=== PATIENT | female | born 1955 | race Caucasian/White ===

== ENCOUNTER 2019-08-20 14:04 | Outpatient (CLI) | payer MEDICARE, SELFPAY ==
--- NOTE | 2019-08-20 14:13 | XR_ITS ---
WS: [id number] SCREENING DEXA SCAN [place] CLINICAL INFORMATION: ENCOUNTER FOR SCREENING FOR OSTEOPOROSIS COMPARISON: 2017 FINDINGS: The L1-L4 bone mineral density measures 1.003 g/cm2. This corresponds to a T score score of -1.5 and Z score of 0.6. Left femoral neck bone mineral density measures 0.716 g/cm2. This corresponds to a T score of -2.3 an d Z score of -0.7. Right femoral neck bone mineral density measures 0.766 g/cm2. This corresponds to a T score -1.9of an d Z score of -0.3. Mean femoral neck bone mineral density measures 0.741 g/cm2. This corresponds to a T score of -2.1 an d Z score of -0.5. XR/XR DEXA axial skeleton* [id number] IMPRESSION: Osteopenia Patient's FRAX calculated 10 year probability for major osteoporotic fracture i s 17.2 % and osteoporotic hip fracture is 5.5%. Since 2017, bone mineral density in the lumbar spine has increased +4.5% and de creased -3.1% in the femoral necks.
== END 2019-08-20 14:05 | disposition home or self-care (01) ==
LOC: RADWPI 14:12
PROVIDERS: Family Provider Family Medicine; PCP Family Medicine; Visit Provider Family Medicine
DX: Z78.0 Asymptomatic menopausal state (principal); Z13.820 Encounter for screening for osteoporosis
CPT/HCPCS: 77080

== ENCOUNTER 2019-09-26 10:06 | Outpatient (RCR) | payer MEDICARE, SELFPAY ==
[2019-09-19 10:30] VITALS: BP 124/55; PULSE 67; RESP 20; TEMP 36; O2SAT 96; BMI 17.8
[2019-09-26 10:19] VITALS: BP 164/67; PULSE 73; RESP 18; TEMP 36.6; O2SAT 99
== END 2019-10-04 23:59 | disposition home or self-care (01) ==
LOC: GILAB 10:06
PROVIDERS: Family Provider Family Medicine; PCP Family Medicine; Visit Provider Nurse Practitioner Family
DX: D50.9 Iron deficiency anemia, unspecified (principal)
CPT/HCPCS: 96365; J1439

== ENCOUNTER 2019-12-17 09:04 | Outpatient (CLI) | payer MEDICARE, SELFPAY ==
--- NOTE | 2019-12-17 09:13 | CT_ITS ---
WS: [id number] CT CHEST TECHNIQUE: Noncontrast CT of the chest with coronal and sagittal reformatted images. CLINICAL INFORMATION: PULMONARY NODULE COMPARISON: CT chest 12/20/2018 and 07/20/2017, June 19, 2016, December 10, 2015 DLP: 509.[address] scans at [facility] use at least one of these dose optimization techniques: automat ed exposure control; mA and/or kV adjustment per patient size (includes targeted exams where dose is matched to clinical indication); or iterative reconstruction. FINDINGS: Advanced chronic emphysematous changes. No acute pulmonary infiltrates. Stable fibrosis in the left u pper lobe anteriorly. A few calcified granulomas. Stable noncalcified tiny nodules in the left lower lobe the largest subpleural measuring 3 mm. No other suspicious pulmonary parenchymal opacities. 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 No mediastinal or hilar lymphadenopathy. Aortic arch calcification. Coronary calcification. No axilla ry lymphadenopathy. Partially visualized adrenal glands are normal. Splenic artery calcification. Mil d spondylitic changes thoracic spine with mild kyphosis. CT/CT chest wo con [id number] IMPRESSION: 1. Stable tiny noncalcified nodules in the left lower lobe the largest measuri ng 3 mm. 2. Advanced chronic emphysematous changes. No acute pulmonary infiltrates. 3. No mediastinal or hilar lymphadenopathy. 4. Moderate aortic atheromatous disease. Coronary calcification.
== END 2019-12-17 09:05 | disposition home or self-care (01) ==
PROVIDERS: Family Provider Family Medicine; PCP Family Medicine; Visit Provider Family Medicine
DX: R91.1 Solitary pulmonary nodule (principal); I70.0 Atherosclerosis of aorta; I25.10 Atherosclerotic heart disease of native coronary artery without angina pectoris
CPT/HCPCS: 71250

== ENCOUNTER → 2020-01-26 15:29 | Outpatient (BNVA) | payer MEDICARE, SELFPAY | PROVIDERS: Family Provider Family Medicine; PCP Nurse Practitioner Family; Visit Provider Nurse Practitioner Family | DX: J44.1 Chronic obstructive pulmonary disease with (acute) exacerbation (principal) | CPT/HCPCS: 71046 ==

== ENCOUNTER → 2020-02-11 16:52 | Outpatient (BNVA) | payer MEDICARE, SELFPAY | PROVIDERS: Family Provider Family Medicine; PCP Nurse Practitioner Family; Visit Provider Nurse Practitioner Family | DX: J44.1 Chronic obstructive pulmonary disease with (acute) exacerbation (principal); R25.2 Cramp and spasm; J44.9 Chronic obstructive pulmonary disease, unspecified; D50.9 Iron deficiency anemia, unspecified; F17.200 Nicotine dependence, unspecified, uncomplicated; R91.8 Other nonspecific abnormal finding of lung field | CPT/HCPCS: 80053; 83540; 83735; 85025 ==

== ENCOUNTER → 2020-03-04 10:45 | Outpatient (BNVA) | payer MEDICARE, SELFPAY | PROVIDERS: Family Provider Family Medicine; PCP Nurse Practitioner Family; Visit Provider Family Medicine | DX: R25.2 Cramp and spasm (principal); M54.9 Dorsalgia, unspecified; G89.29 Other chronic pain; E78.5 Hyperlipidemia, unspecified; J44.1 Chronic obstructive pulmonary disease with (acute) exacerbation; M81.0 Age-related osteoporosis without current pathological fracture; K21.9 Gastro-esophageal reflux disease without esophagitis; F41.9 Anxiety disorder, unspecified; G47.00 Insomnia, unspecified; R52 Pain, unspecified | CPT/HCPCS: 80053; 80061; 85025 ==

== ENCOUNTER → 2020-04-02 08:38 | Outpatient (BNVA) | payer MEDICARE, SELFPAY | PROVIDERS: Family Provider Family Medicine; PCP Nurse Practitioner Family; Visit Provider Internal Medicine | DX: J44.1 Chronic obstructive pulmonary disease with (acute) exacerbation (principal) | CPT/HCPCS: 87635 ==

== ENCOUNTER → 2020-04-23 10:03 | Outpatient (BNVA) | payer MEDICARE, SELFPAY | PROVIDERS: Family Provider Family Medicine; PCP Nurse Practitioner Family; Visit Provider Internal Medicine | DX: Z20.828 Contact with and (suspected) exposure to other viral communicable diseases (principal) | CPT/HCPCS: 87635 ==

== ENCOUNTER 2020-04-28 11:14 | Outpatient (CLI) | payer MEDICARE, SELFPAY ==
[2020-04-28 12:44] VITALS: BP 149/53; BP 151/63
--- NOTE | 2020-04-28 12:48 | PFTS_ITS ---
Date of Study:04/28/20 Date of Dictation: MECHANICS: Forced vital capacity (FVC) is normal. Forced expiratory volume in one second (FEV1) is reduced. FEV1/FVC is reduced. FLOW VOLUME LOOP: Reduced flow at all lung volumes with significant scooping. LUNG VOLUMES: Total lung capacity (TLC) is increased. Residual volume (RV) is increased. DIFFUSING CAPACITY FOR CARBON MONOXIDE: Severely reduced. INTERPRETATION: The pulmonary function tests are consistent with moderate obstruction. There is no significant postbronchodilator response. Lung volumes are consistent with hyperinflation and air trapping. Gas exchange (DLCO) is severely reduced. This has not been corrected for hemoglobin. The reduction appears disproportionately low compared to the spirometry. MTDD
== END 2020-04-28 11:15 | disposition home or self-care (01) ==
LOC: RT 11:15
PROVIDERS: PCP Nurse Practitioner Family; Visit Provider Internal Medicine Pulmonary Disease
DX: J44.9 Chronic obstructive pulmonary disease, unspecified (principal)
CPT/HCPCS: 94060; 94618; 94726; 94729; J7611

== ENCOUNTER 2020-05-03 11:27 | Outpatient (CLI) | payer MEDICARE, SELFPAY ==
--- NOTE | 2020-05-03 11:37 | XR_ITS ---
WS: [id number] SHOULDER RIGHT TECHNIQUE: 3 views of the right shoulder CLINICAL INFORMATION: RIGHT ANTERIOR SHOULDER PAIN COMPARISON: None. FINDINGS: Normal acromioclavicular joint. Normal glenohumeral joint. Acromion is normal in appearance. Normal g lenoid. No evidence of acute fracture dislocation. XR/XR shoulder RT min 2V* [id number] IMPRESSION: Normal right shoulder.
== END 2020-05-03 11:28 | disposition home or self-care (01) ==
LOC: RADWPI 11:30
PROVIDERS: PCP Family Medicine; Visit Provider Nurse Practitioner Family
DX: M25.511 Pain in right shoulder (principal)
CPT/HCPCS: 73030

== ENCOUNTER 2020-08-31 09:51 | Outpatient (CLI) | payer MEDICARE, SELFPAY ==
--- NOTE | 2020-08-31 09:59 | MM_ITS ---
WS: [id number] BILATERAL SCREENING DIGITAL MAMMOGRAM WITH CAD HISTORY: SCREENING COMPARISON: 12/12/2016, 07/21/2014 and 09/16/2008 Bilateral CC and MLO views submitted. Computer aided detection analyzed. Breast composition: There are scattered areas of fibroglandular density. No suspicious masses, microc alcifications or architectural distortion. Calcifications are noted posterior to the LEFT nipple. The se calcifications have been present on multiple prior examinations. 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 Additional biopsy clip in the superior posterior LEFT breast. MM/[place] [id number] IMPRESSION: BI-RADS: 2-Benign FOLLOW UP: 1 Year Follow-up
== END 2020-08-31 09:52 | disposition home or self-care (01) ==
LOC: RADSHAW 09:54
PROVIDERS: PCP Family Medicine; Visit Provider Nurse Practitioner Family
DX: Z12.31 Encounter for screening mammogram for malignant neoplasm of breast (principal)
CPT/HCPCS: 77067

== ENCOUNTER 2020-09-29 11:07 | Outpatient (CLI) | payer MEDICARE, SELFPAY ==
--- NOTE | 2020-09-29 11:35 | CT_ITS ---
WS: [id number] CT HEAD WITH AND WITHOUT CONTRAST HISTORY: Intractable HEADACHES TECHNIQUE: Noncontrast 2.5 mm axial images obtained from the vertex to the skull base. Additional kellie ging performed at 2.5 mm axial images status post IV contrast. Bone and soft tissue windows are revie wed. All CT scans at [facility] use at least one of these dose optimization techniques: a utomated exposure control; mA and/or kV adjustment per patient size (includes targeted exams where do se is matched to clinical indication); or iterative reconstruction. CONTRAST: Omnipaque 300; 95 mL IV. DLP: 1618.32 mGy-cm. COMPARISON: 02/16/2015 No acute intracranial hemorrhage, edema or midline shift. There is extensive confluent chronic appear ing white matter disease, greatest on the LEFT. Progressed since 02/16/2015. More than expected for th e patient's age. No enhancing mass or vascular malformations identified. Dural venous sinuses are normally enhancing. Visualized [place] is unremarkable. There are a few scattered calcified plaques within the i ntracranial carotid arteries. No occlusion or aneurysm. Paranasal sinuses as visualized: Clear. Mastoid air cells: Clear. Calvarium and scalp: Intact. CT/CT head wo/w con [id number] IMPRESSION: 1. No acute intracranial hemorrhage. 2. No enhancing masses. 3. Mild progression of chronic microvascular ischemic change since 2014. More advanced changes and expected for the patient's age. Consider diabetes, hyperte nsion and collagen vascular disease is a possibility. Less likely demyelinating disease. 4. Mild atherosclerosis intracranial carotid arteries.
[2020-09-29 11:57] LABS: Blood Urea Nitrogen 10 mg/dL (8-23); Glomerular Filtration Rate 83.5 mL/min (90-130)
[2020-09-29] MEDS: iohexol 300 mg/mL 100 mL Btl IV (12:06)
== END 2020-09-29 11:08 | disposition home or self-care (01) ==
PROVIDERS: PCP Family Medicine; Visit Provider Family Medicine
DX: R51.9 Headache, unspecified (principal); I65.29 Occlusion and stenosis of unspecified carotid artery; I67.82 Cerebral ischemia
CPT/HCPCS: 70470; 82565; 84520; Q9967

== ENCOUNTER 2020-12-23 10:38 | Outpatient (CLI) | payer MEDICARE, SELFPAY ==
--- NOTE | 2020-12-23 | USCV_ITS ---
Mary Peterson Age: 65 Gender: F : 1955 Exam Date: 12/23/2020 11:11 Ordering Phys: Haile Agosto MD Technologist: Marilia Obregon [place] [facility] [place] Ind[place]: HISTORY: Varicose veins PROCEDURES: Comparison: none available. Right duplex Venous Insufficiency study of the Deep and Superficial systems was carried out according to normal protocol with the patient in supine positon for deep system and dependent position for the superficial system. Serial compression, augmentation maneuvers, and spectral Doppler flow evaluation were performed. An evaluation for venous insufficiency was also completed. FINDINGS: No evidence of DVT seen in any vessel visualized at this time. There is evidence of deep vein insufficiency in the right femoral and popliteal veins. There is evidence of superficial insufficiency in the right greater saphenous vein at the SFJ, distal thigh and below the knee. CONCLUSIONS 1. No evidence of DVT in the above-mentioned identifiable veins on the right side. 2. Significant venous reflux of greater than 1000 ms were noted in the right femoral and popliteal vein 3. Significant venous reflux of greater than 500 ms were noted at the right saphenofemoral junction, distal and below-knee greater saphenous vein segments. The distal and below-knee greater saphenous vein segments were measuring 0.32 and 0.26 cm in diameter . They were less than 1 cm deep from the surface-possibly not ideal for ablation Dr Felisha Foy MD [facility] (Electronically Signed) Final Date: 24 Dec 2020 16:06 S
--- NOTE | 2020-12-23 10:49 | CT_ITS ---
WS: [id number] CT LUMBAR SPINE TECHNIQUE: Noncontrast CT of the lumbar spine with coronal and sagittal reformatted images. CLINICAL INFORMATION: LUMBAR AND SACRAL SPONDYLARTHRITIS COMPARISON: CT 4 21,015 DLP: 890.[address] scans at [facility] use at least one of these dose optimization techniques: automat ed exposure control; mA and/or kV adjustment per patient size (includes targeted exams where dose is matched to clinical indication); or iterative reconstruction. FINDINGS: Mild lumbar curve convex left. Grade 1 anterolisthesis L5 on S1 with bilateral pars defects. Grade 1 anterolisthesis measures 3.2 mm. This is increased slightly since 2015. L1-L2: Mild annular bulging with slight effacement of ventral thecal sac. Small left foraminal protru linda with narrowing of the left subarticular recess. Mild left foraminal narrowing. Right foramen is patent. L2-L3: Mild annular bulging with mild central canal stenosis. Slight impingement traversing L3 nerve roots bilaterally. Small bilateral foraminal protrusions with mild foraminal narrowing. Mild facet ar thropathy. L3-L4: Mild annular bulging. Mild central canal stenosis. Slight impingement traversing L4 nerve root s bilaterally. Moderate facet arthropathy. Mild right greater than left foraminal narrowing with smal l foraminal protrusions. L4-L5: Mild annular bulging with slight effacement of the ventral thecal sac. Mild right greater than left foraminal narrowing. Moderate facet arthropathy. L5-S1: Grade 1 anterolisthesis L5 on S1 with bilateral pars defects. Annular bulging. Tiny central pr otrusion. Slight effacement of ventral thecal sac. Moderate right greater than left foraminal narrowi ng. Mild facet arthropathy. Visualized pelvic bony structures: Normal. Paravertebral soft tissues: Normal. CT/CT lumbar spine wo con* [id number] IMPRESSION: 1. Mild lumbar curve. No acute compression. No high-grade central canal stenos is. 2. Grade 1 anterolisthesis L5 on S1 measuring 3.2 mm slightly progressed since 2014. 3. Mild central canal stenosis L3-L4 and L4-L5. 4. Mild to moderate foraminal narrowing more prominent at left L1-2, right L3- L4, right L4-L5. 5. Moderate bilateral foraminal narrowing L5-S1 right greater than left.
== END 2020-12-23 10:39 | disposition home or self-care (01) ==
PROVIDERS: PCP Family Medicine; Visit Provider Family Medicine
DX: M47.817 Spondylosis without myelopathy or radiculopathy, lumbosacral region (principal); I73.9 Peripheral vascular disease, unspecified; I83.91 Asymptomatic varicose veins of right lower extremity; I87.2 Venous insufficiency (chronic) (peripheral)
CPT/HCPCS: 72131; 93971

== ENCOUNTER 2021-02-23 08:51 | Outpatient (CLI) | payer MEDICARE, SELFPAY ==
--- NOTE | 2021-02-23 09:01 | CT_ITS ---
WS: [id number] CT ABDOMEN WITH CONTRAST HISTORY: NAUSEA AND VOMITING Contiguous single phase 5 mm axial imaging performed to the abdomen. Oral contrast has been provided. Coronal and sagittal reformats are submitted. All CT scans at [facility] use at least on e of these dose optimization techniques: automated exposure control; mA and/or kV adjustment per yousif ent size (includes targeted exams where dose is matched to clinical indication); or iterative reconst ruction. CONTRAST: Omnipaque 300; 75 mL IV. DLP: 362.59 mGycm COMPARISON: 02/10/2019 Lower thorax: Severe hyperexpansion and emphysematous changes at the lung bases. No pulmonary mass or pneumonia. Heart size is normal. No hiatal hernia. Liver: Liver is mildly enlarged. No bile duct dilatation or mass. Vein is normally enhancing. Gallbladder: Prior cholecystectomy. Pancreas: Pancreas is atrophied and poorly visualized without fat surrounding the pancreas. Spleen: Normal size spleen with granulomata. Adrenals: Normal. Right kidney: Normal. Left kidney: Normal. Aorta: Heavily calcified aorta. Calcifications extend into the iliac vessels. No aneurysm. There is m arked calcification throughout the splenic artery. GI tract: There is marked fecal retention throughout the visualized colon. No obstruction evident. Adenopathy is difficult to evaluate for without mesenteric and retroperitoneal fat. Abdominal wall: No hernia. Visualized osseous structures: L5 anterolisthesis by 5 mm with bilateral pars defects. CT/CT abdomen w con* [id number] IMPRESSION: 1. Severe chronic emphysematous changes at the lung bases. 2. Moderate atherosclerosis aorta and splenic artery. 3. Prior cholecystectomy. 4. No abnormalities are identified but the lack of fat makes evaluation for haynes btle masses or lymph nodes very difficult. 5. Grade 1 anterolisthesis of L5 and bilateral spondylolysis.
[2021-02-23] MEDS: iohexol 300 mg/mL 50 mL Btl PO (09:26)
[2021-02-23 09:49] LABS: Blood Urea Nitrogen 8 mg/dL (8-23); Glomerular Filtration Rate 71.5 mL/min (90-130)
[2021-02-23] MEDS: iohexol 300 mg/mL 100 mL Btl IV (09:58)
== END 2021-02-23 08:52 | disposition home or self-care (01) ==
PROVIDERS: PCP Family Medicine; Visit Provider Family Medicine
DX: R11.2 Nausea with vomiting, unspecified (principal); I70.0 Atherosclerosis of aorta; Z90.49 Acquired absence of other specified parts of digestive tract
CPT/HCPCS: 74160; 82565; 84520; Q9967

== ENCOUNTER 2021-06-03 09:25 | Outpatient (CLI) | payer MEDICARE, SELFPAY ==
--- NOTE | 2021-06-03 09:38 | CT_ITS ---
WS: [id number] Exam: CT abdomen wo con [id number] Date/Time of Exam: 06/03/2021 9:39 AM Reason For Exam: RIGHT UPPER QUADRANT ABDOMINAL PAIN DLP: 313.[address] scans at [facility] use at least one of these dose optimization techniques: automated e xposure control; mA and/or kV adjustment per patient size (includes targeted exams where dose is matc hed to clinical indication); or iterative reconstruction. Comparison 02/23/2021. Emphysematous changes noted in the lower lung zones. The liver, spleen and pancreas appear normal. Se veral scattered calcified granulomas in the spleen. The abdominal aorta is normal in caliber. Kidneys and adrenal glands are unremarkable. The gallbladder is surgically absent. No free air. No lymphaden opathy. Atherosclerotic plaquing of the aorta and splenic artery. No free fluid. Small bowel loops ar e normal in caliber. Moderate amount retained stool in the colon. The appendix is not completely visu alized. No destructive bone lesions are seen. CT/CT abdomen con [id number] IMPRESSION: 1. Moderately advanced emphysematous changes in the lower lung zones. 2. No mass, lymphadenopathy or acute process in the abdomen or pelvis. 3. L5 spondylolysis. Minimal spondylolisthesis. 4. Constipation.
[2021-06-03] MEDS: iohexol 300 mg/mL 50 mL Btl PO (09:40)
== END 2021-06-03 09:26 | disposition home or self-care (01) ==
PROVIDERS: PCP Family Medicine; Visit Provider Family Medicine
DX: R10.11 Right upper quadrant pain (principal); K59.00 Constipation, unspecified; M47.816 Spondylosis without myelopathy or radiculopathy, lumbar region
CPT/HCPCS: 74150; Q9967

== ENCOUNTER 2021-06-14 08:44 | Outpatient (CLI) | payer MEDICARE, SELFPAY ==
--- NOTE | 2021-06-14 08:58 | USCV_ITS ---
KristenMisla Age: 65 Gender: F : 1955 Exam Date: 06/14/2021 08:45 Ordering Phys: Haile Agosto MD Technologist: Rosalio Nevarez Metalizing Supervisor [place] [facility] [place] PVD RIGHT LEFT Brachial 135.00 mmHg Brachial 141.00 mmHg Pressure (mmHg) Waveform Pressure (mmHg) Waveform 150.00 Above Knee 156.00 160.00 Below Knee 152.00 130.00 WEIGHER AND GRADER 156.00 140.00 DPA 140.00 0.99 Ankle/Brachial Index 1.11 60.00 Pre-Exercise Toe Pressure 64.00 0.43 Pre-Exercise Toe/Brachial Index 0.45 FINDINGS Normal resting ABIs bilaterally Diminished resting TBI of 0.43 on the right side and 0.45 on the left side Minimal blunting of the PVR waveforms bilaterally CONCLUSIONS Normal resting ABIs bilaterally. Diminished resting TBI, may suggest mild peripheral arterial disease, possibly involving the distal vessels Dr Felisha Foy MD [facility] (Electronically Signed) Final Date: 15 June 2021 11:39 S
== END 2021-06-14 08:45 | disposition home or self-care (01) ==
LOC: RAD 08:46
PROVIDERS: PCP Family Medicine; Visit Provider Family Medicine
DX: I73.9 Peripheral vascular disease, unspecified (principal)
CPT/HCPCS: 93923

== ENCOUNTER → 2021-08-23 19:53 | Outpatient (BNVA) | payer MEDICARE, SELFPAY | PROVIDERS: PCP Family Medicine; Visit Provider Nurse Practitioner Family | DX: Z20.822 Contact with and (suspected) exposure to COVID-19 (principal); J44.1 Chronic obstructive pulmonary disease with (acute) exacerbation | CPT/HCPCS: 87635 ==

== ENCOUNTER 2021-11-09 12:05 | Outpatient (CLI) | payer MEDICARE, SELFPAY ==
--- NOTE | 2021-11-09 12:13 | CT_ITS ---
WS: [id number] LDCT LUNG CANCER SCREENING HISTORY: HX OF TOBACCO USE TECHNIQUE: Axial imaging performed from the apices to 1 cm below the costophrenic angles. Coronal and sagittal reformats are submitted with axial MIP series. All CT scans at [facility] use at least one of these dose optimization techniques: automated exposure control; mA and/or kV adjustment per patient size (includes targeted exams where dose is matched to clinical indication); or iterativ e reconstruction. DLP: 60.13 mGy.cm DIvol: Mean CTDIvol: 1.58 (mGy) COMPARISON: 12/17/2019 Diagnostic quality: Satisfactory Lungs: Marked pleural thickening and fibrosis at the apices, LEFT greater than RIGHT. Benign granulom a at the LEFT apex. 5 mm irregular nodule in the LEFT lower lobe present since 2019. Additional pleur al-based nodule LEFT lower lobe is stable. Marked pulmonary hyperexpansion from emphysema. Heart: Normal size heart. Other findings: Moderate atherosclerotic plaque within the thoracic aorta. Pulmonary artery size is d ilated. No adenopathy is appreciated. Lymph nodes would be very difficult to visualize on this examin ation. Increase in thoracic kyphosis. CT/CT lung screening [id number] IMPRESSION: LUNG-RADS: 2-Benign Appearance or Behavior FOLLOW UP: 12 Month: Continue annual screening with LDCT OTHER FINDINGS (S MODIFIER): None.
== END 2021-11-09 12:06 | disposition home or self-care (01) ==
PROVIDERS: PCP Family Medicine; Visit Provider Family Medicine
DX: Z12.2 Encounter for screening for malignant neoplasm of respiratory organs (principal); F17.210 Nicotine dependence, cigarettes, uncomplicated
CPT/HCPCS: 71271

== ENCOUNTER 2021-12-19 09:41 | Outpatient (CLI) | payer MEDICARE, SELFPAY ==
--- NOTE | 2021-12-19 10:08 | USCV_ITS ---
Mary Peterson Age: 66 Gender: F : 1955 Exam Date: 12/19/2021 10:25 Ordering Phys: Haile Agosto MD Technologist: Rosalio Nevarez [place] [facility] [place]: chronic fatigue BP: 120 / 60 HR: 65 Rhythm: Sinus Technical Quality: Adequate MEASUREMENTS (Male / Female) Normal Values 2D ECHO LV Diastolic Diameter PLAX 3.2 cm 4.2 - 5.9 / 3.9 - 5.3 cm LV Systolic Diameter PLAX 2.0 cm IVS Diastolic Thickness 1.0 cm 0.6 - 1.0 / 0.6 - 0.9 cm IVS Systolic Thickness 1.1 cm LVPW Diastolic Thickness 1.6 cm 0.6 - 1.0 / 0.6 - 0.9 cm LVPW Systolic Thickness 1.8 cm LVOT Diameter 2.0 cm LV Ejection Fraction 2D Teich 68.7 % LV Ejection Fraction MOD 2C 69.7 % LV Ejection Fraction 2C AL 69.5 % LA Diameter 3.0 cm LA Width 2.6 cm LA Height 3.4 cm RA Width 2.8 cm RA Height 3.5 cm Aorta at Sinotubular Diameter 1.8 cm IVC Diameter 2.0 cm M-MODE Aortic Annulus Diameter 2.7 cm LA Ao Ratio MM 1.1 MV E Point Septal Separation 0.4 cm DOPPLER AV Peak Velocity 149.0 cm/s LVOT Peak Velocity 128.0 cm/s AV Area Cont Eq vti 2.6 cm squared AV Area Cont Eq pk 2.8 cm squared MV Peak Velocity 147.0 cm/s MV Area PHT 3.9 cm squared Mitral E to A Ratio 1.1 MV E' Velocity 54.0 cm/s Mitral E to MV E' Ratio 10.3 Mitral E to LV E' Lateral Ratio 10.5 Mitral E to LV E' Septal Ratio 10.2 TR Peak Velocity 317.9 cm/s TR Peak Gradient 40.4 mmHg TR Mean Velocity 238.6 cm/s TR Mean Gradient 25.4 mmHg TR Velocity Time Integral 101.4 cm Right Atrial Pressure 3.0 mmHg Pulmonary Artery Systolic Pressu 43.4 mmHg RV Acceleration Time 0.1 s RV Ejection Time 0.3 s RV AcT/ET 0.4 FINDINGS Left Ventricle Normal left ventricular size. LV systolic function is normal with EF of 55-60%. No regional wall motion abnormalities. Diastolic function is normal Right Ventricle The right ventricle is normal in size and function. Right Atrium The right atrium is normal in size. Left Atrium The left atrium is normal in size. Mitral Valve Mitral valve is thickened without significant stenosis or prolapse. There is mild mitral regurgitation. Aortic Valve Structurally normal aortic valve without significant sclerosis or stenosis. There is no aortic regurgitation. Tricuspid Valve Structurally normal tricuspid valve without significant stenosis. Mild tricuspid regurgitation. RVSP is 45-50mmHg. This is consistent with moderate pulmonary hypertension Pulmonic Valve Structurally normal pulmonic valve without significant stenosis. There is no pulmonic regurgitation. Pericardium Normal pericardium without effusion. Aorta Normal ascending aorta dimension. IVC The inferior vena cava is normal CONCLUSIONS LV systolic function is normal with EF EF of 55 to 60%. Diastolic function is normal. Mild mitral regurgitation. Mild tricuspid regurgitation. Moderate pulmonary hypertension seen. No comparison studies available Mikhail Miranda MD (Electronically Signed) Final Date: 24 Dec 2021 12:38 S
== END 2021-12-19 09:42 | disposition home or self-care (01) ==
PROVIDERS: PCP Family Medicine; Visit Provider Family Medicine
DX: R53.82 Chronic fatigue, unspecified (principal); I10 Essential (primary) hypertension
CPT/HCPCS: 93306

== ENCOUNTER → 2022-05-02 11:04 | Outpatient (BNVA) | payer MEDICARE, SELFPAY | PROVIDERS: PCP Family Medicine; Visit Provider Anesthesiology Pain Medicine | DX: M54.16 Radiculopathy, lumbar region (principal); M43.17 Spondylolisthesis, lumbosacral region; G89.29 Other chronic pain; M51.36 Other intervertebral disc degeneration, lumbar region; M47.816 Spondylosis without myelopathy or radiculopathy, lumbar region; M43.16 Spondylolisthesis, lumbar region; F17.210 Nicotine dependence, cigarettes, uncomplicated; M79.604 Pain in right leg; M79.605 Pain in left leg | CPT/HCPCS: 72120; 99205 ==

== ENCOUNTER → 2022-05-18 14:03 | Outpatient (BNVA) | payer MEDICARE, SELFPAY | PROVIDERS: PCP Family Medicine; Visit Provider Anesthesiology Pain Medicine | DX: G89.29 Other chronic pain (principal); M47.816 Spondylosis without myelopathy or radiculopathy, lumbar region; F17.210 Nicotine dependence, cigarettes, uncomplicated | CPT/HCPCS: 64493; 64494; 64495; J3490 ==

== ENCOUNTER → 2022-06-06 09:36 | Outpatient (BNVA) | payer MEDICARE, SELFPAY | PROVIDERS: PCP Family Medicine; Visit Provider Anesthesiology Pain Medicine | DX: G89.29 Other chronic pain (principal); M51.36 Other intervertebral disc degeneration, lumbar region; M54.16 Radiculopathy, lumbar region; M47.816 Spondylosis without myelopathy or radiculopathy, lumbar region; M43.16 Spondylolisthesis, lumbar region; M79.604 Pain in right leg; M79.605 Pain in left leg; F17.210 Nicotine dependence, cigarettes, uncomplicated | CPT/HCPCS: 99214 ==

== ENCOUNTER 2022-07-10 11:17 | Emergency (ER) | payer MEDICARE, SELFPAY ==
[2022-07-10 11:55] VITALS: BP 109/62; PULSE 86; RESP 18; TEMP 36.9; O2SAT 92
--- NOTE | 2022-07-10 12:03 | XR_ITS ---
WS: [id number] EXAMINATION: XR chest 1V portable [id number] REASON FOR EXAM: cough and fever COMPARISON: 01/26/2020 ORDER DATE: 07/10/2022 12:28 PM FINDINGS: There are scattered perihilar granulomatous calcifications. There are chronically increased perihilar /basilar bronchovascular and interstitial thickening with hyperinflation. The cardiac and mediastin al outlines are unremarkable. There are no pleural effusions. There is a very appearing possible nodu le in the central left lung base estimated at 8 to 10 mm in size which was not apparent on the prior chest radiograph. Old granuloma in the left upper lobe again noted. Chronic degenerative spine change s are present. XR/XR chest 1V portable [id number] IMPRESSION: DIFFUSE PULMONARY CHANGES OF COPD. SUSPICIOUS POSSIBLE PULMONARY NODULE IN THE CENTRAL LEFT LUNG BASE. RECOMMEND S CREENING CT STUDY OF THE CHEST FOR FURTHER ASSESSMENT.
--- NOTE | 2022-07-10 12:20 | ED_ITS ---
HPI - URI/Sore Throat General: Chief Complaint: Fever Stated Complaint: fever, cough, dizzy Time Seen by Provider: 07/10/22 12:03 History of Present Illness: Patient is a 67-year-old female comes to the ED with upper respiratory symptoms. Has a history of COPD and is not on any oxygen at home. For the past week patient has had a cough that is productive with thick green sputum, fever, nausea and diarrhea. Denies any chest pain. Associated symptoms: Reports diarrhea, fever(s) and nausea; Deny abdominal pain, chills, chest pain, headache(s), nasal congestion or vomiting Review of Systems Const: Reports: fever(s); Denies: chills or fatigue Eyes: Denies: change in vision or eye discomfort ENMT: Denies: throat pain, odynophagia, nasal discharge or nasal congestion Card: Denies: chest pain, palpitations, edema, swelling of feet/ankles, dyspnea on exertion or orthopnea Resp: Reports: productive cough; Denies: dyspnea or non-productive cough GI: Reports: nausea and diarrhea; Denies: abdominal pain, vomiting, constipation or hematochezia : Denies: flank pain, dysuria or hematuria Musc: Denies: neck pain, back pain or extremity swelling Skin/Breast: Denies: rash or new lesions Neuro: Denies: headache(s), numbness in extremities or weakness in extremities PFSH ED PFSH: Medical History COPD (chronic obstructive pulmonary disease) HTN (hypertension) Hyperlipidemia Surgical History History of surgery on left wrist History of vocal cord polypectomy Hx of cholecystectomy Social History Smoking and tobacco status: current every day smoker cigarettes Packs smoked per day: 1 Years cigarettes smoked: 46 Alcohol intake: never Lives independently: Yes Household members: significant other Marital status: / Current occupational status: retired History of recent travel: No Current gender identity: Female Physical Exam Const: COMMON NORMALS: no acute distress, patient oriented x3 and alert GENERAL APPEARANCE: cooperative and comfortable HENMT: COMMON NORMALS: normocephalic HEAD & SCALP: normocephalic MOUTH: Normal oral and palatal mucosa present THROAT: posterior oropharynx normal and uvula midline Neck/C-Spine: COMMON NORMALS: supple GENERAL: Yes normal visual inspection Resp: COMMON NORMALS: normal respiratory effort, No retractions, No use of accessory muscles and clear to auscultation bilaterally AUSCULTATION: clear to auscultation bilaterally Cardio: COMMON NORMALS: regular rate, regular rhythm, S1 normal heart sound present, S2 normal heart sound present, No gallops present (Cardio), No clicks present (Cardio), No murmurs present (Cardio) and Peripheral pulses 2+ throughout RATE: regular rate RHYTHM: regular rhythm HEART SOUNDS: S1 normal heart sound present and S2 normal heart sound present PERIPHERAL PULSES: Peripheral pulses 2+ throughout GI: COMMON NORMALS: Normal to inspection, nondistended, normoactive bowel sounds present, Soft to palpation, non-tender and no masses PALPATION: Yes Soft to palpation : COMMON NORMALS: Yes no CVA tenderness BLADDER/KIDNEY EXAM: Yes no CVA tenderness Back/Pelvis: COMMON NORMALS: no CVA tenderness Extremity: COMMON NORMALS: normal to inspection Neuro: COMMON NORMALS: patient oriented x3 SENSORIUM/ORIENTATION: Yes alert GAIT: Yes Normal gait present Skin: GENERAL SKIN EXAM: dry skin Course Vital Signs: Vital signs: Vital Signs Temperature 98.5 F 07/10/22 11:55 Pulse Rate 86 07/10/22 11:55 Respiratory Rate 18 07/10/22 11:55 Blood Pressure 109/62 07/10/22 11:55 Pulse Oximetry 92 07/10/22 11:55 Oxygen Delivery Me thod 07/10/22 11:55 MDM - URI/Sore Throat Medical Decision Making Patient is a 67-year-old female comes to the ED with upper respiratory symptoms. Has a history of COPD and is not on any oxygen at home. For the past week patient has had a cough that is productive with thick green sputum, fever, nausea and diarrhea. Denies any chest pain. Vitals are stable. Exam is benign. COVID is negative and influenza negative. Chest x-ray shows COPD and a pulmonary nodule in the left lung base. The recommended outpatient CT follow- up. Patient was diagnosed with acute bronchitis with COPD and an incidental lung nodule and discharged home with a prescription for steroid and antibiotic. Patient was told to follow-up with PCP about lung nodule and have PCP set up an outpatient CT of chest for further evaluation of it. Patient has done agree with plan. Lab Data I reviewed the patient's lab results. Radiology Impressions Chest X-Ray 07/10/22 12:03 IMPRESSION: DIFFUSE PULMONARY CHANGES OF COPD. SUSPICIOUS POSSIBLE PULMONARY NODULE IN THE CENTRAL LEFT LUNG BASE. RECOMMEND SCREENING CT STUDY OF THE CHEST FOR FURTHER ASSESSMENT. Laboratory Results Influenza Type A Ag negative (Negative) 07/10/22 12:18 Influenza Type B Ag negative (Negative) 07/10/22 12:18 SARS-CoV-2 Ag (Rapid) negative (Negative) 07/10/22 12:18 Discharge Plan Discharge Patient Disposition: Home Clinical Impression: Acute bronchitis with COPD, Incidental lung nodule, greater than or equal to 8mm Condition: Stable Prescriptions: New methylprednisolone 4 mg tablets,dose pack See Rx Instructions .ROUTE .COMPLEX Qty: 21 0RF Rx Instructions: orally per package directions doxycycline hyclate 100 mg capsule 100 mg PO BID 10 Days Qty: 20 0RF No Action Trelegy Ellipta 100-62.5-25 mcg blister with device 1 inh INHALATION DAILY Qty: 28 3RF nicotine (polacrilex) 2 mg gum 2 mg BUCCAL Q2H Qty: 20 3RF cyclobenzaprine 10 mg tablet 10 mg PO TID PRN (Reason: muscle spasm) Qty: 30 3RF gabapentin [Neurontin] 300 mg capsule 300 mg PO TID Qty: 90 3RF trazodone 50 mg tablet 50 mg PO DAILY Qty: 30 4RF venlafaxine [Effexor XR] 150 mg capsule,extended release 24hr 150 mg PO QPM Qty: 30 4RF cetirizine [Zyrtec] 10 mg tablet 10 mg PO DAILY PRN (Reason: allergy symptoms) Qty: 30 0RF albuterol sulfate [ProAir HFA] 90 mcg/actuation HFA aerosol inhaler 1 inh inhalation QID metoprolol tartrate 25 mg tablet 12.5 mg PO BID fluticasone propionate 50 mcg/actuation spray,suspension 2 spray intranasal DAILY Rx Instructions: administer into each nostril ferrous gluconate 240 mg (27 mg iron) tablet 240 mg PO DAILY albuterol sulfate 2.5 mg /3 mL (0.083 %) solution for nebulization 2.5 mg inhalation Q6H doxycycline hyclate 100 mg tablet 100 mg PO BID 7 Days Qty: 14 0RF bupivacaine (PF) 0.25 % (2.5 mg/mL) solution 1 ml intra-articular ONCE Qty: 1 0RF pravastatin 80 mg tablet 80 mg PO DAILY Qty: 90 0RF dexlansoprazole [Dexilant] 60 mg capsule,biphase delayed releas See Rx Instructions .ROUTE .COMPLEX Qty: 30 3RF Dose Instruction: TAKE ONE CAPSULE BY MOUTH DAILY Rx Instructions: TAKE ONE CAPSULE BY MOUTH DAILY alendronate 70 mg tablet See Rx Instructions .ROUTE .COMPLEX Qty: 4 4RF Dose Instruction: TAKE ONE TABLET BY MOUTH ONCE WEEKLY Rx Instructions: TAKE ONE TABLET BY MOUTH ONCE WEEKLY hydrocodone-acetaminophen 10-325 mg Tablet 1 tab PO Q8H PRN (Reason: Pain) Discharge Orders: Discharge ED (Routine); Ordered 07/10/22 Ordered By: Son Schafer Referrals: Gerard Iqbal MD [Primary Care Provider] - Discharge Diet: Regular Discharge Activity: Increase activity as tolerated Activity Restrictions/Additional Instructions: Follow-up with medical provider as directed in the next 3-5 days for reevaluation. Let your PCP know about the ED lung nodule findings on chest x- ray and they can set up an outpatient CT of chest done to better evaluate lung nodule. Take medications as prescribed. Return to the ER or your medical provider if condition worsens. Please read and understand discharge instructions. Thank you for choosing [facility] for your healthcare needs today. Please realize this is an emergency room and that we are providing you with a medical screening exam and this may not be complete and all inclusive of all the testing and or work up that you may need to determine your ailment or severity of your illness. It is very important that you follow up as instructed or that you return to the Emergency Department should you have concerns or if your condition changes or worsens in any way. Coding Level of Care Code ED Senior [employer] for [employer] Exam Comprehensive
[2022-07-10 12:55] LABS: Influenza A by IFA negative (Negative); Influenza B by IFA negative (Negative); SARS Covid-2 Antigen negative (Negative)
== END 2022-07-10 14:22 | disposition home or self-care (01) ==
PROVIDERS: Emergency Provider Physician Assistant; PCP Pediatrics
DX: J44.0 Chronic obstructive pulmonary disease with (acute) lower respiratory infection (principal); J20.9 Acute bronchitis, unspecified; R91.1 Solitary pulmonary nodule; Z20.822 Contact with and (suspected) exposure to COVID-19; I10 Essential (primary) hypertension; E78.5 Hyperlipidemia, unspecified; F17.210 Nicotine dependence, cigarettes, uncomplicated
CPT/HCPCS: 71045; 87426; 87804; 99283

== ENCOUNTER → 2022-08-28 17:48 | Outpatient (BNVA) | payer MEDICARE, SELFPAY | PROVIDERS: PCP Family Medicine; Visit Provider Family Medicine | DX: E78.5 Hyperlipidemia, unspecified (principal); G89.29 Other chronic pain; J43.2 Centrilobular emphysema; R49.0 Dysphonia; M54.16 Radiculopathy, lumbar region | CPT/HCPCS: 80053; 80061; 84443; 85025 ==

== ENCOUNTER → 2022-10-19 16:47 | Outpatient (BNVA) | payer MEDICARE, SELFPAY | PROVIDERS: PCP Family Medicine; Visit Provider Family Medicine | DX: R05.9 Cough, unspecified (principal) | CPT/HCPCS: 87400 ==

== ENCOUNTER 2022-10-20 14:27 | Outpatient (CLI) | payer MEDICARE, SELFPAY ==
[2022-10-20] MEDS: iohexol 350 mg/mL 500 mL Btl (per mL) IV (14:32)
--- NOTE | 2022-10-20 15:00 | CT_ITS ---
WS: [id number] CT CHEST TECHNIQUE: Noncontrast and Contrast enhanced CT of the chest with coronal and sagittal reformatted im ages. CLINICAL INFORMATION: R91.1 - Solitary pulmonary nodule COMPARISON: CT lung screening for 11/25 and December 17, 2019 DLP: 314.[address] scans at [facility] use at least one of these dose optimization techniques: automated e xposure control; mA and/or kV adjustment per patient size (includes targeted exams where dose is matc hed to clinical indication); or iterative reconstruction. FINDINGS: Moderate to advanced chronic emphysematous changes. Fibrosis in the lung apices. A few calc ified granulomas. A few stable LEFT lower lobe nodules. Patchy interstitial infiltrates in the LEFT l ower lobe along the fissure with small area of focal consolidation extending to the LEFT hilum measur ing 3.0 x 1.3 cm. This is new compared to previous. Bronchiectasis with subsegmental atelectasis in the LEFT upper lobe anteriorly is unchanged. Stable b iapical fibrosis. Chronic fibrosis with pleural thickening in the RIGHT middle lobe unchanged. Fibros is in the RIGHT lower lobe medially along the mediastinum unchanged. Ectatic ascending thoracic aorta measuring 3.1 cm unchanged. Proximal main pulmonary arteries are nor mal. Normal thyroid gland. No mediastinal or hilar lymphadenopathy. Normal caliber descending thoraci c aorta. Hepatomegaly. Prior cholecystectomy. Fluid distended stomach. Small esophageal hiatal hernia. Mild th oracic kyphosis. CT/CT chest wo/w con [id number] IMPRESSION: 1. Advanced chronic emphysematous changes. 2. New patchy interstitial and airspace infiltrates in the super segment LEFT lower lobe along the fissure and lingula. Recommend correlation for pneumonitis . 3. Area of associated subtotal consolidation along the LEFT hilum measuring 1. 3 x 2.9 CM. Recommend [address] follow-up to ensure resolution. 4. A few subcentimeter pulmonary nodules described above. Recommend 12 month f ollow-up. 5. No mediastinal or hilar lymphadenopathy. 6. Slightly ectatic 3.0 cm ascending thoracic aorta is unchanged. 7. Prior cholecystectomy. 8. Small esophageal hiatal hernia.
== END 2022-10-20 14:28 | disposition home or self-care (01) ==
LOC: RAD 14:30
PROVIDERS: PCP Family Medicine; Visit Provider Family Medicine
DX: R91.1 Solitary pulmonary nodule (principal); J43.9 Emphysema, unspecified; I77.810 Thoracic aortic ectasia; Z90.49 Acquired absence of other specified parts of digestive tract; K44.9 Diaphragmatic hernia without obstruction or gangrene
CPT/HCPCS: 71270; Q9967

== ENCOUNTER 2023-01-19 08:45 | Outpatient (CLI) | payer MEDICARE, SELFPAY ==
--- NOTE | 2023-01-19 09:00 | CT_ITS ---
WS: [id number] CT chest w con* [id number] HISTORY: R91.8 - Other nonspecific abnormal finding of lung field TECHNIQUE: Axial imaging performed through the thorax. Coronal and sagittal reformats are submitted. All CT scans at [facility] use at least one of these dose optimization techniques: automated exposure control; mA and/or kV adjustment per patient size (includes targeted exams where dose is mat ched to clinical indication); or iterative reconstruction. CONTRAST: Omnipaque 350; 100 mL IV. DLP: 175.34 mGy.cm COMPARISON: 10/20/2022 and 11/09/2021 Lungs and central airway: Marked pulmonary hyperinflation. Severe centrilobular emphysema. Progressio n of opacifications in the anterior lungs. Subsolid consolidations the LEFT hilum has progressed. The re are new irregular opacifications involving the small portion of the anterior upper lobes and lower lung bonilla. Smaller opacifications anteriorly in the RIGHT middle lobe. Benign granuloma LEFT upper lobe. Scattered areas of mucous bronchi particularly within the lower lung bonilla. Pleura: Normal. No pleural effusion. Heart and pericardium: Normal size heart with no pericardial effusion. Mediastinum and yaneth: No mediastinum or hilar adenopathy. Vessels: Mild atherosclerosis aorta. Pulmonary artery is slightly enlarged. Chest wall and lower neck: No soft tissue masses. Upper abdomen: Prior cholecystectomy. Suprarenal atherosclerotic disease. Splenic granulomata. Osseous structures: Mild increase in thoracic kyphosis with curvature and scoliosis. CT/CT chest w con* [id number] IMPRESSION: 1. Progression of irregular opacifications in the anterior lungs since 10/21/19 23. Involvement now with multi lobar. No improvement in the lingular subtotal c onsolidation. Due to the rapid onset favor inflammatory in etiology. 2. Scattered mucus retention in the bronchi, greatest lower lung bonilla. 3. Severe chronic emphysema. 4. No adenopathy.
[2023-01-19 09:21] LABS: Blood Urea Nitrogen 7 mg/dL (8-23); Glomerular Filtration Rate 99.1 mL/min (90-130)
[2023-01-19] MEDS: iohexol 350 mg/mL 500 mL Btl (per mL) IV (09:22)
== END 2023-01-19 08:46 | disposition home or self-care (01) ==
PROVIDERS: PCP Family Medicine; Visit Provider Nurse Practitioner Family
DX: J43.9 Emphysema, unspecified (principal); R91.8 Other nonspecific abnormal finding of lung field
CPT/HCPCS: 71260; 82565; 84520; Q9967

== ENCOUNTER 2023-02-26 15:28 | Outpatient (CLI) | payer MEDICARE, SELFPAY ==
--- NOTE | 2023-02-26 16:30 | CT_ITS ---
WS: [id number] CT ABDOMEN AND PELVIS WITH CONTRAST HISTORY: R63.4 - Abnormal weight loss TECHNIQUE: Imaging performed of the abdomen and pelvis with IV contrast. Single phase imaging of the abdomen. Coronal and sagittal reformats are submitted. All CT scans at [facility] use at [address] one of these dose optimization techniques: automated exposure control; mA and/or kV adjustment per patient size (includes targeted exams where dose is matched to clinical indication); or iterative re construction. IV CONTRAST: Omnipaque 350; 100 mL IV. Oral contrast: Yes. DLP: 247.93 mGy.cm COMPARISON: 06/03/2021 and 01/19/2023 Lower thorax: Patchy areas of consolidation in the anterior lower lung bonilla persists. There has bee n a moderate improvement in some of the patchy irregular shaped opacifications in the posterior lung bonilla. Heart is normal size. No hiatal hernia. Liver/biliary system: Normal size with no intrahepatic dilatation. Gallbladder: Status post cholecystectomy. Pancreas: Normal size pancreas and pancreatic duct. No adjacent inflammation. Spleen: Normal size spleen with several granulomata. Adrenal glands: Normal. Right kidney: Normal size kidney. Subcentimeter low-attenuation nodule in the cortex is too small to characterize. Left kidney: Normal. Aorta: Moderate atherosclerosis with no aneurysm. Extensive calcification involving the proximal mese nteric arteries. No occlusions. Lymphadenopathy: None. Free fluid: None. GI tract: Nondistended stomach. No small bowel obstruction. No wall thickening. Diffuse tortuosity of the colon with constipation. No diverticular disease. Abdominal wall: Unremarkable abdominal wall. No hernia. Pelvis: No free fluid or adenopathy within the pelvis. Moderate vascular calcifications. Bones: Mild spondylosis L5. Bilateral pars defects. CT/CT abdomen pelvis w con* [id number] IMPRESSION: 1. No acute abdominal or pelvic abnormalities are identified. 2. Moderate improvement in the opacifications noted at the lung bases as descr ibed on 01/19/2023. Persistent airspace disease may be postinflammatory. 3. Prior cholecystectomy. 4. Moderate constipation. No obstruction.
[2023-02-26] MEDS: iohexol 350 mg/mL 500 mL Btl (per mL) PO (16:42)
[2023-02-26] MEDS: iohexol 350 mg/mL 500 mL Btl (per mL) IV (16:42)
== END 2023-02-26 15:29 | disposition home or self-care (01) ==
PROVIDERS: PCP Family Medicine; Visit Provider Nurse Practitioner Family
DX: R63.4 Abnormal weight loss (principal); R91.8 Other nonspecific abnormal finding of lung field; Z90.49 Acquired absence of other specified parts of digestive tract; K59.00 Constipation, unspecified
CPT/HCPCS: 74177; Q9967

== ENCOUNTER → 2023-05-28 17:36 | Outpatient (BNVA) | payer MEDICARE, SELFPAY | PROVIDERS: PCP Family Medicine; Visit Provider Nurse Practitioner Family | DX: J32.9 Chronic sinusitis, unspecified (principal); E78.5 Hyperlipidemia, unspecified; E55.9 Vitamin D deficiency, unspecified; M51.36 Other intervertebral disc degeneration, lumbar region; Z78.0 Asymptomatic menopausal state; Z79.899 Other long term (current) drug therapy | CPT/HCPCS: 80053; 80061; 82306; 82607; 84443; 85025; 87400; 87426 ==

== ENCOUNTER 2023-06-14 13:35 | Outpatient (CLI) | payer MEDICARE, SELFPAY ==
--- NOTE | 2023-06-14 13:44 | MM_ITS ---
WS: [email or web address] BILATERAL SCREENING DIGITAL TOMOSYNTHESIS MAMMOGRAM WITH CAD HISTORY: Screening mammogram. COMPARISON: 08/31/2020, 12/12/2016, 07/21/2014 Bilateral CC and MLO views with tomosynthesis and synthetic mammography submitted. Computer aided det ection analyzed. Breast composition: There are scattered areas of fibroglandular density. No suspicious masses, microc alcifications or architectural distortion. Reidentified are calcifications within each breast which h ave been present on several prior examinations. No progression or soft tissue mass associated with th ina calcifications. IMPRESSION: MM/[place] [id number] BI-RADS: 2-Benign FOLLOW UP: 1 Year Follow-up
--- NOTE | 2023-06-14 14:00 | XR_ITS ---
WS: [email or web address] DEXA (DUAL ENERGY X-RAY ABSORPTIOMETRY) Bone mineral density was performed using a [employer] machine. HISTORY: Z78.0 - Asymptomatic menopausal state COMPARISON: 08/20/2019 Lumbar spine BMD (L1-L4): 1.021 g/cm2 T score: -1.3 Z score: 1.0 Total hip BMD: Left: 0.693 g/cm2. T score: -2.5 Z score: -0.6 Right: 0.716 g/cm2. T score: -2.3 Z score: -0.4 10 year probability of a major osteoporotic fracture is 18.7%. Compared to the prior study from 08/20/2019. Lumbar spine bone mineral density has increased by 1.8%. Bilateral hips bone mineral density has decreased by 4.9%. IMPRESSION: OSTEOPOROSIS based upon the WHO classification for females. Significant decrease in bone mineral density within the hips since the prior study. No significant ch osmany within the lumbar spine.
== END 2023-06-14 13:36 | disposition home or self-care (01) ==
PROVIDERS: PCP Family Medicine; Visit Provider Nurse Practitioner Family
DX: Z12.31 Encounter for screening mammogram for malignant neoplasm of breast (principal); Z13.820 Encounter for screening for osteoporosis; M81.0 Age-related osteoporosis without current pathological fracture; Z78.0 Asymptomatic menopausal state; M51.36 Other intervertebral disc degeneration, lumbar region
CPT/HCPCS: 77063; 77067; 77080

== ENCOUNTER → 2023-07-05 12:46 | Outpatient (BNVA) | payer MEDICARE, SELFPAY | PROVIDERS: PCP Family Medicine; Visit Provider Nurse Practitioner Family | DX: M81.0 Age-related osteoporosis without current pathological fracture (principal) | CPT/HCPCS: 80048 ==

== ENCOUNTER → 2023-07-26 08:54 | Outpatient (BNVA) | payer MEDICARE, SELFPAY | PROVIDERS: PCP Family Medicine; Visit Provider Internal Medicine Pulmonary Disease | DX: R91.8 Other nonspecific abnormal finding of lung field (principal); J43.2 Centrilobular emphysema; F17.210 Nicotine dependence, cigarettes, uncomplicated | CPT/HCPCS: 99204 ==

== ENCOUNTER 2023-08-09 16:38 | Outpatient (CLI) | payer MEDICARE, SELFPAY ==
--- NOTE | 2023-08-09 17:00 | CT_ITS ---
WS: [email or web address] CT chest wo con [id number] HISTORY: follow up pulmonary opacities TECHNIQUE: Axial imaging performed through the thorax. Coronal and sagittal reformats are submitted. All CT scans at [facility] use at least one of these dose optimization techniques: automated exposure control; mA and/or kV adjustment per patient size (includes targeted exams where dose is mat ched to clinical indication); or iterative reconstruction. CONTRAST: None DLP: 256.54 mGy.cm COMPARISON: 01/19/2023, 10/20/2022 Lungs and central airway: Marked hypoinflation with centrilobular emphysema. Biapical pulmonary fibro sis and scarring is unchanged. Benign granuloma LEFT upper lobe. Subpleural 8 mm nodule in the superi or segment LEFT lower lobe has slightly increased in size over the last several examinations. The ant erior pulmonary opacifications described on the most recent examination have significantly improved. Pleura: Normal. No pleural effusion. Heart and pericardium: Normal size heart with no pericardial effusion. Mediastinum and yaneth: No adenopathy identified on this unenhanced exam. Vessels: Advanced atherosclerosis aorta with ectasia. Pulmonary artery is also dilated. Extensive cor onary artery calcifications. Chest wall and lower neck: No soft tissue masses. Upper abdomen: Heavily calcified splenic artery. Splenic granulomata. Prior cholecystectomy. Osseous structures: Increase in thoracic kyphosis. IMPRESSION: 1. Moderate improvement in the anterior pulmonary opacifications that were described on 01/19/2023 wit h near complete resolution. Also improvement in the opacifications at the lung bases. 2. Interval increase in size superior segment LEFT lower lobe 8 mm pulmonary nodule. Indeterminate solid pulmonary nodule measuring 8 mm. In a high-risk patient with a solid nodule of 6- 8 mm, recommend CT at 6-12 months. If stable, then CT at 18-24 months. 3. Advanced emphysema. 4. Pulmonary hypertension and marked atherosclerosis aorta, coronary arteries and splenic artery.
== END 2023-08-09 16:39 | disposition home or self-care (01) ==
PROVIDERS: PCP Family Medicine; Visit Provider Internal Medicine Pulmonary Disease
DX: R91.8 Other nonspecific abnormal finding of lung field (principal); J43.9 Emphysema, unspecified; I27.20 Pulmonary hypertension, unspecified; I70.0 Atherosclerosis of aorta; I25.10 Atherosclerotic heart disease of native coronary artery without angina pectoris; I70.8 Atherosclerosis of other arteries
CPT/HCPCS: 71250

== ENCOUNTER 2023-11-20 09:36 | Outpatient (CLI) | payer MEDICARE, SELFPAY ==
--- NOTE | 2023-11-20 09:30 | CT_ITS ---
WS: [email or web address] CT chest wo con [id number] HISTORY: R91.8 - Other nonspecific abnormal finding of lung field TECHNIQUE: Axial imaging performed through the thorax. Coronal and sagittal reformats are submitted. All CT scans at [facility] use at least one of these dose optimization techniques: automated exposure control; mA and/or kV adjustment per patient size (includes targeted exams where dose is mat ched to clinical indication); or iterative reconstruction. CONTRAST: None DLP: 199.75 mGy.cm COMPARISON: 01/19/2023, 08/09/2023 Lungs and central airway: Severe chronic hyperinflation. Biapical pleural thickening and scarring. Se airam centrilobular emphysema. Subsolid nodule in the LEFT lower lobe continues to slowly increase in size now measuring 9 mm in diameter. Increasing reticular nodular infiltrate in the lingula and LEFT lower lobe since 08/09/2023. Mild bronchiectasis RIGHT middle lobe. Pleura: Normal. No pleural effusion. Heart and pericardium: Normal size heart with no pericardial effusion. Mediastinum and yaneth: There is new soft tissue fullness at the LEFT hilum encasing the LEFT lower lob e bronchovascular structures. No adenopathy identified. Vessels: Moderate atherosclerosis aorta. Dilated pulmonary artery. Chest wall and lower neck: No soft tissue masses. Upper abdomen: Splenic artery calcification. Prior cholecystectomy. Osseous structures: Marked increase in thoracic kyphosis. IMPRESSION: 1. Continued mild progression in size of the subsolid nodule LEFT lower lobe now measuring 9 mm. Low -grade neoplasm is not excluded. Recommend continued imaging follow-up. 2. New reticular nodular opacifications in the lingula and LEFT lower lobe consistent with pneumonia . 3. New bronchovascular thickening LEFT lower lobe beginning at the hilum. This is probably related t o the acute pneumonia now present in the LEFT lower lobe. Cannot evaluate further without IV contrast . Adenopathy would be difficult to exclude without IV contrast. 4. Severe centrilobular emphysema.
== END 2023-11-20 09:37 | disposition home or self-care (01) ==
LOC: RAD 09:38
PROVIDERS: PCP Family Medicine; Visit Provider Internal Medicine Pulmonary Disease
DX: R91.8 Other nonspecific abnormal finding of lung field (principal); J43.2 Centrilobular emphysema
CPT/HCPCS: 71250

== ENCOUNTER 2023-12-15 22:34 | Emergency (ER) | payer MEDICARE, SELFPAY ==
[2023-12-15 22:35] VITALS: BP 133/61; PULSE 69; RESP 16; TEMP 36.7; O2SAT 95; BMI 17.2
--- NOTE | 2023-12-15 23:04 | CTR_ITS ---
PROCEDURE INFORMATION: Exam: CT Abdomen And Pelvis With Contrast Exam date and time: 12/15/2023 11:22 PM Age: 68 years old Clinical indication: Nausea and vomiting; Abdominal pain; Generalized; Prior surgery; Surgery date: 6+ months; Surgery type: Gb; Patient HX: Diffuse abd pain with n/v; Additional info: Abd pain, vomiting TECHNIQUE: Imaging protocol: Computed tomography of the abdomen and pelvis with contrast. Radiation optimization: All CT scans at this facility use at least one of these dose optimization techniques: automated exposure control; mA and/or kV adjustment per patient size (includes targeted exams where dose is matched to clinical indication); or iterative reconstruction. Contrast material: OMNI 350; Contrast volume: 80 ml; Contrast route: INTRAVENOUS (IV); COMPARISON: CT abdomen pelvis w con* [id number] 02/26/2023 4:36 PM RADIATION DOSE METRICS: Total DLP (mGy-cm): 576.49 FINDINGS: Lungs: Severe basilar pulmonary emphysema. Heart: Heart size is within normal limits. There is no pericardial effusion or pericardial thickening. Liver: The liver is normal. No hepatic masses are identified. Gallbladder and bile ducts: The gallbladder is surgically absent. There is no ductal dilatation. Pancreas: The pancreas is atrophic without obvious abnormality. Spleen: Calcified splenic granulomata are noted. The spleen is otherwise normal. Adrenal glands: Suboptimally visualized adrenal glands appear normal. Kidneys and ureters: There is normal enhancement of the kidneys. No renal calcifications are identified. There is no hydronephrosis. Stomach and bowel: Diffuse fluid-filled small bowel with diffuse mural hyperemia and areas of bowel wall thickening. No significant distension. Appendix: A normal appendix is not identified. There is no secondary evidence of acute appendicitis. Intraperitoneal space: No inflammatory changes are identified. There is no free fluid or fluid collection seen. There is no pneumoperitoneum. Vasculature: Atherosclerotic calcifications of the aorta are present. No aneurysm is identified. Lymph nodes: There are no enlarged retroperitoneal or mesenteric lymph nodes. Urinary bladder: The bladder is unremarkable. Reproductive: The uterus is present. Bones/joints: No acute osseous abnormalities are seen. Bilateral L5 spondylolysis with grade 1 anterolisthesis of L5 on S1. Soft tissues: The soft tissues are within normal limits. CT/CT abdomen pelvis w con* [id number] IMPRESSION: Diffuse fluid-filled small bowel with mural hyperemia and areas of mural thickening. No significant dilatation. Findings likely represent a diffuse enteritis.
--- NOTE | 2023-12-15 23:11 | ED_ITS ---
HPI - Nausea/Vomiting/Diarrhea 2 General: Chief complaint: Nausea/Vomiting/Diarrhea Stated complaint: N/V/WEAKNESS Time Seen by Provider: 12/15/23 22:45 History of Present Illness: 68 year old female the history of emphys lizeth. She presents with several episodes of vomiting today. She has generalized abdominal pain. No diarrhea. No fever. No sick contacts. She has not had these symptoms before. No blood in the vomitus. Associated nausea: Yes Associated symtoms: Reports nausea; Denies chest pain Review of Systems 2 Card: Denies: chest pain Resp: Reports: dyspnea and non-productive cough GI: Reports: abdominal pain, nausea and vomiting; Denies: hematochezia PFSH ED 2 PFSH: Medical History HTN (hypertension) Hyperlipidemia COPD (chronic obstructive pulmonary disease) Surgical History Hx of cholecystectomy History of surgery on left wrist History of vocal cord polypectomy Social History Smoking and tobacco/nicotine status: current every day tobacco/nicotine user (1 ppd) cigarettes Packs smoked per day: 1 Years cigarettes smoked: 45 [ Other cigarette details: Started at age 23] Alcohol intake: never Substance/Drug Use: never Lives independently: Yes Household members: significant other Marital status: / Current occupational status: retired Do you think of yourself as: Straight/Heterosexual Current gender identity: Female Physical Exam 2 Const: GENERAL APPEARANCE: cooperative, ill appearing (mildly) and frail appearing NUTRITIONAL APPEARANCE: thin HENMT: COMMON NORMALS: normocephalic, atraumatic and Normal external nose present HEAD & SCALP: normocephalic and atraumatic FACE & SINUS: normal facial exam and face symmetric NOSE: Normal external nose present Eye: COMMON NORMALS: Equal, round and reactive pupils present and EOMs intact bilaterally PUPIL: Yes Equal, round and reactive pupils present Neck/C-Spine: GENERAL: Yes trachea midline Chest: CHEST: Yes Symmetrical chest wall rise Resp: COMMON NORMALS: normal respiratory effort, No retractions, No use of accessory muscles and clear to auscultation bilaterally AUSCULTATION: clear to auscultation bilaterally Cardio: COMMON NORMALS: regular rate and regular rhythm RATE: regular rate RHYTHM: regular rhythm GI: INSPECTION: Yes abdominal distension (mild) PALPATION: Yes Tenderness to palpation present (GI) (diffuse) Extremity: COMMON NORMALS: no pedal edema Neuro: ARLENE COMA SCALE: document GCS findings Arlene coma scale eye opening: Spontaneous [place] coma scale verbal response: Orientated Arlene coma scale motor response: Obey commands [place] coma scale total score: 15 S ENSORY EXAM: Yes extremities (intact) Psych: COMMON NORMALS: speech normal SPEECH: Yes normal speech Skin: COMMON NORMALS: no rashes or lesions noted GENERAL SKIN EXAM: no rashes or lesions noted Course 2 Vital Signs: Vital signs: Vital Signs Temperature 98.1 F 12/15/23 22:35 Pulse Rate 89 12/16/23 02:56 Respiratory Rate 17 12/16/23 02:56 Blood Pressure 121/59 12/16/23 02:56 Pulse Oximetry 100 12/16/23 02:56 Oxygen Delivery Me thod Room Air 12/15/23 22:35 Oxygen Flow Rate 3 12/16/23 01:00 MDM - Nausea/Vomiting/Diarrhea Medical Decision Making Vitals are stable period she received a fluid bolus, anti medics. No more vomiting here. She has passed an oral liquid challenge. White blood cell count 14. Her CRP is only three . other laboratory not remarkable. She has enteritis on CT scan. Symptomatic treatment. Return for worsening symptoms despite treatment. Lab Data 12/15/23 22:49 12/15/23 22:49 Radiology Impressions Abdomen/Pelvis CT 12/15/23 23:04 IMPRESSION: Diffuse fluid-filled small bowel with mural hyperemia and areas of mural thickening. No significant dilatation. Findings likely represent a diffuse enteritis. Laboratory Results WBC 14.70 10^3/uL (3.29-11.43) H 12/15/23 22:49 RBC 4.63 10^6/uL (3.85-5.65) 12/15/23 22:49 Hgb 15.00 g/dL (11.27-16.99) 12/15/23 22:49 Hct 45.8 % (36-47) 12/15/23 22:49 MCV 98.9 fl (85-98) H 12/15/23 22:49 MCH 32.4 pg (27-33) 12/15/23 22:49 MCHC 32.8 g/dL (30-55) 12/15/23 22:49 RDW 12.7 % (12.1-15.1) 12/15/23 22:49 Plt Count 211 10^3/cmm (157-399) 12/15/23 22:49 MPV 9.6 fL (7.4-10.4) 12/15/23 22:49 Neut % (Auto) 92.3 % 12/15/23 22:49 Lymph % (Auto) 3.3 % 12/15/23 22:49 Isabela % (Auto) 2.7 % 12/15/23 22:49 Eos % (Auto) 1.1 % 12/15/23 22:49 Baso % (Auto) 0.3 % 12/15/23 22:49 Neut # (Auto) 13.58 10^3/uL (1.8-7.7) H 12/15/23 22:49 Lymph # (Auto) 0.5 10^3/uL (0.8-4.8) L 12/15/23 22:49 Isabela # (Auto) 0.4 10^3/uL (0.2-0.9) 12/15/23 22:49 Eos # (Auto) 0.2 10^3/uL (0.0-0.8) 12/15/23 22:49 Baso # (Auto) 0.0 10^3/uL (0.0-0.1) 12/15/23 22:49 Nucleated RBC % (auto) 0 % 12/15/23 22:49 Nucleated RBCs # 0.0 /100WBC 12/15/23 22:49 Sodium 137 mmol/L (136-145) 12/15/23 22:49 Potassium 4.0 mmol/L (3.5-5.1) 12/15/23 22:49 Chloride 102 mmol/L (98-107) 12/15/23 22:49 Carbon Dioxide 26 mmol/L (22-29) 12/15/23 22:49 Anion Gap 13.0 (5-19) 12/15/23 22:49 BUN 13 mg/dL (8-23) 12/15/23 22:49 Creatinine 0.7 mg/dL (0.5-0.9) 12/15/23 22:49 GFR Calculation 82.7 mL/min (90-130) L 12/15/23 22:49 Glucose 140 mg/dL (65-115) H 12/15/23 22:49 Calculated Osmolality 286 mOsm/kg (285-295) 12/15/23 22:49 Lactic Acid 1.1 mmol/L (0.5-2.2) 12/15/23 22:49 Calcium 8.6 mg/dL (8.5-10.5) 12/15/23 22:49 Total Bilirubin 0.2 mg/dL (0.15-1.2) 12/15/23 22:49 AST 23 U/L (0-32) 12/15/23 22:49 ALT 13 U/L (0-33) 12/15/23 22:49 Alkaline Phosphatase 36 U/L (35-105) 12/15/23 22:49 C-Reactive Protein 3.0 mg/L (0.0-4.9) 12/15/23 22:49 Total Protein 7.2 g/dL (6.6-8.7) 12/15/23 22:49 Albumin 4.5 g/dL (3.5-5.2) 12/15/23 22:49 Globulin 2.7 g/dL (1.3-4.6) 12/15/23 22:49 Urine Color Yellow (Yellow) 12/16/23 00:55 Urine Appearance Clear (CLEAR) 12/16/23 00:55 Urine pH 5 (5-7) 12/16/23 00:55 Ur Specific [place] 1.010 (1.005-1.030) 12/16/23 00:55 Urine Protein Neg (Negative) 12/16/23 00:55 Urine Glucose (UA) Norm (Normal) 12/16/23 00:55 Urine Ketones 1+ (Negative) H 12/16/23 00:55 Urine Blood 2+ (Negative) H 12/16/23 00:55 Urine Nitrate Negative (Negative) 12/16/23 00:55 Urine Bilirubin Neg (Negative) 12/16/23 00:55 Urine Urobilinogen Neg mg/dL (Negative) 12/16/23 00:55 Ur Leukocyte Esterase Trace (Negative) H 12/16/23 00:55 Urine RBC 0-4 /hpf (0-2) H 12/16/23 00:55 Urine WBC 5-10 /hpf (0-5) H 12/16/23 00:55 Ur Squamous Epith Cells 0-4 /hpf (0-5) H 12/16/23 00:55 Amorphous Sediment Not Reportable 12/16/23 00:55 Urine Bacteria Trace /hpf (NONE) 12/16/23 00:55 All radiology interpretation(s) finalized by discharge Discharge Plan Discharge Patient Disposition: Home Clinical Impression: Dehydration, Enteritis Condition: Stable Prescriptions: New ondansetron 4 mg tablet,disintegrating 4 mg PO Q6H PRN (Reason: nausea and vomiting) Qty: 14 0RF No Action venlafaxine [Effexor XR] 150 mg capsule,extended release 24hr 150 mg PO QPM Qty: 30 4RF promethazine-DM 6.25-15 mg/5 mL syrup 5 ml PO Q6H PRN (Reason: cough) Qty: 160 0RF (DME) oxygen 2L via NC See Rx Instructions .Route .MEDSUPPLY Qty: 1 0RF Rx Instructions: As directed fluticasone furoate-vilanterol [Breo Ellipta] 100-25 mcg/dose blister with device 1 inh inhalation DAILY Qty: 60 6RF tiotropium bromide [Spiriva with HandiHaler] 18 mcg capsule, w/inhalation device 1 cap inhalation DAILY Qty: 60 6RF Rx Instructions: puncture 1 cap using device; one dose = 2 inhalations Prolia 60 mg/mL syringe 60 mg SUBCUT .q 6mo Qty: 1 0RF venlafaxine 75 mg capsule,extended release 24hr See Rx Instructions .ROUTE .COMPLEX Qty: 90 0RF Dose Instruction: TAKE TWO CAPSULES BY MOUTH AT NIGHT AND TAKE ONE CAPSULE DURING THE DAY Rx Instructions: TAKE TWO CAPSULES BY MOUTH AT NIGHT AND TAKE ONE CAPSULE DURING THE DAY ropinirole 0.5 mg tablet 0.5 mg PO .hs Qty: 30 0RF pravastatin 80 mg tablet See Rx Instructions .ROUTE .COMPLEX Qty: 30 0RF Dose Instruction: TAKE ONE TABLET BY MOUTH DAILY WITH SUPPER - NEEDS APPOINTMENT FOR FURTHER REFILLS Rx Instructions: TAKE ONE TABLET BY MOUTH DAILY WITH SUPPER - dexlansoprazole [Dexilant] 60 mg capsule,biphase delayed releas 60 mg PO DAILY Qty: 30 0RF pregabalin [Lyrica] 75 mg capsule 75 mg PO BID Qty: 60 0RF trazodone 50 mg tablet See Rx Instructions .ROUTE .COMPLEX Qty: 30 0RF Dose Instruction: TAKE ONE TABLET BY MOUTH DAILY AT BEDTIME Rx Instructions: TAKE ONE TABLET BY MOUTH DAILY AT BEDTIME Discharge Orders: Discharge ED (Routine); Ordered 12/16/23 Ordered By: Jorden Reynoso Referrals: Gina Altamirano MD [Primary Care Provider] - 1-3 days Patient Instructions: Enteritis (ED), Opioid Safety, Pain Management Activity Restrictions/Additional Instructions: Follow a liquid diet for the next 36 hours. You may begin to add solid food back and at that point if no vomiting. Take nausea medication that you were prescribed every 4 hours while awake for the first 24 hours whether you feel nauseated or not. You may take as needed following. Return for worsening weakness or vomiting despite the above. Return for fever, mental status changes, any other concerning symptoms. See your doctor next week. Coding Level of Care Code ED Glass [employer] for [facility]
[2023-12-15 23:15] LABS: Basophils % 0.3 %; Eosinophils # 0.2 10^3/uL (0.0-0.8); Eosinophils % 1.1 %; Hematocrit 45.8 % (36-47); Lymphocytes # 0.5 10^3/uL (0.8-4.8); Lymphocytes % 3.3 %; Mean Corpuscular HGB Conc 32.8 g/dL (30-55); Mean Corpuscular Hemoglobin 32.4 pg (27-33); Mean Corpuscular Volume 98.9 fl (85-98); Mean Platelet Volume 9.6 fL (7.4-10.4); Monocytes # 0.4 10^3/uL (0.2-0.9); Monocytes % 2.7 %; Neutrophils # 13.58 10^3/uL (1.8-7.7); Neutrophils % 92.3 %; Nucleated Red Blood Cells % 0 %; Platelet Count 211 10^3/cmm (157-399); Red Blood Count 4.63 10^6/uL (3.85-5.65); Red Cell Distribution Width 12.7 % (12.1-15.1)
[2023-12-15] MEDS: iohexol 350 mg/mL 500 mL Btl (per mL) IV (23:25)
[2023-12-15 23:29] LABS: Alanine Aminotransferase 13 U/L (0-33); Albumin Level 4.5 g/dL (3.5-5.2); Alkaline Phosphatase 36 U/L (35-105); Aspartate Amino Transferase 23 U/L (0-32); Blood Urea Nitrogen 13 mg/dL (8-23); Calcium 8.6 mg/dL (8.5-10.5); Carbon Dioxide 26 mmol/L (22-29); Chloride 102 mmol/L (98-107); Creatinine Clr Calc Pharmacy 46.8552; Globulin 2.7 g/dL (1.3-4.6); Glomerular Filtration Rate 82.7 mL/min (90-130); Glucose 140 mg/dL (65-115); Osmolality Calculated 286 mOsm/kg (285-295); Sodium 137 mmol/L (136-145); Total Bilirubin 0.2 mg/dL (0.15-1.2); Total Protein 7.2 g/dL (6.6-8.7)
[2023-12-15 23:30] LABS: Lactic Sepsis W/Reflex 1.1 mmol/L (0.5-2.2)
[2023-12-15] MEDS: ondansetron 2 mg/ML SDV 2 mL 4 MG IVP (23:32)
[2023-12-15] MEDS: sodium chloride 0.9% 1,000 ML 999 ML IV (23:33)
[2023-12-16 00:16] VITALS: BP 138/71; PULSE 73; RESP 21; O2SAT 93
[2023-12-16 00:47] VITALS: RESP 18
[2023-12-16] MEDS: ondansetron 2 mg/ML SDV 2 mL 4 MG IVP (00:47)
[2023-12-16] MEDS: morphine 4 mg/mL SDV 1 mL 2 MG IVP (00:47)
[2023-12-16 01:00] VITALS: BP 136/84; PULSE 93; RESP 18; O2SAT 92
[2023-12-16 01:13] LABS: Add Urine Microscopic? YES; Bilirubin Urine Neg (Negative); Blood Urine 2+ (Negative); Glucose Urine UA Norm (Normal); Ketones Urine 1+ (Negative); Leukocyte Esterase Urine Trace (Negative); Nitrate Urine Negative (Negative); Protein Urine Neg (Negative); Urine Appearance Clear (CLEAR); Urine Color Yellow (Yellow); Urobilinogen Urine Neg (Negative); pH Urine 5 (5-7)
[2023-12-16 01:14] LABS: Bacteria Urine TRACE /hpf; RBC Urine 0-4 /hpf (0-2); Squamous Epithelial Cell Urine 0-4 /hpf (0-5)
[2023-12-16 02:56] VITALS: BP 121/59; PULSE 89; RESP 17; O2SAT 100
== END 2023-12-16 03:00 | disposition home or self-care (01) ==
PROVIDERS: Emergency Provider Emergency Medicine; PCP Family Medicine
DX: K52.9 Noninfective gastroenteritis and colitis, unspecified (principal); E86.0 Dehydration; I10 Essential (primary) hypertension; E78.5 Hyperlipidemia, unspecified; J44.9 Chronic obstructive pulmonary disease, unspecified; F17.210 Nicotine dependence, cigarettes, uncomplicated
CPT/HCPCS: 74177; 80053; 81001; 83605; 85025; 86140; 96361; 96374; 96375; 96376; 99285; J2270; J2405; J7030; Q9967

== ENCOUNTER → 2023-12-19 16:00 | Outpatient (BNVA) | payer MEDICARE, SELFPAY | PROVIDERS: PCP Family Medicine; Visit Provider Family Medicine | DX: E78.5 Hyperlipidemia, unspecified (principal); M81.0 Age-related osteoporosis without current pathological fracture; R49.0 Dysphonia | CPT/HCPCS: 80053; 80061; 84443; 85025 ==

== ENCOUNTER 2024-01-08 11:09 | Outpatient (CLI) | payer MEDICARE, SELFPAY ==
--- NOTE | 2024-01-08 11:30 | PETR_ITS ---
PROCEDURE INFORMATION: Exam: PET/CT Skull Base to Mid-thigh Exam date and time: 01/08/2024 11:47 AM Age: 68 years old Clinical indication: Abnormal findings; 1. Continued mild progression in size of the subsolid nodule left lower lobe now measuring 9 mm. Low-grade neoplasm is not excluded. Recommend continued imaging follow-up. 2. New reticular nodular opacifications in the lingula and left lower lobe consistent with. Pneumonia. 3. New bronchovascular thickening left lower lobe beginning at the hilum. This is probably related. To the acute pneumonia now present in the left lower lobe. Cannot evaluate further without iv. Contrast. Adenopathy would be difficult to exclude without iv contrast. 4. Severe centrilobular emphysema. ; Additional info: R91.8 - other nonspecific abnormal finding of lung field LABS AND CLINICAL REPORTS: Glucose: 97 mg/dl Treatment strategy for malignancy (PET staging): Initial Staging (PI) TECHNIQUE: Imaging protocol: Following at least four-hour fasting and following the injection of radiopharmaceutical, low dose CT images were obtained. Then, PET images were obtained. Attenuation corrected images were constructed using the CT scan. Fused images of PET and CT were reviewed. The standardized uptake values (SUV) reported below are maximum values within a region of interest, expressed in gm/ml. Exam includes orbital meatal line to mid-thigh. Radiopharmaceutical: 11.7 mCi F-18 FDG (Fluorodeoxyglucose), IV. Time of imaging post radiopharmaceutical administration: 1 hour Injection site: Right antecubital COMPARISON: CT chest 11/20/2023, CT chest 08/09/2023, CT abdomen pelvis w con* [id number] 12/15/2023 11:22 PM FINDINGS: Brain: Visualized brain has normal physiologic uptake. Pharynx: No abnormal uptake. Larynx: No abnormal uptake. Lungs, pleura and trachea: A predominantly solid radiotracer avid pleural based nodular density in the posterior left lower lobe measuring approximately 9 mm on series 3, image 72 is noted, SUV max 3.4. This is similar in size and morphology compared with 11/20/2023. Left upper lobe calcified granulomas are present. There is moderate non radiotracer avid biapical pleural scarring. Similar diffuse centrilobular emphysematous changes are present. Non radiotracer avid streaky density in the lingula is compatible with scarring. Small similar, 2-3 mm foci of solid nodularity in the region of the major fissure anteriorly on the right on series 3, image 109 and posteriorly on series 3, image 79 as well as in the lateral left lower lobe on the same image are noted without elevated uptake. Previously noted regions of patchy consolidation in the anterior left lower lobe have nearly completely resolved and are not radiotracer avid. Heart: Normal physiologic uptake. Mediastinal space: No abnormal uptake. Liver: No abnormal uptake. Gallbladder and bile ducts: No abnormal uptake. Cholecystectomy clips are present. Pancreas: No abnormal uptake. Spleen: No abnormal uptake. Calcified granulomas in the spleen are present. Adrenal glands: No abnormal uptake. Kidneys and ureters: Normal physiologic uptake. Stomach and bowel: No abnormal uptake. There is physiologic appearing uptake in the stomach and bowel. Vasculature: No abnormal uptake. Diffuse atherosclerotic calcifications are present. Lymph nodes: No abnormal uptake. No lymphadenopathy in the head, neck, chest, abdomen, pelvis, and extremities. Small benign-appearing non radiotracer avid left hilar lymph nodes are present. Skeleton: No abnormal uptake in the visualized axial and appendicular skeleton. The bones appear demineralized. Degenerative changes of the spine are present. There are bilateral L5 pars defects. Soft tissues: No abnormal uptake in the visualized head, neck, chest, abdomen, pelvis, and extremities. METRICS: Mediastinal blood pool: SUV max 1.7 PET/PET [facility] INITIAL [id number] IMPRESSION: 1. A sub solid nodule in the posterior left lower lobe demonstrates mildly elevated uptake (SUV max 3.4). While malignancy cannot be excluded, atypical infectious involvement is an additional consideration. 2. Small similar bilateral pleural based pulmonary nodules are noted without elevated uptake. 3. Centrilobular emphysematous changes. 4. Old granulomatous changes. 5. Additional nonurgent findings as detailed above.
== END 2024-01-08 11:10 | disposition home or self-care (01) ==
LOC: RAD 11:10
PROVIDERS: PCP Family Medicine; Visit Provider Internal Medicine Pulmonary Disease
DX: R91.8 Other nonspecific abnormal finding of lung field (principal); J43.2 Centrilobular emphysema
CPT/HCPCS: 78815; A9552

== ENCOUNTER 2024-01-17 10:23 | Oncology outpatient (recurring) (ONCR) | payer MEDICARE, SELFPAY ==
--- NOTE | 2024-01-17 11:28 | N.ONRAD NP_ITS ---
Radiation Oncology New Patient Visit Patient: Mary Peterson MR#: [id number] : 1955 Age: 68 Sex: Female Dictated by: Dr. Alesha Nails Date of Service: 01/17/2024 Referring Physician(s) : Dr. Connors Diagnosis: Presumed lung cancer with a positive PET scan and a solitary pulmonary nodule Radiotherapy to date: Summary > No prior radiation therapy. Chief Complaint / History of Present Illness: Patient has had CT scans and most recent PET scan which showed avid uptake in a mass in the left lower lung. Secondary to her severe COPD she is not a candidate for any type of biopsy. She is here today to discuss the possibility of treatment to this area and the rationale for not having a biopsy. Current Medications: denosumab (Prolia) 60 mg SUBCUT .q 6mo dexlansoprazole (Dexilant) 60 mg PO DAILY fluticasone furoate-vilanterol 100-25 mcg/dose (Breo Ellipta) 1 inh inhalation DAILY [oxygen 2L via NC As directed] pravastatin TAKE ONE TABLET BY MOUTH DAILY WITH SUPPER - NEEDS APPOINTMENT FOR FURTHER REFILLS pregabalin (Lyrica) 75 mg PO BID promethazine-DM 6.25-15 mg/5 mL 5 mL PO Q6H PRN ropinirole 0.5 mg PO .hs tiotropium bromide (Spiriva with HandiHaler) 1 cap inhalation DAILY trazodone TAKE ONE TABLET BY MOUTH DAILY AT BEDTIME venlafaxine ER (Effexor XR) 150 mg PO QPM venlafaxine ER TAKE TWO CAPSULES BY MOUTH AT NIGHT AND TAKE ONE CAPSULE DURING THE DAY Allergies: No Known Allergies Medical History: No history of collagen vascular disease. No previous radiation therapy. HTN (hypertension) Hyperlipidemia COPD (chronic obstructive pulmonary disease) Surgical History: Hx of cholecystectomy History of surgery on left wrist History of vocal cord polypectomy Family History: Her father of lung cancer, she had 2 husbands , she is also had 2 brothers with cancer. Social History: Smoking and tobacco/nicotine status: current every day tobacco/nicotine user (1 ppd) cigarettes Packs smoked per day: 1 Years cigarettes smoked: 45 [ Other cigarette details: Started at age 23] Alcohol intake: never Substance/Drug Use: never Lives independently: Yes Household members: significant other Marital status: / Current occupational status: retired Do you think of yourself as: Straight/Heterosexual Current gender identity: Female Current Complaints / Review of Systems: . Vital Signs: Performed on 01/17/2024 10:32 AM BMI - 17.577 kg/m2 (low), Height - 64 in, Weight - 102.4 lbs, Temperature - 97.2 f, Pulse - 69 /min, Respiration - 17 /min, O2 Sat - 94 % (low), Pain - 8, Fatigue - 4 and BP - 125/ 84 mm(hg). Physical Exam: General patient is in no apparent distress she is alone today HEENT: Normocephalic atraumatic. Pupils are equal, sclera clear, extraocular muscles intact Pulmonary: Respiratory rate is regular and nonlabored. Pulse ox was only 95% on room air Cardiovascular: Regular rate and rhythm Abdomen: Patient is quite cachectic with minimal adipose tissue Extremities: No significant edema or lymphedema was noted Neurological: Alert and orient x 3. Gait and speech within normal limits Psych: Affect appropriate for current situation Performance Status: 68 Pathology: Lab: Imaging: See HPI Impression: Presumed lung cancer with a solitary pulmonary nodule and avid uptake on PET Plan: I reviewed with the patient her CT and PET findings. We talked about how the increased uptake is consistent with increased activity and growth. We reviewed her pulmonary status and how the rn surgery icu was not comfortable doing a biopsy secondary to the risk of pneumothorax. She verbalized understanding of all the above. We talked about how we could do the radiation treatments which would take about a week to get all of the planning and the treatment actually done. We talked about the risks and side effects of the treatment both acute and long-term. At this point she said she like to wait for 1 more CAT scan before going through any treatment. Will go ahead and get her set up for a CT scan in April which will be 3 months from her PET scan. She will then return for results and will continue discussion at that point. Signed by: 01/17/2024 11:26:46 AM <<Signature on File>> Time spent with patient:35 CPT Code: CPT Code:
== END 2024-02-03 23:59 | disposition home or self-care (01) ==
PROVIDERS: PCP Family Medicine; Visit Provider Radiology Radiation Oncology
DX: R91.1 Solitary pulmonary nodule (principal); J44.9 Chronic obstructive pulmonary disease, unspecified
CPT/HCPCS: 99205

== ENCOUNTER → 2024-02-12 12:16 | Outpatient (BNVA) | payer MEDICARE, SELFPAY | PROVIDERS: PCP Family Medicine; Visit Provider Nurse Practitioner Family | DX: M81.0 Age-related osteoporosis without current pathological fracture (principal) | CPT/HCPCS: 80048 ==

== ENCOUNTER 2024-04-23 13:47 | Oncology outpatient (recurring) (ONCR) | payer MEDICARE, SELFPAY ==
--- NOTE | 2024-04-17 12:00 | CT_ITS ---
WS: [id number] CT chest wo con [id number] HISTORY: R91.8 - Other nonspecific abnormal finding of lung field TECHNIQUE: Axial imaging performed through the thorax. Coronal and sagittal reformats are submitted. All CT scans at [facility] use at least one of these dose optimization techniques: automated exposure control; mA and/or kV adjustment per patient size (includes targeted exams where dose is mat ched to clinical indication); or iterative reconstruction. CONTRAST: Omnipaque 350; 100 mL IV. DLP: 262.14 mGy.cm COMPARISON: 11/20/2023, 08/09/2023, PET/CT 01/08/2024 Lungs and central airway: Severe chronic hyperinflation. Previously described subsolid nodule that wa s positive by PET/CT is reidentified and increased slightly in size now measuring 10 x 10 mm. Prior m easurement at this location was 8 x 10 mm. Visually the nodule appears larger also. Biapical pleural thickening. Granuloma LEFT upper lobe. Mild bilateral interstitial thickening in the anterior lungs. There are a few scattered nodules which are very small and stable. No additional mass or increasing n odule. The tree-in-bud airspace disease and consolidation previously described in the LEFT lower lobe has significantly improved. Minimal reticular nodulation identified remaining. LEFT lower lobe nodul e measuring 4 mm at the site of the prior opacification was present on prior imaging studies. Pleura: Normal. No pleural effusion. Heart and pericardium: Normal size heart with no pericardial effusion. Mediastinum and yaneth: Hilar regions are very difficult to evaluate for lymphadenopathy without IV con trast. Vessels: Moderate atherosclerosis aorta. Dilated pulmonary artery. Chest wall and lower neck: No soft tissue masses. Upper abdomen: Suprarenal aortic calcifications. Splenic artery calcifications. Osseous structures: Increase in thoracic kyphosis. CT/CT chest wo con [id number] IMPRESSION: 1. Severe emphysema. 2. Subsolid nodule is reidentified posterior LEFT lower lobe. Subsolid nodule demonstrating mild increased uptake on the recent PET/CT from 01/08/2024. Nodule appears to have increased very slightly in size. Nodule measures 10 x 10 mm. Vi sually the the nodule appears larger also. This remains suspicious for neoplasm . 3. Improved aeration in the LEFT lower lobe. 4. There are additional scattered pulmonary nodules which are not increasing i n size. 5. Lymphadenopathy would be difficult to exclude without IV contrast. 6. Pulmonary hypertension.
== END 2024-05-05 23:59 | disposition home or self-care (01) ==
PROVIDERS: PCP Family Medicine; Visit Provider Radiology Radiation Oncology
DX: Z53.9 Procedure and treatment not carried out, unspecified reason
CPT/HCPCS: 71250; 99205

== ENCOUNTER → 2024-05-05 14:29 | Outpatient (BNVA) | payer MEDICARE, SELFPAY | PROVIDERS: PCP Family Medicine; Visit Provider Nurse Practitioner Family | DX: R30.0 Dysuria (principal); E78.5 Hyperlipidemia, unspecified; R53.83 Other fatigue; E55.9 Vitamin D deficiency, unspecified | CPT/HCPCS: 80053; 80061; 81003; 82306; 82607; 83735; 84443; 85025 ==

== ENCOUNTER 2024-06-03 13:57 | Oncology outpatient (recurring) (ONCR) | payer MEDICARE, SELFPAY | END 2024-06-03 23:59 | disposition home or self-care (01) | PROVIDERS: PCP Family Medicine; Visit Provider Radiology Radiation Oncology | DX: Z51.0 Encounter for antineoplastic radiation therapy (principal); R91.8 Other nonspecific abnormal finding of lung field; J44.9 Chronic obstructive pulmonary disease, unspecified; F17.210 Nicotine dependence, cigarettes, uncomplicated | CPT/HCPCS: 77263; 77300; 77301; 77334; 77338; 77373; 77470 ==

== ENCOUNTER 2024-06-05 13:53 | Oncology outpatient (recurring) (ONCR) | payer MEDICARE, SELFPAY | END 2024-06-05 23:59 | disposition home or self-care (01) | LOC: ONCMED 13:54 | PROVIDERS: PCP Family Medicine; Visit Provider Radiology Radiation Oncology | DX: Z53.9 Procedure and treatment not carried out, unspecified reason (principal); R91.8 Other nonspecific abnormal finding of lung field; J43.8 Other emphysema; I27.20 Pulmonary hypertension, unspecified; R91.1 Solitary pulmonary nodule; J44.9 Chronic obstructive pulmonary disease, unspecified | CPT/HCPCS: 77373 ==

== ENCOUNTER 2024-06-12 13:47 | Oncology outpatient (recurring) (ONCR) | payer MEDICARE, SELFPAY ==
--- NOTE | 2024-06-12 15:34 | N.ONRD TS_ITS ---
Radiation Oncology Treatment Summary/ OTV Patient: Mary Peterson MR#: [id number] : 1955 Age: 68 Sex: Female Dictated by: Dr. Guillermo Carroll Date of Service: 06/12/2024 Referring Physician(s) : Diagnosis: C34.32 - Malignant neoplasm of lower lobe, left bronchus or lung, Diagnosed 04/24/2024 (Active) Radiotherapy to Date: Course: L lung, Treatment Site: Lt Lung SBRT, Ref. ID: [id number], Energy: 6X, Dose/Fx (cGy): 1,200, #Fx: 4 / 4, Dose Correction (cGy): 0, Total Dose Delivered (cGy): 4,800, Start Date: 06/03/2024, End Date: 06/12/2024, Elapsed Days: 9 Vital Signs: Performed on 06/12/2024 2:35 PM BMI - 16.684 kg/m2 (low), Height - 64 in, Weight - 97.2 lbs, Temperature - 97.5 f, Pulse - 66 /min, Respiration - 18 /min, O2 Sat - 94 % (low), Pain - 10, Fatigue - 0 and BP - 138/ 58 mm(hg)(/low). Clinical Summary: The patient tolerated RT well. She notes chronic back and leg pain. Two week history of recent Has treated with Tylenol. She attributes this to sinusitis and allergies. Breathing is better and she is using less O2 supplement. She lives with boyfriend. She continues to smoke a cka day. She is busy and cares for her 95 year old aunt. Plan: End of treatment today. Follow up in one month. Discussed critical need to stop smoking. Signed by: Dr. Guillermo Carroll>06/12/2024 3:32:34 PM <<Signature on File>>
== END 2024-07-05 23:59 | disposition home or self-care (01) ==
PROVIDERS: PCP Family Medicine; Visit Provider Radiology Radiation Oncology
DX: Z51.0 Encounter for antineoplastic radiation therapy (principal); C34.32 Malignant neoplasm of lower lobe, left bronchus or lung; M54.9 Dorsalgia, unspecified; G89.29 Other chronic pain; F17.210 Nicotine dependence, cigarettes, uncomplicated
CPT/HCPCS: 77336; 77373; 99024

== ENCOUNTER 2024-07-17 10:00 | Oncology outpatient (recurring) (ONCR) | payer MEDICARE, SELFPAY ==
--- NOTE | 2024-07-17 15:22 | ONCRAD EPV_ITS ---
Radiation Oncology Established Patient Visit Patient: Mary Peterson [id number] : 1955 Age: 69 Sex: Female Dictated by: Dr. Alesha Nails Date of Service: 07/17/2024 Referring Physician(s) : Diagnosis: C34.32 - Malignant neoplasm of lower lobe, left bronchus or lung, Diagnosed 04/24/2024 (Active) Radiotherapy to Date: Course: L lung, Treatment Site: Lt Lung SBRT, Ref. ID: [id number], Energy: 6X, Dose/Fx (cGy): 1,200, #Fx: 4 / 4, Dose Correction (cGy): 0, Total Dose Delivered (cGy): 4,800, Start Date: 06/03/2024, End Date: 06/12/2024, Elapsed Days: 9 Current History: Patient returns today for her first month check after undergoing SBRT for a lung cancer in the left lower lobe. Subjectively she continues to have most of her normal symptoms which she is has a productive cough usually in the morning. She has had aches and pains that are migratory. She does see pain management for most of her aches and pains. Respiratory status has remained stable. Current Medications: Allergies: Current Complaints / Review of Systems: . Vital Signs: BMI - 16.719 kg/m2 (low), Height - 64 in, Weight - 97.4 lbs, Temperature - 97.3 f, Pulse - 66 /min, Respiration - 18 /min, O2 Sat - 99 %, Pain - 7, Fatigue - 0 and BP - 124/ 66 mm(hg). Physical Exam: General: Alert and oriented x 3. No acute distress. HEENT: Normocephalic atraumatic. Pupils are equal, sclera clear, extraocular muscles intact. LUNGS: Respiratory rate is regular nonlabored. HEART: Regular rate and rhythm Extremity no edema or lymphedema is noted in the upper or lower extremities. NEUROLOGIC alert and orient x 3. Gait and speech are intact psych: Affect appropriate for current situation. Performance Status: 80 Lab: None pending. Pathology: Primary, c34.32 - malignant neoplasm of lower lobe, left bronchus or lung, Diagnosed 04/24/2024 (active) . Imaging: See HPI Impression: lung cancer status post SBRT Plan: We talked about the previous imaging she has had. At this point we will get a PET scan in another 8 weeks. After that we can proceed with CT scans every 3 to 6 months. She verbalized understanding. Will go ahead and put the order through. She will call if any problems should arise in the interim. Signed by: 07/17/2024 3:23:20 PM 20 <<Signature on File>> Time spent with [id number]: CPT Code: CPT Code:
== END 2024-08-05 23:59 | disposition home or self-care (01) ==
LOC: ONCMED 10:01
PROVIDERS: PCP Family Medicine; Visit Provider Radiology Radiation Oncology
DX: C34.32 Malignant neoplasm of lower lobe, left bronchus or lung (principal); Z92.3 Personal history of irradiation
CPT/HCPCS: 99024

== ENCOUNTER 2024-08-22 15:26 | Oncology outpatient (recurring) (ONCR) | payer MEDICARE, SELFPAY ==
--- NOTE | 2024-08-22 15:28 | PETR_ITS ---
PROCEDURE INFORMATION: Exam: PET/CT Skull Base to Mid-thigh Exam date and time: 08/22/2024 4:32 PM Age: 69 years old Clinical indication: Condition or disease; Primary cancer: Lung cancer; Additional info: Lung CA sp sbrt LABS AND CLINICAL REPORTS: Glucose: 123 mg/dl Treatment strategy for malignancy (PET staging): Restaging (PS) TECHNIQUE: Imaging protocol: Following at least four-hour fasting and following the injection of radiopharmaceutical, low dose CT images were obtained. Then, PET images were obtained. Attenuation corrected images were constructed using the CT scan. Fused images of PET and CT were reviewed. The standardized uptake values (SUV) reported below are maximum values within a region of interest, expressed in gm/ml. Exam includes orbital meatal line to mid-thigh. SUV normalization method: BodyWeight Radiopharmaceutical: 12.43 mCi F-18 FDG (Fluorodeoxyglucose), IV. Time of imaging post radiopharmaceutical administration: 47 minutes Injection site: RIGHT AC COMPARISON: 1. PT PET skull to thigh INIT [id number] 01/08/2024 11:[address] chest wo con [id number] 04/17/2024 12:12 PM FINDINGS: Brain: Visualized brain has normal physiologic uptake. Pharynx: No abnormal uptake. Larynx: No abnormal uptake. Lungs, pleura and trachea: Advanced emphysematous change and biapical pleural-parenchymal scarring with additional areas of scarring at the right middle lobe and lingula. Decreased size and FDG uptake of subpleural posterior left lower lobe superior segment nodule now with cavitary appearance measuring 10 x 7 mm on axial image 241 with SUV max 1.3, previously 11 x 10 mm with SUV max 3.4. Left upper lobe calcified granuloma. Heart: Normal physiologic uptake. Coronary arteries: Heavy coronary artery calcification. Mediastinal space: No abnormal uptake. Liver: No abnormal uptake. Gallbladder and biliary ducts: No abnormal uptake. Prior cholecystectomy. Pancreas: No abnormal uptake. Spleen: No abnormal uptake. Calcified granulomata. Adrenal glands: No abnormal uptake. Kidneys and ureters: Normal physiologic uptake. Stomach and bowel: No abnormal uptake. Vasculature: No abnormal uptake. Heavy systemic atherosclerotic calcification without aortic aneurysm. Stable mild pulmonary arterial dilatation. Lymph nodes: No abnormal uptake. No lymphadenopathy in the head, neck, chest, abdomen, pelvis, and extremities. Skeleton: Moderate degenerative change at L5-S1 with grade 1 anterolisthesis in the setting of bilateral L5 pars interarticularis defects. Otherwise mild degenerative change along the axial skeletal system. Soft tissues: Linear FDG uptake along [id number]-[id number]-right neck and intercostal musculature as well as xonr-[id number]-lgha-right back muscles, bilateral forearm and hand musculature without underlying CT abnormality in keeping with physiologic activation and/or strain. METRICS: Mediastinal blood pool: SUV mean 1.4 Liver uptake: SUV mean 1.6 PET/PET skull to thigh SUBS [id number] IMPRESSION: 1. Complete metabolic response of mildly decreased size left lower lobe nodule now with cavitary appearance. 2. Additional chronic and incidental findings as above.
== END 2024-09-05 23:59 | disposition home or self-care (01) ==
PROVIDERS: PCP Family Medicine; Visit Provider Radiology Radiation Oncology
DX: C34.32 Malignant neoplasm of lower lobe, left bronchus or lung (principal); R91.8 Other nonspecific abnormal finding of lung field
CPT/HCPCS: 78815; A9552

== ENCOUNTER → 2024-09-08 14:02 | Outpatient (BNVA) | payer MEDICARE, SELFPAY | PROVIDERS: PCP Family Medicine; Visit Provider Nurse Practitioner Family | DX: J98.8 Other specified respiratory disorders (principal); R11.0 Nausea | CPT/HCPCS: 87400 ==

== ENCOUNTER → 2024-10-22 14:13 | Outpatient (BNVA) | payer MEDICARE, SELFPAY | PROVIDERS: PCP Nurse Practitioner Family; Visit Provider Nurse Practitioner Family | DX: J43.2 Centrilobular emphysema (principal); E78.5 Hyperlipidemia, unspecified; R73.9 Hyperglycemia, unspecified; R09.89 Other specified symptoms and signs involving the circulatory and respiratory systems; M81.0 Age-related osteoporosis without current pathological fracture; Z79.899 Other long term (current) drug therapy | CPT/HCPCS: 80053; 80061; 82306; 82607; 83036; 84443; 85025 ==

== ENCOUNTER → 2025-02-20 12:47 | Outpatient (BNVA) | payer MEDICARE, SELFPAY | PROVIDERS: PCP Nurse Practitioner Family; Visit Provider Nurse Practitioner Family | DX: J43.2 Centrilobular emphysema (principal); J94.8 Other specified pleural conditions; I31.8 Other specified diseases of pericardium; M47.814 Spondylosis without myelopathy or radiculopathy, thoracic region | CPT/HCPCS: 71046 ==

== ENCOUNTER → 2025-03-13 11:07 | Outpatient (BNVA) | payer MEDICARE, SELFPAY | PROVIDERS: PCP Nurse Practitioner Family; Visit Provider Nurse Practitioner Family | DX: M81.0 Age-related osteoporosis without current pathological fracture (principal); E78.5 Hyperlipidemia, unspecified; R73.9 Hyperglycemia, unspecified; J43.2 Centrilobular emphysema; J98.4 Other disorders of lung; J84.170 Interstitial lung disease with progressive fibrotic phenotype in diseases classified elsewhere; R91.8 Other nonspecific abnormal finding of lung field; M47.814 Spondylosis without myelopathy or radiculopathy, thoracic region | CPT/HCPCS: 71046; 80053; 80061; 82306; 82607; 83036; 83735; 85025 ==

== ENCOUNTER 2025-04-15 08:17 | Outpatient (CLI) | payer MEDICARE, SELFPAY ==
--- NOTE | 2025-04-15 08:22 | FL_ITS ---
WS: [id number] Barium swallow and esophagram, 04/15/2025 Clinical Data: DYSPHAGIA Comparison: Upper GI series, 12/20/2018 Fluoroscopy time: 1min [id number] # of spot films: 44 Findings: The patient swallowed the thick and thin barium, and it flowed through the hypopharynx without hesitation. No stricture, mass, polyp or erosion was seen. No aspiration or penetration occurred. The barium entered the esophagus and there was normal motility throughout. No hiatal hernia, reflux, stricture, polyp, mass, erosion or ulcer was noted. The barium passed normally into the stomach. FL/FL barium swallow [id number] Impression: Normal esophagram.
== END 2025-04-15 08:18 | disposition home or self-care (01) ==
LOC: RAD 08:17
PROVIDERS: PCP Nurse Practitioner Family; Visit Provider Nurse Practitioner Family
DX: R13.10 Dysphagia, unspecified (principal)
CPT/HCPCS: 74220

== ENCOUNTER 2025-04-22 08:51 | Outpatient (CLI) | payer MEDICARE, SELFPAY ==
--- NOTE | 2025-04-22 16:09 | FL_ITS ---
FL barium swallow modifd [id number] REASON FOR EXAM: Other dysphagia FLUOROSCOPY TIME: 3min [id number] # OF SPOT FILMS: None TECHNIQUE: Examination was supervised by the speech therapy department. Patient was examined in the sitting upright lateral projection. The swallowing of barium of varying consistencies was monitored fluoroscopically and video recorded. FINDINGS: There was mild penetration of liquids into the laryngeal vestibule without aspiration. The remainder of the cervical esophagus was unremarkable. There is no impedance to the transition of the barium tablet through the esophagus and into the stomach. IMPRESSION: Detailed report of the swallowing will be rendered by the speech therapy department. Laryngeal vestibule penetration. No esophageal obstruction. MTDD
== END 2025-04-22 08:52 | disposition home or self-care (01) ==
LOC: RAD 08:55
PROVIDERS: PCP Nurse Practitioner Family; Visit Provider Nurse Practitioner Family
DX: R13.10 Dysphagia, unspecified (principal)
CPT/HCPCS: 74230; 92611

== ENCOUNTER 2025-05-04 09:34 | Inpatient (IN) | payer MEDICARE, SELFPAY ==
[2025-05-04] VITALS (22 sets, daily range): BP systolic 93–127; BP diastolic 42–66; PULSE 64–77; RESP 14–26; TEMP 36.8; O2SAT 5–99; BMI 16.6; BMI 15.0
--- OUTSIDE RECORDS SUMMARY | 2025-05-04 09:41 | XMS_ITS | Patient Health Record ---
Author Organization [facility] Address [address] [place] [address] Care Team Providers Care Supervisor [employer] Name Role Phone Gina Altamirano Primary Care Provider UnavailMagda Nuno Unavailable [phone] Migration, Provider Unavailable Unavailable Luis Enrique Mcrae Unavailable [phone] Allergies Allergen (clinical drug ingredient) Drug/Non Drug Allergy documented on EMR Reaction Allergy Type Onset Date Status No Known Drug Allergy Unknown Drug Allergy Active Results Component Value Reference Range Flag Notes Urine Drug Screen (cup read) - 54522 Reviewed date:02/12/2025 11:18:24 AM Interpretation: Performing Lab: Notes/Report: BZO + OPI + OXY + Urine Confirmation Panel (in strument) - [id number] Reviewed date:02/18/2025 03:07:44 PM Interpretation: Performing Lab: Notes/Report: 6-Acetylmorphine 0 <6 ng/mL N This elizabeth t was developed and its performance characteristics determined by [facility]. It has not been cleared or approved by the U.S. Food and Drug Administration. 7-Aminoclonazepam 0 <60 ng/mL N This te st was developed and its performance characteristics determined by [facility]. It has not been cleared or approved by the U.S. Food and Drug Administration. Alprazolam 0 <60 ng/mL N This test was developed and its performance characteristics determined by [facility]. It has not been cleared or approved by the U.S. Food and Drug Administration. Amphetamine 0 <75 ng/mL N This test was developed and its performance characteristics determined by [facility]. It has not been cleared or approved by the U.S. Food and Drug Administration. aOH-Alprazolam 0 <60 ng/mL N This test was developed and its performance characteristics determined by [facility]. It has not been cleared or approved by the U.S. Food and Drug Administration. Buprenorphine 0.0 <7.5 ng/mL N This test w as developed and its performance characteristics determined by [facility]. It has not been cleared or approved by the U.S. Food and Drug Administration. Norbuprenorphine 0.0 <37.5 ng/mL N This te st was developed and its performance characteristics determined by [facility]. It has not been cleared or approved by the U.S. Food and Drug Administration. Carisoprodol 0 <75 ng/mL N This test wa s developed and its performance characteristics determined by [facility]. It has not been cleared or approved by the U.S. Food and Drug Administration. Codeine 0 <75 ng/mL N This test was developed and its performance characteristics determined by [facility]. It has not been cleared or approved by the U.S. Food and Drug Administration. EDDP 0 <75 ng/mL N This test was developed and its performance characteristics determined by [facility]. It has not been cleared or approved by the U.S. Food and Drug Administration. Fentanyl 0 <6 ng/mL N This test was developed and its performance characteristics determined by [facility]. It has not been cleared or approved by the U.S. Food and Drug Administration. Hydrocodone >5000 <75 ng/mL > This test was developed and its performance characteristics determined by [facility]. It has not been cleared or approved by the U.S. Food and Drug Administration. Hydromorphone 183 <75 ng/mL H This test w as developed and its performance characteristics determined by [facility]. It has not been cleared or approved by the U.S. Food and Drug Administration. Lorazepam 0 <60 ng/mL N This test was developed and its performance characteristics determined by [facility]. It has not been cleared or approved by the U.S. Food and Drug Administration. MDMA 0 <75 ng/mL N This test was developed and its performance characteristics determined by [facility]. It has not been cleared or approved by the U.S. Food and Drug Administration. Meperidine 0.0 <37.5 ng/mL N This test was developed and its performance characteristics determined by [facility]. It has not been cleared or approved by the U.S. Food and Drug Administration. Meprobamate 0 <75 ng/mL N This test was developed and its performance characteristics determined by [facility]. It has not been cleared or approved by the U.S. Food and Drug Administration. Methamphetamine 0 <75 ng/mL N This test was developed and its performance characteristics determined by [facility]. It has not been cleared or approved by the U.S. Food and Drug Administration. Methadone 0 <75 ng/mL N This test was developed and its performance characteristics determined by [facility]. It has not been cleared or approved by the U.S. Food and Drug Administration. Morphine 0 <75 ng/mL N This test was developed and its performance characteristics determined by [facility]. It has not been cleared or approved by the U.S. Food and Drug Administration. Nordiazepam 0 <60 ng/mL N This test was developed and its performance characteristics determined by [facility]. It has not been cleared or approved by the U.S. Food and Drug Administration. Norfentanyl 0 <6 ng/mL N This test was developed and its performance characteristics determined by [facility]. It has not been cleared or approved by the U.S. Food and Drug Administration. Normeperidine 0.0 <37.5 ng/mL N This test was developed and its performance characteristics determined by [facility]. It has not been cleared or approved by the U.S. Food and Drug Administration. O-desmethyltramadol 0 <75 ng/mL N This test was developed and its performance characteristics determined by [facility]. It has not been cleared or approved by the U.S. Food and Drug Administration. Oxazepam 0 <60 ng/mL N This test was developed and its performance characteristics determined by [facility]. It has not been cleared or approved by the U.S. Food and Drug Administration. Oxycodone 0.0 <37.5 ng/mL N This test was developed and its performance characteristics determined by [facility]. It has not been cleared or approved by the U.S. Food and Drug Administration. Oxymorphone 0 <75 ng/mL N This test was developed and its performance characteristics determined by [facility]. It has not been cleared or approved by the U.S. Food and Drug Administration. Phencyclidine 0.0 <7.5 ng/mL N This test w as developed and its performance characteristics determined by [facility]. It has not been cleared or approved by the U.S. Food and Drug Administration. Tapentadol 0.0 <37.5 ng/mL N This test was developed and its performance characteristics determined by [facility]. It has not been cleared or approved by the U.S. Food and Drug Administration. Temazepam 0 <60 ng/mL N This test was developed and its performance characteristics determined by [facility]. It has not been cleared or approved by the U.S. Food and Drug Administration. Tramadol 0 <75 ng/mL N This test was developed and its performance characteristics determined by [facility]. It has not been cleared or approved by the U.S. Food and Drug Administration. Norhydrocodone >5000 <75 ng/mL > This test was developed and its performance characteristics determined by [facility]. It has not been cleared or approved by the U.S. Food and Drug Administration. Noroxycodone 0 <38 ng/mL N This test wa s developed and its performance characteristics determined by [facility]. It has not been cleared or approved by the U.S. Food and Drug Administration. Pregabalin 7336 <225 ng/mL H This test was developed and its performance characteristics determined by [facility]. It has not been cleared or approved by the U.S. Food and Drug Administration. Gabapentin 0 <225 ng/mL N This test was developed and its performance characteristics determined by [facility]. It has not been cleared or approved by the U.S. Food and Drug Administration. Benzoylecgonine 0.0 <37.5 ng/mL N This elizabeth t was developed and its performance characteristics determined by [facility]. It has not been cleared or approved by the U.S. Food and Drug Administration. 4-Hydroxy Xylazine 0 <25 ng/mL N This t est was developed and its performance characteristics determined by [facility]. It has not been cleared or approved by the U.S. Food and Drug Administration. Urine Drug Screen (cup read) - [id number] Reviewed date:04/16/2025 10:57:15 AM Interpretation: Performing Lab: Notes/Report: OPI + OXY + zzzUrine Drug Screen (confir mation by instrument) - [id number] Reviewed date:07/08/2024 03:27:46 PM Interpretation: Performing Lab: Notes/Report: Urine Drug Screen (cup read) - [id number] Reviewed date:08/21/2024 12:12:18 PM Interpretation: Performing Lab: Notes/Report: OXY + Tox Results Reviewed date:10/14/2024 02:22:05 PM Interpretation: Performing Lab: Notes/Report: Tox Results Reviewed date:02/18/2025 03:25:10 PM Interpretation: Performing Lab: Notes/Report: Urine Confirmation Panel (in strument) - [id number] Reviewed date:10/14/2024 01:51:34 PM Interpretation: Performing Lab: Notes/Report: 6-Acetylmorphine 0 <6 ng/mL N This elizabeth t was developed and its performance characteristics determined by [facility]. It has not been cleared or approved by the U.S. Food and Drug Administration. 7-Aminoclonazepam 0 <60 ng/mL N This te st was developed and its performance characteristics determined by [facility]. It has not been cleared or approved by the U.S. Food and Drug Administration. Alprazolam 0 <60 ng/mL N This test was developed and its performance characteristics determined by [facility]. It has not been cleared or approved by the U.S. Food and Drug Administration. Amphetamine 0 <75 ng/mL N This test was developed and its performance characteristics determined by [facility]. It has not been cleared or approved by the U.S. Food and Drug Administration. aOH-Alprazolam 0 <60 ng/mL N This test was developed and its performance characteristics determined by [facility]. It has not been cleared or approved by the U.S. Food and Drug Administration. Buprenorphine 0.0 <7.5 ng/mL N This test w as developed and its performance characteristics determined by [facility]. It has not been cleared or approved by the U.S. Food and Drug Administration. Norbuprenorphine 0.0 <37.5 ng/mL N This te st was developed and its performance characteristics determined by [facility]. It has not been cleared or approved by the U.S. Food and Drug Administration. Carisoprodol 0 <75 ng/mL N This test wa s developed and its performance characteristics determined by [facility]. It has not been cleared or approved by the U.S. Food and Drug Administration. Codeine 0 <75 ng/mL N This test was developed and its performance characteristics determined by [facility]. It has not been cleared or approved by the U.S. Food and Drug Administration. EDDP 0 <75 ng/mL N This test was developed and its performance characteristics determined by [facility]. It has not been cleared or approved by the U.S. Food and Drug Administration. Fentanyl 0 <6 ng/mL N This test was developed and its performance characteristics determined by [facility]. It has not been cleared or approved by the U.S. Food and Drug Administration. Hydrocodone 2885 <75 ng/mL H This test was developed and its performance characteristics determined by [facility]. It has not been cleared or approved by the U.S. Food and Drug Administration. Hydromorphone 295 <75 ng/mL H This test w as developed and its performance characteristics determined by [facility]. It has not been cleared or approved by the U.S. Food and Drug Administration. Lorazepam 0 <60 ng/mL N This test was developed and its performance characteristics determined by [facility]. It has not been cleared or approved by the U.S. Food and Drug Administration. MDMA 0 <75 ng/mL N This test was developed and its performance characteristics determined by [facility]. It has not been cleared or approved by the U.S. Food and Drug Administration. Meperidine 0.0 <37.5 ng/mL N This test was developed and its performance characteristics determined by [facility]. It has not been cleared or approved by the U.S. Food and Drug Administration. Meprobamate 0 <75 ng/mL N This test was developed and its performance characteristics determined by [facility]. It has not been cleared or approved by the U.S. Food and Drug Administration. Methamphetamine 0 <75 ng/mL N This test was developed and its performance characteristics determined by [facility]. It has not been cleared or approved by the U.S. Food and Drug Administration. Methadone 0 <75 ng/mL N This test was developed and its performance characteristics determined by [facility]. It has not been cleared or approved by the U.S. Food and Drug Administration. Morphine 0 <75 ng/mL N This test was developed and its performance characteristics determined by [facility]. It has not been cleared or approved by the U.S. Food and Drug Administration. Nordiazepam 11 <60 ng/mL N This test was developed and its performance characteristics determined by [facility]. It has not been cleared or approved by the U.S. Food and Drug Administration. Norfentanyl 0 <6 ng/mL N This test was developed and its performance characteristics determined by [facility]. It has not been cleared or approved by the U.S. Food and Drug Administration. Normeperidine 0.0 <37.5 ng/mL N This test was developed and its performance characteristics determined by [facility]. It has not been cleared or approved by the U.S. Food and Drug Administration. O-desmethyltramadol 0 <75 ng/mL N This test was developed and its performance characteristics determined by [facility]. It has not been cleared or approved by the U.S. Food and Drug Administration. Oxazepam 0 <60 ng/mL N This test was developed and its performance characteristics determined by [facility]. It has not been cleared or approved by the U.S. Food and Drug Administration. Oxycodone 0.0 <37.5 ng/mL N This test was developed and its performance characteristics determined by [facility]. It has not been cleared or approved by the U.S. Food and Drug Administration. Oxymorphone 0 <75 ng/mL N This test was developed and its performance characteristics determined by [facility]. It has not been cleared or approved by the U.S. Food and Drug Administration. Phencyclidine 0.0 <7.5 ng/mL N This test w as developed and its performance characteristics determined by [facility]. It has not been cleared or approved by the U.S. Food and Drug Administration. Tapentadol 0.0 <37.5 ng/mL N This test was developed and its performance characteristics determined by [facility]. It has not been cleared or approved by the U.S. Food and Drug Administration. Temazepam 0 <60 ng/mL N This test was developed and its performance characteristics determined by [facility]. It has not been cleared or approved by the U.S. Food and Drug Administration. Tramadol 0 <75 ng/mL N This test was developed and its performance characteristics determined by [facility]. It has not been cleared or approved by the U.S. Food and Drug Administration. Norhydrocodone 2965 <75 ng/mL H This test was developed and its performance characteristics determined by [facility]. It has not been cleared or approved by the U.S. Food and Drug Administration. Noroxycodone 0 <38 ng/mL N This test wa s developed and its performance characteristics determined by [facility]. It has not been cleared or approved by the U.S. Food and Drug Administration. Pregabalin 0 <225 ng/mL N This test was developed and its performance characteristics determined by [facility]. It has not been cleared or approved by the U.S. Food and Drug Administration. Gabapentin 0 <225 ng/mL N This test was developed and its performance characteristics determined by [facility]. It has not been cleared or approved by the U.S. Food and Drug Administration. Benzoylecgonine 0.0 <37.5 ng/mL N This elizabeth t was developed and its performance characteristics determined by [facility]. It has not been cleared or approved by the U.S. Food and Drug Administration. 4-Hydroxy Xylazine 0 <25 ng/mL N This t est was developed and its performance characteristics determined by [facility]. It has not been cleared or approved by the U.S. Food and Drug Administration. Urine Drug Screen (cup read) - [id number] Reviewed date:10/09/2024 03:55:43 PM Interpretation: Performing Lab: Notes/Report: OPI + Reason For Referral No Information Medications Medication SIG (Take, Route, Frequency, Duration) Notes Start Date End Date Status Cyclobenzaprine HCl 10 mg Tablet TAKE ONE TABLET BY MOUTH THREE TIMES DAILY NEEDED FOR MUSCLE SPASMS; Duration: 10 Active Cetirizine HCl 10 mg Tablet TAKE TWO TABLETS BY MOUTH ONCE DAILY; Duration: 30 Active Cefuroxime Axetil 500 mg Tablet TAKE ONE TABLET BY MOUTH EVERY TWELVE HOURS FOR 5 DAYS; Duration: 5 Active OneTouch Ultra - Strip USE TO TEST ONCE DAILY; Duration: 90 Not-Taking Amrix *Pick strength-form from [employer] for eRX* Active Ferrous Gluconate 240 (27 Fe) MG Tablet TAKE ONE TABLET BY MOUTH EVERY OTHER DAY BETWEEN MEALS WITH WATER OR JUICE; Duration: 30 Not-Taking Dexilant 60 mg Capsule Delayed Release TAKE ONE CAPSULE BY MOUTH DAILY; Duration: 30 Not-Taking ZyrTEC *Pick strength-form from [employer] for eRX* Active HYDROcodone-Acetaminop hen 10-325 MG Tablet 1 tablet Orally every 6 hrs; Duration: 30 days As needed Not to exceed 4 per day Fill on 05/16/2025 04/16/2025 5 Active Lidocaine 5 % Ointment 1 application as needed Externally Three times a day; Duration: 30 days Active Hydrocodone Bitartrate *Pick strength-form from [employer] for eRX* Active Gabapentin *Pick strength-form from [employer] for eRX* Active Gabapentin 600 mg Tablet TAKE ONE TABLET BY MOUTH THREE TIMES DAILY - 30 DAYS; Duration: 30 Active Fluticasone Propionate 50 MCG/ACT Suspension USE 2 SPRAYS IN EACH NOSTRIL ONCE DAILY; Duration: 30 Active Effexor XR *Pick strength-form from [employer] for eRX* Active rOPINIRole HCl 0.25 mg Tablet TAKE ONE TABLET BY MOUTH DAILY; Duration: 30 Active Requip XL *Reorder from [employer] for eRx and Interaction Alerts* Active HYDROcodone-Acetaminop hen 10-325 MG Tablet 1 tablet Orally every 6 hrs; Duration: 30 days As needed Not to exceed 4 per day Fill on 04/16/2025 04/16/2025 5 Active Prochlorperazine Maleate 5 mg Tablet TAKE ONE TABLET BY MOUTH THREE TIMES DAILY; Duration: 30 Active Pravastatin Sodium 80 mg Tablet TAKE ONE TABLET BY MOUTH DAILY; Duration: 30 Active Pravastatin *Reorder from [employer] for eRx and Interaction Alerts* Active Alendronate Sodium 70 mg Tablet TAKE ONE TABLET BY MOUTH ONCE WEEKLY 30 MINUTES BEFORE THE FIRST FOOD, BEVERAGE, OR MEDICATION OF THE DAY WITH PLAIN WATER; Duration: 30 Active Alendronate *Reorder from [employer] for eRx and Interaction Alerts* Active Albuterol Sulfate HFA 108 (90 Base) MCG/ACT Aerosol Solution INHALE 2 PUFFS BY MOUTH EVERY 4 TO 6 HOURS; Duration: 30 Active Venlafaxine HCl 75 mg Tablet TAKE ONE TABLET BY MOUTH ONCE DAILY WITH FOOD IN THE MORNING; Duration: 30 Active Albuterol Sulfate (2.5 MG/3ML) 0.083% Nebulization Solution 3 ml as needed Inhalation every 4 hrs; Duration: 30 day(s) 10/27/2019 Active traZODone HCl 50 mg Tablet TAKE ONE TABLET BY MOUTH DAILY; Duration: 30 Active trazodone *Reorder from [employer] for eRx and Interaction Alerts* Active Topamax 100 MG Tablet 1 tablet Orally Once a day; Duration: 30 day(s) 07/04/2021 Active Spiriva HandiHaler 18 mcg Capsule INHALE CONTENTS OF 1 CAPSULE INTO LUNGS USING HANDIHALER ONCE DAILY; Duration: 30 Active Immunizations Vaccine Route Administration Date Status Comme nts Flu vaccine no Preserv 3 and > IM Intramuscular 05/06/2010 Administered Flu vaccine no Preserv 3 and > IM Intramuscular 05/18/2011 Administered Flu vaccine no Preserv 3 and > IM Intramuscular 07/10/2012 Administered Pneumococcal conjugate PCV 13 IM Intramuscular 07/10/2012 Administered Tdap IM Intramuscular 07/10/2012 Administered Social History Tobacco Use: Social History Observation Description Date Details (start date - stop date) Current Smoker NA - NA Social History Depression Screening Social Info Question Answer Notes PHQ-9 Little interest or pleasure in doing thin gs Not at all Feeling down, depressed, or hopeless Several day s Trouble falling or staying asleep, or sleeping t oo much Several days Feeling tired or having little energy Nearly jodee ry day Poor appetite or overeating Several days Feeling bad about yourself, or that you are a failure, or have let yourself or your family down Not at all Trouble concentrating on thi ngs, such as reading the newspaper or watching television Several days Moving or speaking so slowly that other people could have noticed. Or the opposite ? being so fidgety or restless that you have been moving around a lot more than usual Not at all Thoughts that you would be b kayla off , or of hurting yourself in some way Not at all Total Score 7 Interpretation Mild Depression Drugs/Alcohol: Social Info Question Answer Notes Alcohol Screen (Audit-C) Did you have a drink containing alcohol in the past year? No Points 0 Interpretation Negative Drugs Have you used drugs other than those for medical reasons in the past 12 months? No Caffeine Intake: 3-4 cups per day Household: Social Info Question Answer Notes Household Marital status: Marital status: Marital status: Marital status: Level of education: not finished high school Level of education: not finished high school Level of education: not finished high school Level of education: not finished high school Tobacco Use: Social Info Question Answer Notes xTobacco Use/Smoking Are you a current smoker How often do you smoke cigarettes? every day How many cigarettes a day do you smoke? 11-20 How soon after you wake up do you smoke your first cigarette? 6-30 minutes Are you interested in quitting? Not ready to quit Additional Details Category Social Info Options Details Drugs/Alcohol: Do you smoke marijuana? De nies Migrated Social History Migrated Social History Smoking - 1 PPD, Smoking status (MU) - Current every day smoker zzMigrated Social History Migrated Social History Occupation: Unemployed. Education - Grade 10; Marital Status: Single Children: 3 children Section Notes: 10/20/20 Tobacco 10/20/20 Depr ession 10/20/20 Tobacco 10/20/20 Depr ession 10/20/20 Tobacco 10/20/20 Depr ession 10/20/20 Tobacco 10/20/20 Depr ession 10/20/20 Tobacco 10/20/20 Depr ession 10/20/20 Tobacco 10/20/20 Depr ession 10/20/20 Tobacco 10/20/20 Depr ession 10/20/20 Tobacco 10/20/20 Depr ession 10/20/20 Tobacco 10/20/20 Depr ession 10/20/20 Tobacco 10/20/20 Depr ession 10/20/20 Tobacco 10/20/20 Depr ession 10/20/20 Tobacco 10/20/20 Depr ession 10/20/20 Tobacco 10/20/20 Depr ession 10/20/20 Tobacco 10/20/20 Depr ession 10/20/20 Tobacco 10/20/20 Depr ession 10/20/20 Tobacco 10/20/20 Depr ession 10/20/20 Tobacco 10/20/20 Depr ession 10/20/20 Tobacco 10/20/20 Depr ession 10/20/20 Tobacco 10/20/20 Depr ession 10/20/20 Tobacco 10/20/20 Depr ession 10/20/20 Tobacco 10/20/20 Depr ession 10/20/20 Tobacco 10/20/20 Depr ession 10/20/20 Tobacco 10/20/20 Depr ession 10/20/20 Tobacco 10/20/20 Depr ession 10/20/20 Tobacco 10/20/20 Depr ession 10/20/20 Tobacco 10/20/20 Depr ession Problems Problem Type SNOMED Code ICD Code Onset Dates Problem Status W/U Status Risk Notes Problem Major depression, single episode (28937005) Major depressive disorder, single episode, unspecified (F32.9) Active confirmed Problem Chronic tension-type headache (129118861) Chronic tension-type headache, intractable (G44.221) Active confirmed Problem Peripheral vascular disease (480689527) Peripheral vascular disease, unspecified (I73.9) 2023 Active confirmed Problem Allergic rhinitis caused by pollen (disorder) (87102923) Allergic rhinitis due to pollen (J30.1) Active confirmed Problem Gastro-esophageal reflux disease with esophagitis (101061144) Gastro-esophageal reflux disease with esophagitis (K21.0) Active confirmed Problem Acquired spondylolisthesis (813346367) Spondylolisthesis, lumbar region (M43.16) 2023 Active confirmed Problem Degeneration of lumbar intervertebral disc (11389925) Other intervertebral disc degeneration, lumbar region (M51.36) 2023 Active confirmed Problem Panniculitis affecting back (72973707) Panniculitis affecting regions of neck and back, thoracolumbar region (M54.05) Active confirmed Problem Age-related osteoporosis (965315901) Age-related osteoporosis without current pathological fracture (M81.0) Active confirmed Problem Abnormal gait (94215692) Unspecified abnormalities of gait and mobility (R26.9) 2023 Active confirmed Problem High risk drug monitoring status (322959407) terminal makeup operator (current) use of opiate analgesic (Z79.891) Active confirmed Problem Pure hypercholesterolemia (469882231) Pure hypercholesterolemia , unspecified (E78.00) Active confirmed Problem Spinal stenosis of lumbar region (85621451) Spinal stenosis, lumbar region without neurogenic claudication (M48.061) 2023 Active confirmed Problem Essential hypertension (44975183) Essential hypertension (I10) Active confirmed Problem Chronic fatigue syndrome (83752520) Chronic fatigue (R53.82) Active confirmed Problem COPD - Chronic obstructive pulmonary disease (08016247) Chronic obstructive pulmonary disease, unspecified COPD type (J44.9) Active confirmed Problem Moderate recurrent major depression (20741799) Moderate episode of recurrent major depressive disorder (F33.1) Active confirmed Problem Restless legs syndrome (93068162) Restless leg syndrome (G25.81) Active confirmed Problem Mild recurrent major depression (86903435) Mild episode of recurrent major depressive disorder (F33.0) Active confirmed Problem Peripheral vascular disease (961645683) Peripheral vascular disease (I73.9) Active confirmed Problem Sciatica (02623197) Right sciati c nerve pain (M54.31) Active confirmed Problem Lumbar spondylosis with myelopathy (disorder) (82385242) Lumbar and sacral spondylarthritis (M47.817) Active confirmed Problem Abnormal gait (06050484) Abnormality of gait and mobility (R26.9) Active confirmed Problem Peripheral vascular disease (284067699) Peripheral vascular disease of lower extremity (I73.9) Active confirmed Problem Loss of taste (33769788) Loss of taste (R43.2) Active confirmed Problem Primary hypertension (29641982) Primary hypertension (I10) Active confirmed Problem Acquired spondylolisthesis (070641232) Anterolisthesis of lumbar spine (M43.16) Active confirmed Problem Lumbosacral spondylosis without myelopathy (71022924) Lumbar spondylarthritis (721.3) 2009 Active confirmed [facility]11- Problem Diabetes mellitus type 2 (disorder) (57360165) Type 2 diabetes (250.00) 2016 Active confirmed [facility]- Problem Allergic rhinitis caused by pollen (disorder) (93541791) Allergic rhinitis due to pollen (477.0) 2009 Problem resolved confirmed [facility]- Problem Acute frontal sinusitis (87349472) Acute frontal sinusitis (461.1) 2010 Problem resolved confirmed [facility]- Problem Carious exposure of pulp (635539036) Dental caries extending into pulp (521.03) 2010 Problem resolved confirmed [facility]- Problem Slow transit constipation (51599084) Slow transit constipation (564.01) 2013 Problem resolved confirmed [facility]- Problem Edema (508998746) Edema (782.3) 2010 Problem resolved confirmed [facility]- Problem Shortness of breath (284333592) Shortness of breath (786.05) 2009 Problem resolved confirmed [facility]- Problem Low back pain (021729800) Low back pain (724.2) 2008 Problem resolved confirmed [facility]- Problem Fatigue (13990369) Fatigue (780.79) 10/04 Problem resolved confirmed [facility]- Problem Lesion of ulnar nerv e (820565495) Ulnar 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.2) 2014 Problem resolved confirmed [facility]- Problem Screening for breast cancer (502631089) Screening for breast cancer (V76.10) 2011 Problem resolved confirmed [facility]- Problem Screening for colon cancer (648644932) Screening for colon cancer (V76.49) 2018 Problem resolved confirmed [facility]- Problem Thrombophlebitis of superficial veins of lower extremity (56910263) Superficial leg vein thrombophlebitis (451.0) 2011 Problem resolved confirmed [facility]- Problem Acute sinusitis (35300162) Acute sinusitis (461.9) 2013 Problem resolved confirmed [facility]- Problem Allergic rhinitis du e to allergen (00881009) Allergic rhinitis, other allergen-induced, NEC (477.8) 2014 Problem resolved confirmed [facility]- Problem Allergic rhinitis caused by pollen (66479844) Allergies (477.0) 2008 Problem resolved confirmed [facility]- Problem Breast mass (46512128) Breast mass (611.72) 2008 Problem resolved confirmed [facility]- Problem Cellulitis and abscess of lower leg (276299266) Cellulitis of lower extremity (682.6) 2017 Problem resolved confirmed [facility]- Problem Acute exacerbation o f chronic obstructive airways disease (066162049) Chronic bronchitis, obstructive, with (acute) exacerbation (491.21) 2013 Problem resolved confirmed [facility]- Problem Chronic vascular insufficiency of intestine (758421983) Chronic ischemic bowel syndrome (557.1) 2018 Problem resolved confirmed [facility]- Problem Sore throat (586824393) Sore Throat (462) 2009 Problem resolved confirmed [facility]- Problem Tobacco dependence (45511156) Tobacco dependence (305.1) 2018 Problem resolved confirmed [facility]- Problem Acute exacerbation o f chronic obstructive airways disease (166968326) Acute exacerbation of chronic obstructive pulmonary disease (COPD) (491.21) 2016 Problem resolved confirmed [facility]- Problem Tobacco user (040478216) Cigarette smoking (305.1) 2009 Problem resolved confirmed [facility]- Problem Dental abscess (604789018) Dental abscess (522.5) 2015 Problem resolved confirmed [facility]- Problem Influenza with non-respiratory manifestation (63730559) Flu like symptoms (487.8) 2014 Problem resolved confirmed [facility]- Problem Generalized abdomina l pain (363097676) Generalized abdominal pain (789.07) 2014 Problem resolved confirmed [facility]- Problem Intermittent claudication (27889903) Intermittent claudication (443.9) 2014 Problem resolved confirmed [facility]- Problem Lab: Used to mat ch unlinked laboratory orders (V92) 2013 Problem resolved confirmed [facility]- Problem Flank pain (978166832) Flank pain (724.8) 2016 Problem resolved confirmed [facility]- Problem Elevated levels of transaminase & lactic acid dehydrogenase (637014724) Elevated SGOT (AST) (790.4) 2010 Problem resolved confirmed [facility]- Problem Gastroesophageal reflux disease with esophagitis (751748780) Esophagitis due to GERD (530.11) 2008 Problem resolved confirmed [facility]- Problem Herpes simplex without complication (887107523) Herpes simplex, without complication (054.9) 2017 Problem resolved confirmed [facility]- Problem Influenza (7153775) Influenza (487.8) 2008 Problem resolved confirmed [facility]- Problem Pain in limb (82828908) Leg pain (729.5) 2008 Problem resolved confirmed [facility]- Problem Peripheral neuropath y (319079520) Peripheral neuropathy (356.9) 2013 Problem resolved confirmed [facility]- Problem Polyp of vocal cord (0394395) Polyp of vocal cord (478.4) 2018 Problem resolved confirmed [facility]- Problem Adhesive capsulitis of shoulder (470090936) Shoulder tendinitis (726.0) 2008 Problem resolved confirmed [facility]- Problem General examination of patient (875819007) Annual exam (V70.0) 2007 Problem resolved confirmed [facility]- Problem Continuous opioid dependence (536241155) Opioid dependence, continuous (304.01) 2018 Problem resolved confirmed [facility]- Problem Sunburn (407713359) Sunburn (692.71) 2017 Problem resolved confirmed [facility]- Problem Tobacco user (645022118) Tobacco abuse affecting health (305.1) 2013 Problem resolved confirmed [facility]- Problem Electrocardiogram abnormal (890695688) Abnormal EKG (794.31) 2014 Problem resolved confirmed [facility]- Problem Acute upper respiratory infection (45504713) Acute upper respiratory infection (465.8) 2008 Problem resolved confirmed [facility]- Problem Chest pain (05572808) Chest pain , other type (786.59) 2018 Problem resolved confirmed [facility]- Problem Localized, primary osteoarthritis of the shoulder region (451031088) OA of shoulder (715.11) 2013 Problem resolved confirmed [facility]- Problem Screening for osteoporosis (214053129) Screening for osteoporosis (V82.81) 2018 Problem resolved confirmed [facility]- Problem Neoplasm of uncertai n behavior of skin (59580817) Atypical skin lesion (238.2) 2015 Problem resolved confirmed [facility]- Problem Thyroid function tests abnormal (635718220) Abnormal thyroid findings (794.5) 2018 Problem resolved confirmed [facility]- Problem 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) 2012 Problem resolved confirmed [facility]- Problem Constipation (92825316) Constipation (564.01) 2008 Problem resolved confirmed [facility]- Problem Depression (577402497) Depression (296.20) 2014 Problem resolved confirmed [facility]- Problem Chronic diastolic heart failure (030993270) Diastolic heart failure, chronic (428.32) 2015 Problem resolved confirmed [facility]- Problem Emphysematous bleb o f lung (60116456) Emphysematous lung (492.0) 2018 Problem resolved confirmed [facility]- Problem Acute sinusitis (01442830) Acute sinusitis (461.8) 2008 Problem resolved confirmed [facility]- Problem Adjustment disorder with depressed mood (28002455) Bereavement adjustment reaction (309.0) 2014 Problem resolved confirmed [facility]- Problem Elbow pain (25247630) Elbow pain (719.42) 2014 Problem resolved confirmed [facility]- Problem Acute gastritis (89635788) Gastritis, acute (535.00) 2016 Problem resolved confirmed [facility]- Problem 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) Varicose leg veins (454.9) 2013 Problem resolved confirmed [facility]- Problem Intermittent claudication (35882076) Claudication due to peripheral vascular disease (440.21) 2018 Problem resolved confirmed [facility]- Problem COPD - Chronic obstructive pulmonary disease (40821672) COPD (496) 2012 Problem resolved confirmed [facility]- Problem Unexplained weight loss (534835067) Unexplained weight loss (783.21) 2015 Problem resolved confirmed [facility]- Problem Easy bruising (451801500) Easy bruising (782.7) 2013 Problem resolved confirmed [facility]- Problem Gastroesophageal reflux disease with esophagitis (127238375) GE reflux esophagitis (530.11) 2008 Problem resolved confirmed [facility]- Problem Hoarseness (02458105) Hoarseness (784.49) 2007 Problem resolved confirmed [facility]- Problem Cramp in lower limb (061383120) Leg cramps (729.82) 2016 Problem resolved confirmed [facility]- Problem Nausea and vomiting (35216209) Nausea and vomiting (787.01) 2016 Problem resolved confirmed [facility]- Problem Osteoporosis (02416048) Osteoporosis (733.09) 2008 Problem resolved confirmed [facility]- Problem Gastroesophageal reflux disease (484214663) GERD (530.81) 2015 Problem resolved confirmed [facility]- Problem Influenza vaccinatio n (44455315) Influenza vaccination (V04.81) 2013 Problem resolved confirmed [facility]- Problem Periumbilical pain (278676766) Mid-abdominal pain (789.05) 2012 Problem resolved confirmed [facility]- Problem Nausea (534763616) Nausea (787.02) 2014 Problem resolved confirmed [facility]- Problem Closed fracture of foot (735725301) Foot fracture (825.20) 2016 Problem resolved confirmed [facility]- Problem Lumbar spondylosis with myelopathy (70504989) Lumbar spondylosis with myelopathy (721.42) 2018 Problem resolved confirmed [facility]- Problem Screening for malignant neoplasm of breast (222053634) Screening for breast cancer, unspecified (V76.10) 2018 Problem resolved confirmed [facility]- Problem Screening mammograph y (50687013) Screening mammogram - other (V76.12) 2018 Problem resolved confirmed [facility]- Problem Carotid artery occlusion without infarction (784139039371569) Carotid artery stenosis, without cerebral infarction (433.10) 2009 Problem resolved confirmed [facility]- Problem Vitamin D deficiency (89272041) Vitamin D deficiency (268.9) 2013 Problem resolved confirmed [facility]- Problem Neck pain (89721416) Neck pain (723.1) 2014 Problem resolved confirmed [facility]- Problem Hypokalemia (75633600) Hypokalemia (276.8) 2013 Problem resolved confirmed [facility]- Problem Gynecological examination normal (249212455633365) Routine gynecological examination (V72.31) 2018 Problem resolved confirmed [facility]- Problem Cough (99350384) Cough (786.2) 2016 Problem resolved confirmed [facility]- Problem Wheezing (29514525) Wheezing (786.07) 2009 Problem resolved confirmed [facility]- Problem Headache (28406005) Headache (784.0) 01/06 Problem resolved confirmed [facility]- Problem Dyspareunia (12093909) Dyspareunia (625.0) 2015 Problem resolved confirmed [facility]- Problem Gross hematuria (182529622) Gross hematuria (599.71) 2016 Problem resolved confirmed [facility]- Problem Acute sinusitis (95931053) Acute sinusitis, unspecified (461.9) 2008 Problem resolved confirmed [facility]- Problem Emphysema (77732483) Emphysema, other (492.8) 2013 Active confirmed [facility]- Problem Change in voice (607493180) Change in voice (784.49) 2013 Active confirmed [facility]- Problem Essential tremor (761095742) Benign essential tremor (333.1) 2017 Active confirmed [facility]- Problem Sinus bradycardia (90806988) Sinus bradycardia (427.89) 2015 Active confirmed [facility]- Problem Alopecia areata (18751523) Alopecia areata (704.01) 2018 Active confirmed [facility]- Problem Generalized anxiety disorder (71247784) Generalized anxiety disorder (300.02) 2018 Active confirmed [facility]- Problem Spinal stenosis of lumbar region (96851567) Foraminal stenosis of lumbar region (M48.061) Active confirmed Problem Iron deficiency anemia (08521095) Iron deficiency anemia (D50.9) Active confirmed Problem Tobacco user (475472176) Chewing tobacco nicotine dependence without complication (F17.220) Active confirmed Problem Allergic rhinitis caused by pollen (14637105) Seasonal allergic rhinitis due to pollen (J30.1) Active confirmed Problem Spinal stenosis of lumbar region (14100921) Spinal stenosis of lumbar region without neurogenic claudication (M48.061) Active confirmed Problem Chronic maxillary sinusitis (33901085) Chronic maxillary sinusitis (J32.0) Active confirmed Problem Chronic pain syndrom e (733857488) Chronic pain syndrome (G89.4) 2023 Active confirmed Problem Tobacco user (646982394) Nicotine dependence, unspecified, uncomplicated (F17.200) Active confirmed Problem Neoplasm of uncertai n behavior of connective and other soft tissues (46494624) Unspecified skin lesion (239.2) 2010 Problem resolved confirmed [facility]11- Problem Other abnormal findings on radiological exam of breast (793.89) 2007 Problem resolved confirmed [facility]- Problem PVD with claudication (440.21) 2012 Problem resolved confirmed [facility]- Problem Needs influenza immunization (145784756) Vaccination against other viral diseases, Influenza (V04.81) 2010 Problem resolved confirmed [facility]- Problem Insomnia (084244720) Insomnia (307.41) 2008 Problem resolved confirmed [facility]- Problem Insect bites - nonvenomous (547585180) Insect bites (919.5) 2011 Problem resolved confirmed [facility]- Problem Impaired fasting glycaemia (579136694) Elevated fasting glucose (790.21) 2009 Problem resolved confirmed [facility]- Problem Depressive disorder (58600419) Depressive disorder not elsewhere classified (311) 2011 Problem resolved confirmed [facility]- Problem Chest pain (88491146) Chest pain (786.51) 2007 Problem resolved confirmed [facility]- Problem Tobacco abuse (3050768984) Tobacco abuse (305.1) 2012 Problem resolved confirmed [facility]- Problem Shoulder pain (21491410) Shoulder pain (719.41) 2013 Problem resolved confirmed [facility]- Problem Hypercholesterolemia (67783835) Hypercholesterolemia (272.0) 2009 Problem resolved confirmed [facility]- Problem Headache (80381174) Headache (307.81) 2010 Problem resolved confirmed [facility]11- Vital Signs Height-cm 162.56 cm 04/16/2025 Weight-kg 43.09 kg 04/16/2025 Height 64.00 in 04/16/2025 Weight 95 lbs 04/16/2025 BMI 16.3 kg/m2 04/16/2025 Encounters Encounter Location Date Provider Diagnosis [facility] [address] [address] 07/02/2024 Luis Enrique Mcrae Chronic pain syndrom e G89.4 ; Degeneration of intervertebral disc of lumbar region with discogenic back pain M51.360 ; Spinal stenosis of lumbar region without neurogenic claudication M48.061 ; Anterolisthesis of lumbar spine M43.16 ; Peripheral vascular disease of lower extremity I73.9 ; Abnormality of gait and mobility R26.9 and skilled nursing (current) use of opiate analgesic Z79.891 [facility] [address] [address] 08/14/2024 Magda Pool Chronic pain syndrom e G89.4 ; Degeneration of intervertebral disc of lumbar region with discogenic back pain M51.360 ; Spinal stenosis, lumbar region without neurogenic claudication M48.061 ; Spondylolisthesis, lumbar region M43.16 and terminal makeup operator (current) use of opiate analgesic Z79.891 [facility] [address] [address] 10/09/2024 Magda Pool Chronic pain syndrom e G89.4 ; Degeneration of intervertebral disc of lumbar region with discogenic back pain M51.360 ; Spinal stenosis, lumbar region without neurogenic claudication M48.061 ; Spondylolisthesis, lumbar region M43.16 and skilled nursing (current) use of opiate analgesic Z79.891 [facility] [address] [address] 12/10/2024 Luis Enrique Mcrae Chronic pain syndrom e G89.4 ; Degeneration of intervertebral disc of lumbar region with discogenic back pain M51.360 ; Spinal stenosis, lumbar region without neurogenic claudication M48.061 ; Neck pain M54.2 ; Spondylolisthesis, lumbar region M43.16 and terminal makeup operator (current) use of opiate analgesic Z79.891 [facility] [address] [place] [address] 02/12/2025 Magda Pool Chronic pain syndrom e G89.4 ; Degeneration of intervertebral disc of lumbar region with discogenic back pain M51.360 ; Spinal stenosis, lumbar region without neurogenic claudication M48.061 ; Spondylolisthesis, lumbar region M43.16 and skilled nursing (current) use of opiate analgesic Z79.891 [facility] [address] [place] [address] 04/16/2025 Magda Pool Chronic pain syndrom e G89.4 ; Degeneration of intervertebral disc of lumbar region with discogenic back pain M51.360 ; Spinal stenosis, lumbar region without neurogenic claudication M48.061 ; Spondylolisthesis, lumbar region M43.16 ; terminal makeup operator (current) use of opiate analgesic Z79.891 and Depression screen Z13.31 Migrated_Facility 0 0 05/31/2024 Provider Migration Migrated_Facility 0 0 06/01/2024 Provider Migration [facility] [address] [address] [facility]/14[facility]20[facility] [address] [place] [address] 10/09[facility] [address] [place] [address] 02/12/2025 Luis Enrique Thor Spinal stenosis, lumbar region without neurogenic claudication M48.061 [facility] [address] [address] 04/16/2025 Luis Enrique Mcrae Spinal stenosis, lumbar region without neurogenic claudication M48.061 Assessments Encounter Date Diagnosis (ICD Code) Assessment Notes Treatment Notes Treatment Clinical Notes Section Notes 07/02/2024 Chronic pain syndrome (ICD-10 - G89.4) I had a nice visit with the patient today regarding her chronic pain issues. She has completed her radiation for the lung cancer and has her follow up scan next week. She does continue to smoke. Unfortunately, the medications don't seem to provide a great deal of benefit for her at this point so we will try switching her over to Percocet instead and see how she does. We will see her back in 1 month. 07/02/2024 Degeneration of intervertebral disc of lumbar region with discogenic back pain (ICD-10 - M51.360) 08/14/2024 Chronic pain syndrome (ICD-10 - G89.4) I had a nice discussion with the patient today regarding her chronic pain complaints. She was trialed on oxycodone at her last visit but feels she was doing better on the hydrocodone. After discussion, she would like to transition back to the hydrocodone 10/325 4/day which we will do for her. She reports she has a PET scan coming up and will keep us updated on this. She denies any other changes since we last seen her any untoward side effects of the medication. She will return to clinic in 2 months to monitor for treatment effectiveness and compliance. 08/14/2024 Degeneration of intervertebral disc of lumbar region with discogenic back pain (ICD-10 - M51.360) 10/09/2024 Chronic pain syndrome (ICD-10 - G89.4) I had a nice discussion with the patient today regarding her chronic pain complaints. She continues with lower back pain as well as radicular symptoms but defers any sort of interventional procedures stating that they just do not help. She reports her hydrocodone is partially effective. She feels it does help better than the oxycodone did. She is inquiring about medical marijuana and states she is going to think about giving this a try. She will let us know what she decides. She did have her PET scan and states the cancer is gone in her lungs so she is very excited about that. She denies any other changes since we last seen her any untoward side effects of the medication. She will continue her medication at present level and return to clinic in 2 months to monitor for treatment effectiveness and compliance as well as for biannual appointment with Dr. Mcrae The patient continues with chronic pain requiring treatment to help restore function and improve quality of life. Risks of opioid therapy as well as interaction of opioids with alcohol, illicit drugs, muscle relaxers, and other sedative medications are reviewed briefly with patient again today. The patient has trialed all other reasonable treatment options and uses the medication to alleviate pain in order to remain active and rest with less pain. No clinically relevant medication side effects are noted. Last UDS and AR DISPLAY FABRICATOR reviewed today. Patient is advised that best long-term goals include increased activity, core strengthening, proper weight management, coping strategies, avoidance of painful triggers, and targeted interventional therapy. We will see the patient for routine follow up in accordance with all clinic policies. We did remind patient today of current guidelines to decrease opioid when possible. We will continue to stress nonopioid treatment. 02/12/2025 Spinal stenosis, lumbar region without neurogenic claudication (ICD-10 - M48.061) 04/16/2025 Chronic pain syndrome (ICD-10 - G89.4) I had a nice discussion with the patient today regarding her chronic pain complaints. She continues with lower back pain as well as radicular symptoms. She continues to defer any interventional procedures stating they have not helped her in the past. I did review her most recent imaging with her again today. She defers any physical therapy or updated imaging. She continues to follow with pulmonology and states they are doing multiple testing on her. She states they are doing a test on her voicebox. She states she will also be having a CT scan soon to make sure her cancer has not returned. She denies any other changes since we last seen her any untoward side effects of medication. I did discuss lifestyle modifications as well as a bowel regimen. She will continue her medication at present level and return to clinic in 2 months to monitor for treatment effectiveness and compliance as well as for biannual appointment with Dr. Mcrae. The patient continues with chronic pain requiring treatment to help restore function and improve quality of life. Risks of opioid therapy as well as interaction of opioids with alcohol, illicit drugs, muscle relaxers, and other sedative medications are reviewed briefly with patient again today. The patient has trialed all other reasonable treatment options and uses the medication to alleviate pain in order to remain active and rest with less pain. No clinically relevant medication side effects are noted. Last UDS and AR DISPLAY FABRICATOR reviewed today. Patient is advised that best long-term goals include increased activity, core strengthening, proper weight management, coping strategies, avoidance of painful triggers, and targeted interventional therapy. We will see the patient for routine follow up in accordance with all clinic policies. We did remind patient today of current guidelines to decrease opioid when possible. We will continue to stress nonopioid treatment. URINE TESTING TODAY; POINT OF SERVICE Urine drug screening will be performed today to monitor compliance with opioid therapy or to serve as a baseline screen for a patient who may be a candidate for opioid therapy in the future, pending UDS results. We will monitor with in-office testing (rapid testing) today and review the results prior to dispensing prescription, as well. Patient has been made aware of this policy. 04/16/2025 Spinal stenosis, lumbar region without neurogenic claudication (ICD-10 - M48.061) 02/12/2025 Chronic pain syndrome (ICD-10 - G89.4) I had a nice discussion with the patient today regarding her chronic pain complaints. She states she is doing reasonably well on her current medication regimen. She continues with lower back pain as well as radicular symptoms. She defers any interventional procedures stating they do not really help her. She is not feeling well today and states that she has an appointment with her PCP this afternoon for upper respiratory symptoms. I did discuss lifestyle modifications as well as a bowel regimen. She denies any other changes in her health since we last seen her any untoward side effects of the medication. She will continue her medication at present level and return to clinic in 2 months to monitor for treatment effectiveness and compliance. The patient continues with chronic pain requiring treatment to help restore function and improve quality of life. Risks of opioid therapy as well as interaction of opioids with alcohol, illicit drugs, muscle relaxers, and other sedative medications are reviewed briefly with patient again today. The patient has trialed all other reasonable treatment options and uses the medication to alleviate pain in order to remain active and rest with less pain. No clinically relevant medication side effects are noted. Last UDS and AR DISPLAY FABRICATOR reviewed today. Patient is advised that best long-term goals include increased activity, core strengthening, proper weight management, coping strategies, avoidance of painful triggers, and targeted interventional therapy. We will see the patient for routine follow up in accordance with all clinic policies. We did remind patient today of current guidelines to decrease opioid when possible. We will continue to stress nonopioid treatment. RECOMMEND URINE TESTING TODAY Urine drug screening will be performed today to monitor compliance with opioid therapy or to serve as a baseline screen for a patient who may be a candidate for opioid therapy in the future, pending UDS results. We will monitor with in-office testing (rapid testing) today and review the results prior to dispensing prescription. All positive results will be sent for quantitative analysis to ensure accuracy and quantify amounts. Any expected positive results that return negative will also be sent for quantitative analysis. Any questionable read or any medication we cannot test for in the office confidently will be sent for quantitative analysis, as well. Patient has been made aware of this policy and agrees to abide by our urine testing policy. 12/10/2024 Chronic pain syndrome (ICD-10 - G89.4) I had a nice visit with the patient today regarding her chronic pain issues. Overall, she seems to be doing about the same. She spends a lot of time in bed according to her, due to her back issues. She reports that any activity worsening her symptoms, and she has not had any relief with interventions, including the one lumbar epidural we did and then others she had elsewhere. We discussed transitioning to a different medication, and she says she would prefer to stay with this. She tried a marijuana gummy and said that she started hallucinating, but we discussed other preparations that she could maybe use lower doses, as she had some success with this in the past. We will continue her medication unchanged for a couple of months and then follow up with her thereafter. 12/10/2024 Degeneration of intervertebral disc of lumbar region with discogenic back pain (ICD-10 - M51.360) 12/10/2024 Spinal stenosis, lumbar region without neurogenic claudication (ICD-10 - M48.061) 02/12/2025 Degeneration of intervertebral disc of lumbar region with discogenic back pain (ICD-10 - M51.360) 10/09/2024 Degeneration of intervertebral disc of lumbar region with discogenic back pain (ICD-10 - M51.360) 04/16/2025 Degeneration of intervertebral disc of lumbar region with discogenic back pain (ICD-10 - M51.360) 08/14/2024 Spinal stenosis, lumbar region without neurogenic claudication (ICD-10 - M48.061) 07/02/2024 Spinal stenosis of lumbar region without neurogenic claudication (ICD-10 - M48.061) 08/14/2024 Spondylolisthesis, lumbar region (ICD-10 - M43.16) 10/09/2024 Spinal stenosis, lumbar region without neurogenic claudication (ICD-10 - M48.061) 07/02/2024 Anterolisthesis of lumbar spine (ICD-10 - M43.16) 04/16/2025 Spinal stenosis, lumbar region without neurogenic claudication (ICD-10 - M48.061) 12/10/2024 Neck pain (ICD-10 - M54.2) 02/12/2025 Spinal stenosis, lumbar region without neurogenic claudication (ICD-10 - M48.061) 02/12/2025 Spondylolisthesis, lumbar region (ICD-10 - M43.16) 12/10/2024 Spondylolisthesis, lumbar region (ICD-10 - M43.16) 07/02/2024 Peripheral vascular disease of lower extremity (ICD-10 - I73.9) 04/16/2025 Spondylolisthesis, lumbar region (ICD-10 - M43.16) 08/14/2024 terminal makeup operator (current) use of opiate analgesic (ICD-10 - Z79.891) 10/09/2024 Spondylolisthesis, lumbar region (ICD-10 - M43.16) 10/09/2024 skilled nursing (current) use of opiate analgesic (ICD-10 - Z79.891) RECOMMEND URINE TESTING TODAY Urine drug screening will be performed today to monitor compliance with opioid therapy or to serve as a baseline screen for a patient who may be a candidate for opioid therapy in the future, pending UDS results. We will monitor with in-office testing (rapid testing) today and review the results prior to dispensing prescription. All positive results will be sent for quantitative analysis to ensure accuracy and quantify amounts. Any expected positive results that return negative will also be sent for quantitative analysis. Any questionable read or any medication we cannot test for in the office confidently will be sent for quantitative analysis, as well. Patient has been made aware of this policy and agrees to abide by our urine testing policy. 07/02/2024 Abnormality of gait and mobility (ICD-10 - R26.9) 04/16/2025 terminal makeup operator (current) use of opiate analgesic (ICD-10 - Z79.891) 12/10/2024 terminal makeup operator (current) use of opiate analgesic (ICD-10 - Z79.891) 02/12/2025 skilled nursing (current) use of opiate analgesic (ICD-10 - Z79.891) 04/16/2025 Depression screen (ICD-10 - Z13.31) 07/02/2024 terminal makeup operator (current) use of opiate analgesic (ICD-10 - Z79.891) 07/02/2024 Other Nima, Haile Dempsey, am scribing for Luis Enrique Mcrae. I, Luis Enrique Mcrae, personally performed the services described in this documentation , as scribed by Haile Dempsey, and it is both accurate and complete. 12/10/2024 Other Nima, NOAH Vergara, am scribing for Dr. Luis Enrique Mcrae. I, Dr. Luis Enrique Mcrae, personally performed the services described in this documentation, as scribed by NOAH Vergara , and it is both accurate and complete. Plan Of Treatment Next Appt Details Provider Name:Magda Tati acuna, 06/11/2025 10:40:00 AM, [address] [place], [address], Insurance Providers Payer Name Payer Address Payer Phone Subscriber Number Group Number Insured Name Patient Relationship to Insured Coverage Start Date Coverage End Date [employer] PPO [address] [address] [place] [address] [id number] Mary Peterson Self - patient is the insured Medications Administered Medication Instructions Date of Administration Dosage Notes Albuterol/ipratropium 2.5/0.5 09/11/2019 Depo-Medrol/Methylprednisolo ne per 40mg 07/28/2020 given in neck DEPO-Medrol 10/20/2021 80 mg dexAMETHasone 02/10/2021 2 mg Medical (General) History Medical History History ICD Code Congestive heart failure Hypertension Bradycardia Hypercholesterolemia Osteopenia Type 2 diabetes Polyp of vocal cord Lumbar spondylarthritis GERD Chronic ischemic bowel syndrome Generalized anxiety disorder Depression Benign essential tremor COPD Emphysema Alopecia areata Abnormal thyroid findings Allergies Hx of rheumatic fever as a child Surgical History Surgery Date(Month/Year) Wrist surgery Varicose vein surgery Knee Surgery Nerve repair; left elbow 05/2015 Nerve repair; right elbow 02/2015 Fracture of wrist 2007 Cholecystectomy 05/2019 nerve repair in both arms Gallbladder surgery Hospitalization History Reason Date(Month/Year)
--- OUTSIDE RECORDS SUMMARY | 2025-05-04 09:41 | XMS_ITS | Clinical Summary ---
Author Organization [facility] [address] [address] Address [address] [place] [address] Care Team Providers Care Ironer Or Presser Name Role Phone Unavailable Primary Care Provider Unavailabl e Allergies No known active allergies Medications blood sugar diagnostic (Exuru!TOUCH ULTRA BLUE TEST STRIP) Strip Check your blood sugar 3 times a day. 100 Each 5 05/24/20 18 Active albuterol HFA 90 mcg inhaler Take 2 Puffs by inhalation every 6 hours as needed for Shortness of Breath. 8.5 Gram 2 07/23/20 18 Active albuterol (PROVENTIL,VENTOLI N) 0.63 mg/3 mL Solution for Nebulization Take 0.63 mg by inhalation one time only. Active SUMAtriptan (Imitrex) 50 mg tabletIndications: Migraine without aura and without status migrainosus, not intractable Take 1 Tablet (50 mg) by mouth every 2 hours as needed for Headaches. may repeat in 2 hours; max dose 200mg in 24 hours 30 Tablet 1 04/05/20 Active cefUROXime axetil (CEFTIN) 500 mg tablet TAKE ONE TABLET BY MOUTH EVERY TWELVE HOURS FOR 5 DAYS Active fluticasone propionate (FLONASE) 50 mcg/spray [place], Suspension nasal inhaler USE 2 SPRAYS IN EACH NOSTRIL ONCE DAILY Active prochlorperazine maleate (COMPAZINE) 5 mg tablet TAKE ONE TABLET BY MOUTH THREE TIMES DAILY 05/23/20 22 Active Spiriva with HandiHaler 18 mcg capsule 05/23/20 22 Active topiramate (TOPAMAX) 100 mg tablet 1 Tablet. 07/04/20 21 Active dicyclomine (BENTYL) 20 mg tabletIndications: Irritable bowel syndrome with diarrhea Take 1 Tablet (20 mg) by mouth 4 times daily before meals and at bedtime. 120 Tablet 3 06/01/20 22 Active gabapentin (NEURONTIN) 300 mg capsuleIndications :Chronic bilateral low back pain without sciatica,RLS (restless legs syndrome) TAKE TWO CAPSULES BY MOUTH DAILY AT BEDTIME 90 Capsule 1 06/20/20 22 Active cetirizine (ZyrTEC) 10 mg tabletIndications: Seasonal allergic rhinitis due to other allergic trigger Take 1 Tablet (10 mg) by mouth daily. Needs appointment for further refills 60 Tablet 03/22/20 23 Active rOPINIRole (REQUIP) 0.5 mg tabletIndications: RLS (restless legs syndrome) TAKE ONE TABLET BY MOUTH DAILY AT BEDTIME 90 Tablet 3 03/22/20 23 Active pravastatin (PRAVACHOL) 80 mg tabletIndications: Mixed hyperlipidemia TAKE ONE TABLET BY MOUTH DAILY WITH SUPPER - NEEDS APPOINTMENT FOR FURTHER REFILLS 30 Tablet 05/21/20 23 Active fluticasone-umecli dinium-vilanterol (Trelegy Ellipta) 100-62.5-25 mcg Disk with DeviceIndications: Mixed simple and mucopurulent chronic bronchitis (CMS/HCC) USE 1 INHALATION INTO LUNGS DAILY - NEEDS APPOINTMENT FOR FURTHER REFILLS 1 Each 05/21/20 23 Active traZODone (DESYREL) 50 mg tabletIndications: Primary insomnia TAKE ONE TABLET BY MOUTH DAILY AT BEDTIME 30 Tablet 05/21/20 23 Active alendronate (FOSAMAX) 70 mg tabletIndications: Age-related osteoporosis without current pathological fracture TAKE ONE TABLET BY MOUTH EVERY 7 DAYS - NEEDS APPOINTMENT FOR FURTHER REFILLS 4 Tablet 05/21/20 23 Active cyclobenzaprine (FLEXERIL) 10 mg tabletIndications: Chronic bilateral low back pain without sciatica TAKE ONE TABLET BY MOUTH THREE TIMES DAILY NEEDED FOR SPASM - NEEDS APPOINTMENT FOR FURTHER REFILLS 30 Tablet 05/21/20 23 Active venlafaxine (EFFEXOR XR) 75 mg Extended Release 24 hour capsuleIndications :Moderate episode of recurrent major depressive disorder (CMS/HCC) TAKE TWO CAPSULES BY MOUTH AT NIGHT AND TAKE ONE TABLET DURING THE DAY 90 Capsule 05/21/20 23 Active Active Problems Problem Noted Date Diagnosed Date Irritable bowel syndrome with diarrhea 2 Primary insomnia 04/05/2022 Allergic rhinitis due to allergen 04/05/2022 Osteoporosis without current pathological fractu re 03/20/2018 Overview (04/24/2018): 04/24/18 Stopped her Fosamax. Will need a drug holiday and repeat DEXA in 1 year Type 2 diabetes mellitus wit hout complication, without long-term current use of insulin 03/20/2018 Overview (04/24/2018): 04/24/18 stopped her metformin Assessment & Plan (08/26/2018 1:03 PM RN SOCIAL WORK): Diabetes: Well controlled. Continue current plan of care. Medications reviewed and refilled/adjusted as indicated. See medication orders. Labs ordered/reviewed. Reminded to get yearly retinal exam. Addressed ADA/low CHO diet. Assessment & Plan (07/23/2018 5:22 PM RN SOCIAL WORK): Diabetes: Stable. Continue current plan of care. Addressed ADA/low CHO diet. Pt to monitor blood sugars closely while sick. Chronic obstructive pulmonary disease 03/20/2018 Assessment & Plan (08/26/2018 1:02 PM RN SOCIAL WORK): Uncontrolled. Will treat current exacerbation with levaquin as she did not improve with zpak or augmentin. Encouraged to use mucines daily as well. Will try switching spiriva to incruse to get a better overall control of breathing symptoms. Moderate episode of recurrent major depressive d isorder 03/20/2018 Overview (08/26/2018): 04/24/18 decreased Effexor from 150 mg a day to 75 mg a day 08/26/18 increased effexor back to 150 mg daily Assessment & Plan (08/26/2018 1:02 PM RN SOCIAL WORK): Status: Major Depression Single episode Moderate - Worsening Plan: Worsening/Not well controlled. Medication initiated/adjusted. See orders. Possible SE and expected onset of action reviewed. Gastroesophageal reflux disease with esophagitis 03/20/2018 Migraine without aura and wi thout status migrainosus, not intractable 03/20/2018 RLS (restless legs syndrome) 03/20/2018 Chronic bilateral low back pain without sciatica 03/20/2018 Assessment & Plan (08/26/2018 1:03 PM RN SOCIAL WORK): Uncontrolled. Will slightly increase quantity of pain meds for this month. We will then need to start decreasing again. Assessment & Plan (07/23/2018 5:23 PM RN SOCIAL WORK): Suboptimal control. Will defer all Rx medications to PCP. Chronic neck pain 03/20/2018 Chronic, continuous use of opioids 03/20/2018 Overview (04/24/2018): 04/24/18 Decrease [place] from 120 pills a month to 100 pills a month Mixed hyperlipidemia 03/20/2018 Tobacco use 03/20/2018 Resolved Problems Problem Noted Date Diagnosed Date Resolved Date Essential hypertension 03/20/201804/24 Immunizations Immunization Administration Dates Next Due (ADACEL/BOOSTRIX)(10 YR UP) TDAP VACCINE, 0.5ML, IM 04/24/2018 INFLUENZA VACCINE QUADRIVALENT 6 MOS UP PF IM Family History Medical History Relation Name Comments Lung Cancer Brother Heart Disease Daughter Cancer Father Diabetes Father Heart Disease Father Unknown Maternal Grandfather Diabetes Maternal Grandmother Diabetes Mother Hypertension Mother Cancer Paternal Grandfather Healthy Paternal Grandmother Kidney Disease Sister Healthy Son Relation Name Status Comments Brother Daughter Father Maternal Grandfather Maternal Grandmother Mother Paternal Grandfather Paternal Grandmother Sister Son Social History Tobacco Use Types Packs/Day Years Used Date Smoking Tobacco: Every Day Cigarettes 1 44 Smokeless Tobacco: Never Alcohol Use Standard Drinks/Week Comments No 0 (1 standard drink = 0.6 oz pur e alcohol) Financial Resource Strain Answer Date R ecorded How hard is it for you to pa y for the very basics like food, housing, medical care, and heating? Not hard at all 06/01/2022 Food Insecurity Answer Date Recorded In the past 12 months, have you worried that your food would run out before you had money to buy more? Never true 06/01/2022 In the past 12 months, did y ou run out of food and didn't have money to buy more? Never true 06/01/2022 Transportation Needs Answer Date Record ed In the past 12 months, has l ack of transportation kept you from medical appointments or from getting medications? No 06/01/2022 Lack of Transportation (Non-Medical) Not on file 06/01/2022 Comments No Sex and Gender Information Value Date Recorded Sex Assigned at Not on file Legal Sex Female 9:32 AM CDT Gender Identity Not on file Sexual Orientation Not on file Occupation Industry Job Start Date Job End Date Not on file Not on file Not on file Not on file Last Filed Vital Signs Vital Sign Reading Time Taken Comments Blood Pressure 155/78 06/01/2022 1:06 PM CDT Pulse 79 06/01/2022 1:06 PM CDT Temperature 37.2 C (98.9 F) 06/01/2022 1:06 PM CDT Respiratory Rate 17 06/01/2022 1:06 PM CDT Oxygen Saturation 96% 06/01/2022 1:06 PM CDT Inhaled Oxygen Concentration - - Weight 46.7 kg (103 lb) 06/01/2022 1:06 PM CDT Height 162.6 cm (5' 4 ) 06/01/2022 1:06 PM CDT Body Mass Index 17.68 06/01/2022 1:06 PM CDT Plan of Treatment Health Maintenance Due Date Last Done Comments DIABETES ANNUAL FOOT EXAM 1971 DIABETES ANNUAL RETINAL EXAM 1971 PNEUMOCOCCAL VACCINE 50+ YEA RS (1 of 2 - PCV) 1972 BREAST CANCER SCREENING 1993 FIT-DNA Q 3 years 1998 FIT/FOBT Q 1 year 1998 Flex Sig/CT Colonography Q 5 years 1998 ZOSTER VACCINE (1 of 2) 2003 RSV VACCINE (60+ or ) (1 - Risk 60-74 years 1-dose series) 2013 OSTEOPOROSIS SCREENING 2018 DIABETES MICROALBUMIN ANNUAL SCREEN 08/26/201908/26 DIABETES HBA1C Q 6 MONTHS 10/03/2022 04/05/2022, LDL CHOLESTEROL ANNUAL 04/05/2023 04/05/2022, 2018 INFLUENZA VACCINE (#1) 2025 04/24/2018 DTAP/TDAP/TD VACCINES (2 - Td or Tdap) 04/24/2028 COLORECTAL SCREENING 05/19/2029 05/19/2019 Colorectal Cancer Screening 05/19/2029 Procedures Procedure Name Priority Date/Time Associated Diagnosis Comments LIPID PANEL Routine 04/05/2022 10:56 AM CDT Type 2 diabetes mellitus without complication, without long-term current use of insulin ([facility]) Mixed hyperlipidemia HEMOGLOBIN A1C Routine 04/05/2022 10:56 AM CDT Type 2 diabetes mellitus without complication, without long-term current use of insulin ([facility]) ENDOSCOPY, COLON, SCREENING Routine 05/19/2019 MICROALBUMIN/CREATI NINE RATIO, RANDOM UR Routine 08/26/2018 11:37 AM RN SOCIAL WORK Type 2 diabetes mellitus without complication, without long-term current use of insulin ([facility]) from Last 3 Months or Most Recently Relevant to Health Maintenance Results * HEMOGLOBIN A1C (04/05/2022 10:56 AM CDT) HEMOGLOBIN A1C 5.3 <5.7 % of total Hgb [facility] Comment: For the purpose of screening for the presence of diabetes: <5.7% Consistent with the absence of diabetes 5.7-6.4% Consistent with increased risk for diabetes (prediabetes) > or =6.5% Consistent with diabetes This assay result is consistent with a decreased risk of diabetes. Currently, no consensus exists regarding use of hemoglobin A1c for diagnosis of diabetes in children. According to [place] [employer] (ADA) guidelines, hemoglobin A1c <7.0% represents optimal control in non- diabetic patients. Different metrics may apply to specific patient populations. Standards of Medical Care in Diabetes(ADA). ESTIMATED AVERAGE GLUCOSE (MG/DL) 105 mg/dL [facility] ESTIMATED AVERAGE GLUCOSE (MMOL/L) 5.8 mmol/L [facility] Comment: Test Performed at: [facility] [address] [place] [address] Mik Subramanian D.O., MPH Blood 04/05/2022 10:5 6 AM CDT 04/06/2022 3:17 AM CDT Wojciech Arechiga [facility] CHEMISTRY ORDERABLES Final Result Performing Organization Address [facility]/ZIP Co de Phone Number [facility] [phone] [facility] [facility] [address] [facility] [place] [address] * LIPID PANEL (04/05/2022 10:56 AM CDT) CHOLESTEROL 154 <200 mg/dL [facility] HDL 55 > OR = 50 mg/dL [facility] TRIGLYCERIDE 101 <150 mg/dL [facility] LDL CALCULATED 81 mg/dL (calc) [facility] Comment: Reference range: <100 Desirable range <100 mg/dL for primary prevention; <70 mg/dL for patients with CHD or diabetic patients with > or = 2 CHD risk factors. LDL-C is now calculated using the Noah calculation, which is a validated novel method providing better accuracy than the Friedewald equation in the estimation of LDL-C. Lester TANNER et al. MICHELE. 2013;310(19): 3194-1446 (http://education.[employer]/faq/XDB258) CHOL/HDL RATIO 2.8 <5.0 (calc) [facility] TOTAL NON-HDL CHOL(LDL+VLDL) 99 <130 mg/dL (calc) [facility] Comment: For patients with diabetes plus 1 major ASCVD risk factor, treating to a non-HDL-C goal of <100 mg/dL (LDL-C of <70 mg/dL) is considered a therapeutic option. Test Performed at: [facility] [address] [place], [place] [address] [address] Mik Subramanian D.O., MPH Blood 04/05/2022 10:5 6 AM CDT 04/06/2022 3:17 AM CDT Wojciech Arechiga [facility] CHEMISTR[facility] ORDERABLES Final Result Performing Organization Address City/[facility]/ZIP Co de Phone Number [facility] [phone] [facility] [id number] [place] [phone] * ENDOSCOPY, COLON, SCREENING (05/19/2019) us Abstract Provider GI PROCEDURE ORDERABLES Final Result * (ABNORMAL) MICROALBUMIN/CREATININE RATIO, RANDOM UR (08/26/2018 11:37 AM RN SOCIAL WORK) MICROALBUMIN, URINE <1.2 No Reference Range mg/dL 08/26/2018 5:11 PM [facility] [employer] [facility] CREATININE, URINE 22.5(L) 29.0 - 226.0 mg/dL 08/26/2018 5:11 PM RN SOCIAL WORK [facility] [employer] [facility] Comment: Reference Range varies with fluid intake and diet. Urine URINE SPECIMEN OBTAINED BY CLEAN CATCH PROCEDURE / Unknown Collection / Unknown 08/26/2018 11:37 AM RN SOCIAL WORK 08/26/2018 4:09 PM RN SOCIAL WORK Narrative [facility] [employer] [facility] - 08/26/2018 5:11 PM RN SOCIAL WORK Condition Microalbumin/Creat ratio Normal Males <17 Normal Females <25 Microalbuminuria Males 17-299 Microalbuminuria Females 25-299 Overt proteinuria >=300 Unable to calculate urine microalbumin/creatinine ratio because urine microalbumin result is outside of reportable range. Lang Plunkett DO URINE ORDERABLES Final Resu lt [facility] [employer] [facility] CLIA# [id number] [address] [place] [address] from Last 3 Months or Most Recently Relevant to Health Maintenance Insurance [facility] [id number]
--- NOTE | 2025-05-04 09:46 | XR_ITS ---
WS: [id number] XR chest 1V portable [id number] REASON FOR EXAM: dyspnea/cough FINDINGS: The chest is unchanged compared to 03/13/2025. There are findings of obstructive lung disease with central lobar emphysema and hyperexpansion. No acute pulmonary parenchymal or pleural abnormality is identified. XR/XR chest 1V portable [id number] IMPRESSION: Stable abnormal chest as above. No acute abnormality.
--- NOTE | 2025-05-04 09:47 | ECG_ITS ---
[facility] 2025-[facility]04 Pat Name: Mary Peterson Department: Room: Gender: Female Security Orderly: : 1955 Requested By: Wayne Jones Order Number: [id number] Marielle MD: Mikhail Miranda M.D. Measurements Intervals [place] Rate: 63 P: 95 OK: 144 QRS: 93 QRSD: 88 T: 87 QT: 433 QTc: 444 Interpretive Statements SINUS RHYTHM WITH OCCASIONAL SUPRAVENTRICULAR PREMATURE COMPLEXES BORDERLINE RIGHT AXIS DEVIATION [QRS AXIS > 90] Compared to ECG 03/31/2015 06:29:27 Sinus bradycardia no longer present Electronically Signed On 05-07-2025 08:50:33 CDT by Mikhail Miranda M.D. [email or web address]
--- NOTE | 2025-05-04 09:47 | ECG_ITS ---
[email or web address] Test Date: 2025-05-04 Pat Name: Mary Peterson Department: Room: Gender: Female Machine Clothing Replacer: : 1955 Requested By: Wayne Jones Order Number: [id number] Marielle MD: Mikhail Miranda M.D. Measurements Intervals [place] Rate: 78 P: 83 AR: 136 QRS: 92 QRSD: 86 T: 84 QT: 420 QTc: 479 Interpretive Statements SINUS RHYTHM WITH FREQUENT VENTRICULAR PREMATURE COMPLEXES BORDERLINE RIGHT AXIS DEVIATION [QRS AXIS > 90] MINIMAL VOLTAGE CRITERIA FOR LVH, CONSIDER NORMAL VARIANT [MEETS CRITERIA IN ONE OF: R(aVL), S(V1), R(V5), R(V5/V6)+S(V1)] Compared to ECG 03/31/2015 06:29:27 Ventricular premature complex(es) now present Sinus bradycardia no longer present Electronically Signed On 05-07-2025 08:50:48 CDT by Mikhail Miranda M.D. [email or web address]
--- NOTE | 2025-05-04 09:49 | W.ED.SOB ---
HPI - SOB/Dyspnea General: Chief Complaint: Shortness of Breath/Dyspnea Stated Complaint: Sob Time Seen by Provider: 05/04/25 09:46 History of Present Illness: HPI Narrative: 69-year-old female presents emergency room complaining of shortness of breath she been sick for about the last 3 to 4 days increasing productive cough productive cough with yellow sputum no hemoptysis. Low-grade subjective fever. No chest pain. Has history of COPD and is a smoker. No history of DVT or PE Associated symptoms: Reports chest congestion; Deny abdominal pain, chest pain or fever(s) Related Data Home Medications ?Medication ?Instructions ?Recorded ?Confirmed cetirizine 10 mg tablet 10 mg PO DAILY 05/04/25 05/04/25 cyclobenzaprine 10 mg tablet 10 mg PO TID 05/04/25 05/04/25 dexlansoprazole 60 mg 60 mg PO DAILY 05/04/25 05/04/25 capsule,biphase delayed release hydrocodone 10 mg-acetaminophen 1 tab PO Q6H PRN Pain 05/04/25 05/04/25 325 mg tablet pravastatin 80 mg tablet 80 mg PO QPM 05/04/25 05/04/25 ropinirole 1 mg tablet 1 mg PO BID 05/04/25 05/04/25 trazodone 50 mg tablet 50 mg PO BEDTIME 05/04/25 05/04/25 Previous Rx's ?Medication ?Instructions ?Recorded oxygen 2L via NC #1 ea 02/05/23 ergocalciferol (vitamin D2) 1,250 1,250 mcg PO .weekly #12 caps 10/27/24 mcg (50,000 unit) capsule pregabalin 75 mg capsule 75 mg PO BID #60 caps 01/16/25 denosumab 60 mg/mL subcutaneous 60 mg SUBCUT .q 6mo #1 mL 03/13/25 syringe (Prolia) fluticasone furoate 200 1 inh inhalation DAILY #60 ea 03/13/25 mcg-vilanterol 25 mcg/dose inhalation powder (Breo Ellipta) tiotropium bromide 18 mcg capsule 1 cap inhalation DAILY #60 03/13/25 with inhalation device (Spiriva inhalations with HandiHaler) venlafaxine 75 mg capsule,extended See Rx Instructions .Route 03/13/25 release 24 hr .COMPLEX #270 caps Allergies Allergy/AdvReac Type Severity Reaction Status Date / Time No Known Allergies Allergy Verified 03/19/25 11:03 Review of Systems Const: Denies: fever(s) or chills Card: Denies: chest pain Resp: Reports: dyspnea, productive cough, wheezing and chest congestion GI: Denies: abdominal pain : Denies: dysuria, urinary frequency or urinary urgency Musc: Denies: neck pain or back pain Skin/Breast: Denies: rash PFSH ED PFSH: Medical History Enrolled in chronic care management HTN (hypertension) Hyperlipidemia COPD (chronic obstructive pulmonary disease) Surgical History Hx of cholecystectomy History of surgery on left wrist History of vocal cord polypectomy Social History Smoking and tobacco/nicotine status: current every day tobacco/nicotine user (smokes cigarettes) cigarettes Packs smoked per day: 1 Years cigarettes smoked: 45 [ Other cigarette details: Started at age 23] Alcohol intake: never Substance/Drug Use: never Lives independently: Yes Household members: significant other Marital status: / Current occupational status: retired Do you think of yourself as: Straight/Heterosexual Current gender identity: Female Physical Exam Const: GENERAL APPEARANCE: cooperative ORIENTATION/CONSCIOUSNESS: Yes awake, Yes oriented to person, Yes oriented to place and Yes oriented to time HENMT: COMMON NORMALS: normocephalic, atraumatic and hearing grossly normal bilaterally HEAD & SCALP: normocephalic and atraumatic Resp: EFFORT & INSPECTION: Yes tachypneic, Yes pursed lip breathing and Yes uses accessory muscles AUSCULTATION: rhonchi and wheezes Cardio: COMMON NORMALS: regular rate, regular rhythm and No murmurs present (Cardio) RATE: regular rate RHYTHM: regular rhythm GI: COMMON NORMALS: Soft to palpation and No hepatosplenomegaly present AUSCULTATION: Yes normoactive bowel sounds PALPATION: Yes Soft to palpation, No Tenderness to palpation present (GI), No Guarding due to palpation present (GI) and Yes No hepatosplenomegaly present Extremity: COMMON NORMALS: normal to inspection, capillary refill normal, no clubbing, cyanosis or edema, no calf tenderness and no pedal edema Neuro: SENSORIUM/ORIENTATION: Yes oriented to person, Yes oriented to place and Yes oriented to time Skin: COMMON NORMALS: no rashes or lesions noted GENERAL SKIN EXAM: no rashes or lesions noted Course Vital Signs: Vital signs: Vital Signs Temperature 98.2 F 05/04/25 16:01 Pulse Rate 77 05/04/25 16:01 Respiratory Rate 22 H 05/04/25 16:01 Blood Pressure 122/66 05/04/25 16:01 Pulse Oximetry 95 05/04/25 16:01 Oxygen Delivery Me thod Nasal Cannula 05/04/25 16:01 Oxygen Flow Rate 3 05/04/25 16:01 Fraction of Inspir ed Oxygen 30 05/04/25 12:07 MDM - SOB/Dyspnea Medical Decision Making Acute exacerbation COPD with a productive cough. Will start on IV antibiotics continue IV steroids oxygen supplementation aggressive pulmonary toilet. We are also trying her on BiPAP however she is not tolerating well she is given Ativan for anxiety. Discussed with hospitalist orders written Lab Data 05/04/25 10:25 05/04/25 10:25 Labs/Radiology: Radiology Impressions Chest X-Ray 05/04/25 09:46 IMPRESSION: Stable abnormal chest as above. No acute abnormality. Chest CTA 05/04/25 11:42 IMPRESSION: 1. No pulmonary embolism. 2. Dilated pulmonary artery. 3. Severe emphysema. 4. New areas of consolidation in the RIGHT middle lobe with scattered small spiculated opacifications in the periphery of the RIGHT lower lobe. Consider endobronchial pneumonia. Aspiration pneumonia may appear similar. 5. Bilateral hilar enlarged lymph nodes. These may be reactive. 6. Medial LEFT upper lobe bronchial thickening with bronchiectasis is chronic. Laboratory Results WBC 10.23 10^3/uL (3.29-11.43) 05/04/25 10:25 RBC 3.96 10^6/uL (3.85-5.65) 05/04/25 10:25 Hgb 12.50 g/dL (11.27-16.99) 05/04/25 10:25 Hct 38.7 % (36-47) 05/04/25 10:25 MCV 97.7 fl (85-98) 05/04/25 10:25 MCH 31.6 pg (27-33) 05/04/25 10:25 MCHC 32.3 g/dL (30-55) 05/04/25 10:25 RDW 12.4 % (12.1-15.1) 05/04/25 10:25 Plt Count 195 10^3/cmm (157-399) 05/04/25 10:25 MPV 9.4 fL (7.4-10.4) 05/04/25 10:25 Neut % (Auto) 79.7 % 05/04/25 10:25 Lymph % (Auto) 13.3 % 05/04/25 10:25 [place] % (Auto) 6.1 % 05/04/25 10:25 Eos % (Auto) 0.3 % 05/04/25 10:25 Baso % (Auto) 0.3 % 05/04/25 10:25 Neut # (Auto) 8.16 10^3/uL (1.8-7.7) H 05/04/25 10:25 Lymph # (Auto) 1.4 10^3/uL (0.8-4.8) 05/04/25 10:25 [place] # (Auto) 0.6 10^3/uL (0.2-0.9) 05/04/25 10:25 Eos # (Auto) 0.0 10^3/uL (0.0-0.8) 05/04/25 10:25 Baso # (Auto) 0.0 10^3/uL (0.0-0.1) 05/04/25 10:25 Nucleated RBC % (auto) 0 % 05/04/25 10:25 Nucleated RBCs # 0.0 /100WBC 05/04/25 10:25 Specimen Type Arterial 05/04/25 10:58 Sample Site Radial, right 05/04/25 10:58 ABG pH 7.37 (7.35-7.45) 05/04/25 10:58 ABG pCO2 55.8 mmHg (35-45) H 05/04/25 10:58 ABG pO2 88.3 mmHg (80.0-100.0) 05/04/25 10:58 ABG PO2/FiO2 Ratio 275 05/04/25 10:58 ABG HCO3 32.3 mmol/L (22-26) H 05/04/25 10:58 ABG O2 Saturation 97.1 05/04/25 10:58 ABG Base Excess 5.5 mmol/L (-2.0-2.0) H 05/04/25 10:58 Patrick Test Pos 05/04/25 10:58 A-a O2 Gradient 9.5 mmHg (5-10) 05/04/25 10:58 Hematocrit 39.4 % (37-47) 05/04/25 10:58 Hgb O2 Saturation 95.8 % (95-100) 05/04/25 10:58 Carboxyhemoglobin 1.1 %THgb (0.4-20.1) 05/04/25 10:58 Methemoglobin 0.2 % (0.4-1.5) L 05/04/25 10:58 Total Hemoglobin 12.9 g/dL (12-16) 05/04/25 10:58 Sodium 140.0 mmol/L (131-143) 05/04/25 10:58 Potassium 3.9 mmol/L (3.5-5.0) 05/04/25 10:58 Glucose 119.0 mg/dL (70-115) H 05/04/25 10:58 Ionized Calcium 1.1 mmol/L (1.1-1.4) 05/04/25 10:58 O2 Delivery Device Nc 05/04/25 10:58 O2 Liters/Min 3.0 % 05/04/25 10:58 FiO2 32.0 % 05/04/25 10:58 Family Independence Case Manager ID [place] 05/04/25 10:58 Sodium 142 mmol/L (136-145) 05/04/25 10:25 Potassium 4.2 mmol/L (3.5-5.1) 05/04/25 10:25 Chloride 102 mmol/L (98-107) 05/04/25 10:25 Carbon Dioxide 31 mmol/L (22-29) H 05/04/25 10:25 Anion Gap 13.2 (5-19) 05/04/25 10:25 BUN 10 mg/dL (8-23) 05/04/25 10:25 Creatinine 0.5 mg/dL (0.5-0.9) 05/04/25 10:25 GFR Calculation Not Reportable 05/04/25 10:25 Glucose 121 mg/dL (65-115) H 05/04/25 10:25 Calculated Osmolality 294 mOsm/kg (285-295) 05/04/25 10:25 Lactic Acid 0.6 mmol/L (0.5-2.2) 05/04/25 10:25 Calcium 8.6 mg/dL (8.5-10.5) 05/04/25 10:25 Total Bilirubin 0.3 mg/dL (0.15-1.2) 05/04/25 10:25 AST 15 U/L (0-32) 05/04/25 10:25 ALT 9 U/L (0-33) 05/04/25 10:25 Alkaline Phosphatase 49 U/L (35-105) 05/04/25 10:25 C-Reactive Protein 24.6 mg/L (0.0-4.9) H 05/04/25 10:25 Total Protein 6.9 g/dL (6.6-8.7) 05/04/25 10:25 Albumin 3.9 g/dL (3.5-5.2) 05/04/25 10:25 Globulin 3.0 g/dL (1.3-4.6) 05/04/25 10:25 Triglycerides 79 mg/dL (0-150) 05/04/25 10:25 Cholesterol 119 mg/dL (0-200) 05/04/25 10:25 LDL Cholesterol, Calc 66 mg/dL (50-129) 05/04/25 10:25 HDL Cholesterol 37 mg/dL (60-100) L 05/04/25 10:25 LDL/HDL Ratio 1.78 RATIO (0.00-3.22) 05/04/25 10:25 Cholesterol/HDL Ratio 3.22 mg/dL (0.0-4.40) 05/04/25 10:25 Procalcitonin 0.04 ng/mL (0-0.5) 05/04/25 10:25 TSH 0.37 uIU/mL (0.27-4.20) 05/04/25 10:25 Influenza A (PCR) Negative (Negative) 05/04/25 11:09 Influenza Type B (PCR) Negative (Negative) 05/04/25 11:09 RSV (PCR) Negative (Negative) 05/04/25 11:09 SARS-CoV-2 (PCR) Negative (Negative) 05/04/25 11:09 All radiology interpretation(s) finalized by discharge Discharge Plan Discharge Patient Disposition: Admitted As Inpatient Admit Provider: Donis Rojo Clinical Impression: Acute exacerbation of chronic obstructive airways disease Condition: Stable Coding Level of Care 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
[2025-05-04 10:42] LABS: Hematocrit 38.7 % (36-47); Hemoglobin 12.50 g/dL (11.27-16.99); Mean Corpuscular HGB Conc 32.3 g/dL (30-55); Mean Corpuscular Hemoglobin 31.6 pg (27-33); Mean Corpuscular Volume 97.7 fl (85-98); Nucleated Red Blood Cells % 0 %; Platelet Count 195 10^3/cmm (157-399); Red Blood Count 3.96 10^6/uL (3.85-5.65); White Blood Count 10.23 10^3/uL (3.29-11.43)
[2025-05-04 11:00] LABS: Lactic Sepsis W/Reflex 0.6 mmol/L (0.5-2.2)
[2025-05-04 11:03] LABS: Alanine Aminotransferase 9 U/L (0-33); Albumin Level 3.9 g/dL (3.5-5.2); Alkaline Phosphatase 49 U/L (35-105); Anion Gap 13.2 (5-19); Aspartate Amino Transferase 15 U/L (0-32); Blood Urea Nitrogen 10 mg/dL (8-23); Calcium 8.6 mg/dL (8.5-10.5); Carbon Dioxide 31 mmol/L (22-29); Chloride 102 mmol/L (98-107); Creatinine Clr Calc Pharmacy 44.8000; Globulin 3.0 g/dL (1.3-4.6); Glucose 121 mg/dL (65-115); Osmolality Calculated 294 mOsm/kg (285-295); Potassium 4.2 mmol/L (3.5-5.1); Sodium 142 mmol/L (136-145); Total Protein 6.9 g/dL (6.6-8.7)
[2025-05-04 11:11] LABS: ABG PCO2 55.8 mmHg (35-45); ABG PH Result 7.37 (7.35-7.45); Alveolar-Arterial Oxygen Gradi 9.5 mmHg (5-10); Arterial Blood Gas Hematocrit 39.4 % (37-47); Blood Gas Allen Test Pos; Blood Gas LPM 3.0 %; Blood Gas Operator Identificat MONRO; Blood Gas Sample Site Radial, right; Blood Gas Sample Type Arterial; Carboxyhemoglobin 1.1 %THgb (0.4-20.1); Glucose Level-ABG 119.0 mg/dL (70-115); HCO3 ABG 32.3 mmol/L (22-26); Ionized Calcium Level - ABG 1.1 mmol/L (1.1-1.4); Methemoglobin 0.2 % (0.4-1.5); Oxygen Saturation ABG 97.1; PO2 ABG 88.3 mmHg (80.0-100.0); PO2 FiO2 Ratio Arterial Blood 275; Potassium Level - ABG 3.9 mmol/L (3.5-5.0); Sodium Level - ABG 140.0 mmol/L (131-143)
[2025-05-04] MEDS: cefTRIAXone 1,000 mg SDV 1000 MG IVP (11:14)
[2025-05-04] MEDS: methylPREDNISolone sod succ 125 mg/2 mL INJ IVP (11:14)
--- NOTE | 2025-05-04 11:42 | CT_ITS ---
WS: [id number] CT CHEST ANGIOGRAPHY WITH REFORMATS HISTORY: SOB TECHNIQUE: Contiguous axial images are obtained through the chest during arterial injection of intravenous contrast. Images are reconstructed to evaluate the pulmonary arteries. MIP imaging also reviewed. All CT scans at [facility] use at least one of these dose optimization techniques: automated exposure control; mA and/or kV adjustment per patient size (includes targeted exams where dose is matched to clinical indication); or iterative reconstruction. CONTRAST: Omnipaque 350; 100 mL IV. DLP: 133.51 mGy.cm COMPARISON: 04/17/2024 Good contrast opacification of the pulmonary arteries. Pulmonary artery is dilated. No pulmonary emboli. Mild ectasia and atherosclerosis thoracic aorta. No RIGHT heart strain. Cardiac size is slightly enlarged. Severe emphysema. New diffuse interstitial thickening in both lungs. LEFT upper lobe granuloma. New areas of opacification noted bilaterally. New irregular opacification anterior RIGHT middle lobe. New wedge-shaped consolidation anterior RIGHT middle lobe. Scattered slightly spiculated small opacifications in the periphery RIGHT lower lobe. Chronic bronchiectasis with bronchial wall thickening medial LEFT upper lobe. Dense atherosclerotic plaque within the thoracic aorta extending into the great vessels. Bilateral hilar enlarged lymph nodes. RIGHT hilar lymph node is 1.6 cm. LEFT hilar lymph node indeterminate at 1.1 cm. Dense atherosclerotic calcification suprarenal aorta. Increase in thoracic kyphosis. No destructive bone lesions. CT/CT angio chest PE protcl [id number] IMPRESSION: 1. No pulmonary embolism. 2. Dilated pulmonary artery. 3. Severe emphysema. 4. New areas of consolidation in the RIGHT middle lobe with scattered small sp iculated opacifications in the periphery of the RIGHT lower lobe. Consider endo bronchial pneumonia. Aspiration pneumonia may appear similar. 5. Bilateral hilar enlarged lymph nodes. These may be reactive. 6. Medial LEFT upper lobe bronchial thickening with bronchiectasis is chronic.
[2025-05-04] MEDS: LORazepam 1 MG/0.5 ML injection IVP ×2 (11:48→15:46)
--- NOTE | 2025-05-04 12:05 | PM.HP ---
Providers/Chief Complaint Admitting Physician: Donis Rojo MD Primary Care Provider: CHARLES Keenan Chief Complaint: Sob History of Present Illness Mary Peterson is a 69 year old female with a past medical history of COPD, history of smoking, hypertension, hyperlipidemia, who presents [facility] due to shortness of breath and cough. Currently patient is alert oriented x 3, follow-up commands, she is sitting up, she was not able to tolerate the BiPAP due to shortness of breath, is tachypneic, nasal flaring, intercostal retractions suprasternal retractions, she is short of breath after a few words, reports persistent shortness of breath. Denies any recent travel, no calf pain, calf swelling, no chest pain. No hemoptysis, does report smoking history, denies history of COVID-19 Review of Systems Const: Reports: fatigue and malaise; Denies: fever(s) or chills Card: Denies: chest pain Resp: Reports: dyspnea and non-productive cough GI: Denies: abdominal pain : Denies: flank pain Neuro: Denies: headache(s) Medications/Allergies Home Medications ?Medication ?Instructions ?Recorded ?Confirmed ?Last Taken ?Type oxygen 2L via NC #1 ea 02/05/23 05/04/25 Unknown Rx ergocalciferol (vitamin D2) 1,250 1,250 mcg PO .weekly #12 caps 10/27/24 05/04/25 Unknown Rx mcg (50,000 unit) capsule pregabalin 75 mg capsule 75 mg PO BID #60 caps 01/16/25 05/04/25 Unknown Rx denosumab 60 mg/mL subcutaneous 60 mg SUBCUT .q 6mo #1 mL 03/13/25 05/04/25 03/19/25 Rx syringe (Prolia) fluticasone furoate 200 1 inh inhalation DAILY #60 ea 03/13/25 05/04/25 05/04/25 Rx mcg-vilanterol 25 mcg/dose inhalation powder (Breo Ellipta) tiotropium bromide 18 mcg capsule 1 cap inhalation DAILY #60 03/13/25 05/04/25 05/04/25 Rx with inhalation device (Spiriva inhalations with HandiHaler) venlafaxine 75 mg capsule,extended See Rx Instructions .Route 03/13/25 05/04/2505/04/25 Rx release 24 hr .COMPLEX #270 caps cetirizine 10 mg tablet 10 mg PO DAILY 05/04/25 05/04/25 05/04/25 History cyclobenzaprine 10 mg tablet 10 mg PO TID 05/04/25 05/04/25 05/04/25 History dexlansoprazole 60 mg 60 mg PO DAILY 05/04/25 05/04/25 05/04/25 History capsule,biphase delayed release hydrocodone 10 mg-acetaminophen 1 tab PO Q6H PRN Pain 05/04/25 05/04/25 05/04/25 History 325 mg tablet pravastatin 80 mg tablet 80 mg PO QPM 05/04/25 05/04/25 05/03/25 History ropinirole 1 mg tablet 1 mg PO BID 05/04/25 05/04/25 05/04/25 History trazodone 50 mg tablet 50 mg PO BEDTIME 05/04/25 05/04/25 05/03/25 History Allergies Allergy/AdvReac Type Severity Reaction Status Date / Time No Known Allergies Allergy Verified 03/19/25 11:03 PFSH Acute PFSH: Medical History Enrolled in chronic care management HTN (hypertension) Hyperlipidemia COPD (chronic obstructive pulmonary disease) Surgical History Hx of cholecystectomy History of surgery on left wrist History of vocal cord polypectomy Social History Smoking and tobacco/nicotine status: current every day tobacco/nicotine user (smokes cigarettes) cigarettes Packs smoked per day: 1 Years cigarettes smoked: 45 [ Other cigarette details: Started at age 23] Alcohol intake: never Substance/Drug Use: never Lives independently: Yes Household members: significant other Marital status: / Current occupational status: retired Do you think of yourself as: Straight/Heterosexual Current gender identity: Female Vitals/I&O/Wt Last Vital Signs Temp 98.3 F 05/04/25 09:42 Pulse 74 05/04/25 11:20 Resp 20 H 05/04/25 11:20 BP 117/44 05/04/25 11:20 Pulse Ox 98 05/04/25 11:20 O2 Del Method BiPAP 05/04/25 11:20 O2 Flow Rate 3 05/04/25 11:02 FiO2 30 05/04/25 11:15 Weight last 48 hrs Weight 43.998 kg Physical Exam Const: COMMON NORMALS: no acute distress and patient oriented x3 HENMT: COMMON NORMALS: normocephalic HEAD & SCALP: normocephalic Eye: COMMON NORMALS: Equal, round and reactive pupils present Resp: OTHER: Short of breath with few words, tachypnea, tachycardia, nasal flaring, intercostal and suprasternal retractions, belly breathing, wheezing and crackles in all lung bonilla Cardio: COMMON NORMALS: regular rate, regular rhythm, S1 normal heart sound present and S2 normal heart sound present RATE: regular rate RHYTHM: regular rhythm HEART SOUNDS: S1 normal heart sound present and S2 normal heart sound present GI: COMMON NORMALS: Normal to inspection, nondistended, normoactive bowel sounds present, Soft to palpation and non-tender : COMMON NORMALS: Yes no CVA tenderness Extremity: COMMON NORMALS: no calf tenderness and no pedal edema Neuro: COMMON NORMALS: patient oriented x3, CN's II-XII intact bilaterally and moves all extremities Psych: COMMON NORMALS: mental status grossly normal Data 05/04/25 10:25 05/04/25 10:25 Micro: Microbiology 05/04/25 10:31 Blood Culture - Preliminary Blood SPECIMEN COLLECTED 05/04/25 10:25 Blood Culture - Preliminary Blood SPECIMEN COLLECTED A&P Assessment and plan 1. Acute hypoxic respiratory failure: 2. Acute respiratory distress: Plan: Acute hypoxic respiratory failure - With acute respiratory distress syndrome Plan - Will admit to ICU - Monitor respiratory status closely - BiPAP therapy - DuoNeb - Budesonide - Solu-Medrol 40 mg IV every 8 hours - Will consider Precedex for anxiety, claustrophobia with BiPAP - Rocephin - Azithromycin - Full code - Lovenox for DVT prophylaxis PDMP PDMP Reviewed: Last Reviewed 05/04/25 11:48 by Donis Rojo MD Attestations Medical Necessity Statement*: Patient requires hospitalization, inpatient, greater than 2 midnights, for acute hypoxic respiratory failure, with acute respiratory distress requiring ICU admission Diagnoses Acute hypoxic respiratory failure J96.01 Acute respiratory distress R06.03
[2025-05-04 12:07] LABS: Respiratory Syncytial Virus Ce NEGATIVE (Negative); SARS-CoV-2 PCR NEGATIVE (Negative)
[2025-05-04 13:14] LABS: Procalcitonin 0.04 ng/mL (0-0.5); Thyroid Stimulating Hormone 0.37 uIU/mL (0.27-4.20)
[2025-05-04 13:25] LABS: Cholesterol 119 mg/dL (0-200); HDL Cholesterol 37 mg/dL (60-100); Triglycerides 79 mg/dL (0-150)
[2025-05-04] MEDS: pantoprazole 40 mg SDV IVP (13:30)
[2025-05-04] MEDS: iohexol 350 mg/mL 500 mL Btl (per mL) IV (15:08)
[2025-05-04] MEDS: HYDROcodone-acetaminophen 10-325 mg Tablet 1 TAB PO (15:47)
[2025-05-04] MEDS: ATORVASTATIN 20 MG TABLET PO (17:24)
[2025-05-04] MEDS: venlafaxine ER (24HR) 75 mg Capsule 150 MG PO (20:00)
[2025-05-05] VITALS (50 sets, daily range): BP systolic 102–140; BP diastolic 45–85; PULSE 61–88; RESP 11–29; TEMP 36.9–37.3; O2SAT 91–100
[2025-05-05] MEDS: methylPREDNISolone sod succ 40 mg/mL INJ IVP ×3 (04:16→20:53)
[2025-05-05 04:31] LABS: Hematocrit 33.7 % (36-47); Hemoglobin 10.80 g/dL (11.27-16.99); Mean Corpuscular HGB Conc 32.0 g/dL (30-55); Mean Corpuscular Hemoglobin 32.0 pg (27-33); Mean Corpuscular Volume 99.7 fl (85-98); Nucleated Red Blood Cells % 0 %; Platelet Count 184 10^3/cmm (157-399); Red Blood Count 3.38 10^6/uL (3.85-5.65); White Blood Count 9.19 10^3/uL (3.29-11.43)
[2025-05-05 05:06] LABS: Alanine Aminotransferase 8 U/L (0-33); Albumin Level 3.4 g/dL (3.5-5.2); Alkaline Phosphatase 42 U/L (35-105); Anion Gap 14.1 (5-19); Aspartate Amino Transferase 12 U/L (0-32); Blood Urea Nitrogen 11 mg/dL (8-23); Calcium 8.0 mg/dL (8.5-10.5); Carbon Dioxide 29 mmol/L (22-29); Chloride 105 mmol/L (98-107); Creatinine Clr Calc Pharmacy 42.2137; Globulin 2.4 g/dL (1.3-4.6); Glucose 116 mg/dL (65-115); Osmolality Calculated 298 mOsm/kg (285-295); Potassium 4.1 mmol/L (3.5-5.1); Sodium 144 mmol/L (136-145); Total Protein 5.8 g/dL (6.6-8.7)
[2025-05-05 05:10] LABS: NT Pro B Type Natriuretic Pept 672 pg/mL (0-125)
[2025-05-05] MEDS: venlafaxine ER (24HR) 75 mg Capsule PO (09:13)
[2025-05-05] MEDS: HYDROcodone-acetaminophen 10-325 mg Tablet 1 TAB PO ×2 (09:14→15:30)
[2025-05-05] MEDS: cefTRIAXone 1,000 mg SDV 1000 MG IVP (11:23)
[2025-05-05] MEDS: pantoprazole 40 mg SDV IVP (11:23)
--- NOTE | 2025-05-05 13:56 | PC.OT ---
OT evaluation orders received; hold per nursing. Will attempt OT evaluation again at later time.
--- NOTE | 2025-05-05 15:57 | P.PN_ITS ---
Subjective 2 Subjective: Patient was seen this morning, currently alert oriented x 3, following all commands, denies any fevers, chills, cough, no lightheadedness, no dizziness, Vitals/I&O/Wt Last Vital Signs Temp 98.5 F 05/05/25 09:30 Pulse 73 05/05/25 15:30 Resp 16 05/05/25 15:30 BP 112/59 05/05/25 12:00 Pulse Ox 96 05/05/25 15:30 O2 Del Method Nasal Cannula 05/05/25 15:30 O2 Flow Rate 2 05/05/25 15:30 FiO2 30 05/05/25 13:24 05/05/25 05/05/25 05/05/25 06:59 14:59 22:59 Intake Total 898.333 / 4823.406 3429 / 1480 Balance 898.333 / 6687.858 7019 / 1480 Weight last 48 hrs Weight 41.458 kg Weight 39.944 kg Weight 43.998 kg Physical Exam 2 Const: COMMON NORMALS: no acute distress and patient oriented x3 Resp: COMMON NORMALS: normal respiratory effort, No retractions and No use of accessory muscles AUSCULTATION: crackles and wheezes Cardio: COMMON NORMALS: regular rate, regular rhythm, S1 normal heart sound present and S2 normal heart sound present RATE: regular rate RHYTHM: r egular rhythm HEART SOUNDS: S1 normal heart sound present and S2 normal heart sound present GI: COMMON NORMALS: Normal to inspection, nondistended, normoactive bowel sounds present Extremity: COMMON NORMALS: no pedal edema Neuro: COMMON NORMALS: patient oriented x3 Psych: COMMON NORMALS: mental status grossly normal Data 05/05/25 03:53 05/05/25 03:53 Micro: Microbiology 05/04/25 10:31 Blood Culture - Preliminary Blood NEGATIVE TO DATE 05/04/25 10:25 Blood Culture - Preliminary Blood NEGATIVE TO DATE 05/05/25 07:45 Gram Stain - Final Sputum - Expectorated Sputum A&P Assessment and plan 1. Acute hypoxic respiratory failure: 2. Acute respiratory distress: 3. Pneumonia: Plan: Acute hypoxic respiratory failure - With acute respiratory distress syndrome CT/CT angio chest PE protcl [id number] IMPRESSION: 1. No pulmonary embolism. 2. Dilated pulmonary artery. 3. Severe emphysema. 4. New areas of consolidation in the RIGHT middle lobe with scattered small spiculated opacifications in the periphery of the RIGHT lower lobe. Consider endobronchial pneumonia. Aspiration pneumonia may appear similar. 5. Bilateral hilar enlarged lymph nodes. These may be reactive. 6. Medial LEFT upper lobe bronchial thickening with bronchiectasis is chronic. Plan - Will admit to ICU - Monitor respiratory status closely - BiPAP therapy - DuoNeb - Budesonide - Solu-Medrol 40 mg IV every 8 hours - Will consider Precedex for anxiety, claustrophobia with BiPAP - Rocephin - Azithromycin - Full code - Lovenox for DVT prophylaxis PDMP PDMP Reviewed: Last Reviewed 05/04/25 11:48 by Donis Rojo MD Attestations 2 Medical Necessity Statement*: Patient requires hospitalization for acute hypoxic respiratory failure secondary to pneumonia, COPD Diagnoses Acute hypoxic respiratory failure J96.01 Acute respiratory distress R06.03 Pneumonia J18.9
[2025-05-05] MEDS: ATORVASTATIN 20 MG TABLET PO (17:37)
--- NOTE | 2025-05-05 19:37 | ECG_ITS ---
[facility] Test Date: 2025-05-05 Pat Name: Mary Peterson Department: Room: [facility] Gender: Female Certified Neurodiagnostic Technologist: : 1955 Requested By: Destinee Azar Order Number: [id number] Marielle MD: Mikhail Miranda M.D. Measurements Intervals [place] Rate: 64 P: 82 [place]: 150 QRS: 92 QRSD: 93 T: 89 QT: 448 QTc: 464 Interpretive Statements SINUS RHYTHM WITH OCCASIONAL ECTOPIC PREMATURE COMPLEXES BORDERLINE RIGHT AXIS DEVIATION [QRS AXIS > 90] Compared to ECG 05/04/2025 10:01:14 No significant changes Electronically Signed On 05-07-2025 08:38:04 CDT by Mikhail Miranda M.D. [email or web address]
[2025-05-05] MEDS: venlafaxine ER (24HR) 75 mg Capsule 150 MG PO (20:53)
[2025-05-06] VITALS (46 sets, daily range): BP systolic 110–151; BP diastolic 49–103; PULSE 58–96; RESP 14–26; TEMP 36.5–37.2; O2SAT 93–99
[2025-05-06 03:44] LABS: Alanine Aminotransferase 8 U/L (0-33); Albumin Level 3.6 g/dL (3.5-5.2); Alkaline Phosphatase 40 U/L (35-105); Anion Gap 13.3 (5-19); Aspartate Amino Transferase 11 U/L (0-32); Blood Urea Nitrogen 8 mg/dL (8-23); Calcium 7.9 mg/dL (8.5-10.5); Carbon Dioxide 28 mmol/L (22-29); Chloride 108 mmol/L (98-107); Creatinine Clr Calc Pharmacy 42.2137; Globulin 2.5 g/dL (1.3-4.6); Glucose 162 mg/dL (65-115); Osmolality Calculated 302 mOsm/kg (285-295); Potassium 4.3 mmol/L (3.5-5.1); Sodium 145 mmol/L (136-145); Total Protein 6.1 g/dL (6.6-8.7)
[2025-05-06] MEDS: venlafaxine ER (24HR) 75 mg Capsule PO (05:26)
[2025-05-06] MEDS: HYDROcodone-acetaminophen 10-325 mg Tablet 1 TAB PO ×2 (05:26→14:17)
[2025-05-06] MEDS: methylPREDNISolone sod succ 40 mg/mL INJ IVP ×3 (05:27→19:44)
[2025-05-06 08:16] LABS: Hematocrit 33.9 % (36-47); Hemoglobin 10.60 g/dL (11.27-16.99); Mean Corpuscular HGB Conc 31.3 g/dL (30-55); Mean Corpuscular Hemoglobin 31.3 pg (27-33); Mean Corpuscular Volume 100.0 fl (85-98); Nucleated Red Blood Cells % 0 %; Platelet Count 192 10^3/cmm (157-399); Red Blood Count 3.39 10^6/uL (3.85-5.65); White Blood Count 11.28 10^3/uL (3.29-11.43)
--- NOTE | 2025-05-06 09:02 | PC.SOCIAL ---
IMM Update pg 2 of IMM Updated and reviewed w/ patient. Copy provided and copy dated, initialed and placed in chart.
[2025-05-06] MEDS: pantoprazole 40 mg SDV IVP (11:09)
[2025-05-06] MEDS: cefTRIAXone 1,000 mg SDV 1000 MG IVP (11:10)
--- NOTE | 2025-05-06 15:19 | P.PN_ITS ---
Subjective 2 Subjective: Patient seen this morning, no dermatology, no commands, does report cough and shortness of breath Vitals/I&O/Wt Last Vital Signs Temp 99.0 F 05/06/25 07:00 Pulse 96 05/06/25 14:00 Resp 21 H 05/06/25 12:30 BP 123/56 05/06/25 12:30 Pulse Ox 98 05/06/25 12:30 O2 Del Method Nasal Cannula 05/06/25 12:30 O2 Flow Rate 3 05/06/25 12:30 FiO2 3 05/06/25 11:40 05/06/25 05/06/25 05/06/25 06:59 14:59 22:59 Intake Total 1000 / 2730 480 / 480 Output Total 650 / 650 Balance 350 / 2080 480 / 480 Weight last 48 hrs Weight 43.998 kg Weight 41.458 kg Physical Exam 2 Const: COMMON NORMALS: no acute distress and patient oriented x3 Resp: COMMON NORMALS: normal respiratory effort, No retractions, No use of accessory muscles and clear to auscultation bilaterally AUSCULTATION: clear to auscultation bilaterally Cardio: COMMON NORMALS: regular rate, regular rhythm, S1 normal heart sound present and S2 normal heart sound present RATE: regular rate RHYTHM: r egular rhythm HEART SOUNDS: S1 normal heart sound present and S2 normal heart sound present GI: COMMON NORMALS: Normal to inspection, nondistended, normoactive bowel sounds present and non-tender Extremity: COMMON NORMALS: no pedal edema Neuro: COMMON NORMALS: patient oriented x3 Psych: COMMON NORMALS: mental status grossly normal Data 05/06/25 02:58 05/06/25 02:58 Micro: Microbiology 05/05/25 07:45 Gram Stain - Final Sputum - Expectorated Sputum Sputum Culture - Preliminary 05/04/25 10:31 Blood Culture - Preliminary Blood NEGATIVE TO DATE 05/04/25 10:25 Blood Culture - Preliminary Blood NEGATIVE TO DATE A&P Assessment and plan 1. Acute hypoxic respiratory failure: 2. Acute respiratory distress: 3. Pneumonia: Plan: Acute hypoxic respiratory failure - With acute respiratory distress syndrome CT/CT angio chest PE protcl [id number] IMPRESSION: 1. No pulmonary embolism. 2. Dilated pulmonary artery. 3. Severe emphysema. 4. New areas of consolidation in the RIGHT middle lobe with scattered small spiculated opacifications in the periphery of the RIGHT lower lobe. Consider endobronchial pneumonia. Aspiration pneumonia may appear similar. 5. Bilateral hilar enlarged lymph nodes. These may be reactive. 6. Medial LEFT upper lobe bronchial thickening with bronchiectasis is chronic. Plan - move to medr - Monitor respiratory status closely - BiPAP therapy - DuoNeb - Budesonide - Solu-Medrol 40 mg IV every 8 hours - Rocephin - Azithromycin - Full code - Lovenox for DVT prophylaxis PDMP PDMP Reviewed: Last Reviewed 05/04/25 11:48 by Donis Rojo MD Attestations 2 Medical Necessity Statement*: patient requires hospitalization for copd and pna Diagnoses Acute hypoxic respiratory failure J96.01 Acute respiratory distress R06.03 Pneumonia J18.9
--- NOTE | 2025-05-06 17:07 | PC.NURSE ---
Report was called to YUDELKA Hraper in med surge. Patient was transferred with all their belongings. Patient was stable during the transfer.
[2025-05-06] MEDS: ATORVASTATIN 20 MG TABLET PO (18:09)
[2025-05-06] MEDS: venlafaxine ER (24HR) 75 mg Capsule 150 MG PO (20:07)
[2025-05-07] VITALS (10 sets, daily range): BP systolic 122–154; BP diastolic 49–69; PULSE 63–77; RESP 15–18; TEMP 36.8–37; O2SAT 86–98; BMI 16.7
[2025-05-07] MEDS: HYDROcodone-acetaminophen 10-325 mg Tablet 1 TAB PO ×2 (03:35→08:50)
[2025-05-07] MEDS: methylPREDNISolone sod succ 40 mg/mL INJ IVP ×2 (03:35→11:19)
[2025-05-07] MEDS: venlafaxine ER (24HR) 75 mg Capsule PO (04:16)
[2025-05-07 04:45] LABS: Hematocrit 36.9 % (36-47); Hemoglobin 11.50 g/dL (11.27-16.99); Mean Corpuscular HGB Conc 31.2 g/dL (30-55); Mean Corpuscular Hemoglobin 31.7 pg (27-33); Mean Corpuscular Volume 101.7 fl (85-98); Nucleated Red Blood Cells % 0 %; Platelet Count 206 10^3/cmm (157-399); Red Blood Count 3.63 10^6/uL (3.85-5.65); White Blood Count 11.32 10^3/uL (3.29-11.43)
[2025-05-07 05:18] LABS: Alanine Aminotransferase 12 U/L (0-33); Albumin Level 3.6 g/dL (3.5-5.2); Alkaline Phosphatase 46 U/L (35-105); Anion Gap 14.2 (5-19); Aspartate Amino Transferase 14 U/L (0-32); Blood Urea Nitrogen 13 mg/dL (8-23); Calcium 8.3 mg/dL (8.5-10.5); Carbon Dioxide 29 mmol/L (22-29); Chloride 103 mmol/L (98-107); Creatinine Clr Calc Pharmacy 44.8000; Globulin 2.7 g/dL (1.3-4.6); Glucose 143 mg/dL (65-115); Osmolality Calculated 297 mOsm/kg (285-295); Potassium 4.2 mmol/L (3.5-5.1); Sodium 142 mmol/L (136-145); Total Protein 6.3 g/dL (6.6-8.7)
[2025-05-07] MEDS: polyethylene glycol 3350 Pkt 17 gm PO (09:13)
--- NOTE | 2025-05-07 10:42 | P.DS_ITS ---
Discharge Providers Date of Admission: 05/04/25 11:40 Date of Discharge: May 07, 2025 Attending Provider at Admission: Donis Rojo MD Attending Provider at Discharge: Donis Rojo MD Primary Care Provider: CHARLES Keenan Diagnoses at Discharge Discharge Diagnosis 1. Acute hypoxic respiratory failure: 2. Acute respiratory distress: 3. Pneumonia: Reason for Visit Reason for Visit: Sob Hospital Course Hospital Course Mary Peterson is a 69 year old female with a past medical history of COPD, history of smoking, hypertension, hyperlipidemia, who presents [facility] due to shortness of breath and cough. Currently patient is alert oriented x 3, follow-up commands, she is sitting up, she was not able to tolerate the BiPAP due to shortness of breath, is tachypneic, nasal flaring, intercostal retractions suprasternal retractions, she is short of breath after a few words, reports persistent shortness of breath. Denies any recent travel, no calf pain, calf swelling, no chest pain. No hemoptysis, does report smoking history, denies history of COVID-19 Acute hypoxic respiratory failure - With acute respiratory distress syndrome CT/CT angio chest PE protcl [id number] IMPRESSION: 1. No pulmonary embolism. 2. Dilated pulmonary artery. 3. Severe emphysema. 4. New areas of consolidation in the RIGHT middle lobe with scattered small spiculated opacifications in the periphery of the RIGHT lower lobe. Consider endobronchial pneumonia. Aspiration pneumonia may appear similar. 5. Bilateral hilar enlarged lymph nodes. These may be reactive. 6. Medial LEFT upper lobe bronchial thickening with bronchiectasis is chronic. -Patient was admitted to [facility] for shortness of breath, secondary to pneumonia, has received IV antibiotics, IV steroids -Moved out of ICU, to medical floors - Patient overall clinically improved - Will be discharged on prednisone taper, oral antibiotics, with close follow-up with primary care and pulmonary as outpatient Physical Exam Const: COMMON NORMALS: no acute distress and patient oriented x3 Resp: COMMON NORMALS: normal respiratory effort, No retractions, No use of accessory muscles and clear to auscultation bilaterally AUSCULTATION: clear to auscultation bilaterally Cardio: COMMON NORMALS: regular rate, regular rhythm, S1 normal heart sound present and S2 normal heart sound present RATE: regular rate RHYTHM: regular rhythm HEART SOUNDS: S1 normal heart sound present and S2 normal heart sound present GI: COMMON NORMALS: Normal to inspection, nondistended, normoactive bowel sounds present and non-tender Extremity: COMMON NORMALS: no pedal edema Neuro: COMMON NORMALS: patient oriented x3 Psych: COMMON NORMALS: mental status grossly normal Discharge Data Studies Completed and Pending Completed Studies During Hospitalization Category Date Time Status CT angio chest PE protcl [id number] Routine Cat Scan 05/04/25 11:42 Completed XR chest 1V portable [id number] Stat Exams 05/04/25 09:46 Completed Pending at discharge Category Date Time Status Blood Culture Stat Lab 05/04/25 10:31 Results Complete Blood Count w/Auto AM LABS Lab 05/08/25 04:00 Ordered Complete Blood Count w/Auto AM LABS Lab 05/09/25 04:00 Ordered Comprehensive Metabolic Panel AM LABS Lab 05/08/25 04:00 Ordered Comprehensive Metabolic Panel AM LABS Lab 05/09/25 04:00 Ordered Sputum Culture and Gram Stain Stat Lab 05/05/25 07:45 Results Radiology Impressions Chest X-Ray 05/04/25 09:46 IMPRESSION: Stable abnormal chest as above. No acute abnormality. Chest CTA 05/04/25 11:42 IMPRESSION: 1. No pulmonary embolism. 2. Dilated pulmonary artery. 3. Severe emphysema. 4. New areas of consolidation in the RIGHT middle lobe with scattered small spiculated opacifications in the periphery of the RIGHT lower lobe. Consider endobronchial pneumonia. Aspiration pneumonia may appear similar. 5. Bilateral hilar enlarged lymph nodes. These may be reactive. 6. Medial LEFT upper lobe bronchial thickening with bronchiectasis is chronic. Laboratory Results WBC 11.32 10^3/uL (3.29-11.43) 05/07/25 04:16 RBC 3.63 10^6/uL (3.85-5.65) L 05/07/25 04:16 Hgb 11.50 g/dL (11.27-16.99) 05/07/25 04:16 Hct 36.9 % (36-47) 05/07/25 04:16 MCV 101.7 fl (85-98) H 05/07/25 04:16 MCH 31.7 pg (27-33) 05/07/25 04:16 MCHC 31.2 g/dL (30-55) 05/07/25 04:16 RDW 12.7 % (12.1-15.1) 05/07/25 04:16 Plt Count 206 10^3/cmm (157-399) 05/07/25 04:16 MPV 9.5 fL (7.4-10.4) 05/07/25 04:16 Neut % (Auto) 91.5 % 05/07/25 04:16 Lymph % (Auto) 4.9 % 05/07/25 04:16 [place] % (Auto) 3.0 % 05/07/25 04:16 Eos % (Auto) 0.0 % 05/07/25 04:16 Baso % (Auto) 0.1 % 05/07/25 04:16 Neut # (Auto) 10.35 10^3/uL (1.8-7.7) H 05/07/25 04:16 Lymph # (Auto) 0.6 10^3/uL (0.8-4.8) L 05/07/25 04:16 [place] # (Auto) 0.3 10^3/uL (0.2-0.9) 05/07/25 04:16 Eos # (Auto) 0.0 10^3/uL (0.0-0.8) 05/07/25 04:16 Baso # (Auto) 0.0 10^3/uL (0.0-0.1) 05/07/25 04:16 Nucleated RBC % (auto) 0 % 05/07/25 04:16 Nucleated RBCs # 0.0 /100WBC 05/07/25 04:16 Specimen Type Arterial 05/04/25 10:58 Sample Site Radial, right 05/04/25 10:58 ABG pH 7.37 (7.35-7.45) 05/04/25 10:58 ABG pCO2 55.8 mmHg (35-45) H 05/04/25 10:58 ABG pO2 88.3 mmHg (80.0-100.0) 05/04/25 10:58 ABG PO2/FiO2 Ratio 275 05/04/25 10:58 ABG HCO3 32.3 mmol/L (22-26) H 05/04/25 10:58 ABG O2 Saturation 97.1 05/04/25 10:58 ABG Base Excess 5.5 mmol/L (-2.0-2.0) H 05/04/25 10:58 Patrick Test Pos 05/04/25 10:58 A-a O2 Gradient 9.5 mmHg (5-10) 05/04/25 10:58 Hematocrit 39.4 % (37-47) 05/04/25 10:58 Hgb O2 Saturation 95.8 % (95-100) 05/04/25 10:58 Carboxyhemoglobin 1.1 %THgb (0.4-20.1) 05/04/25 10:58 Methemoglobin 0.2 % (0.4-1.5) L 05/04/25 10:58 Total Hemoglobin 12.9 g/dL (12-16) 05/04/25 10:58 Sodium 140.0 mmol/L (131-143) 05/04/25 10:58 Potassium 3.9 mmol/L (3.5-5.0) 05/04/25 10:58 Glucose 119.0 mg/dL (70-115) H 05/04/25 10:58 Ionized Calcium 1.1 mmol/L (1.1-1.4) 05/04/25 10:58 O2 Delivery Device Nc 05/04/25 10:58 O2 Liters/Min 3.0 % 05/04/25 10:58 FiO2 32.0 % 05/04/25 10:58 Pricing Strategist ID [place] 05/04/25 10:58 Sodium 142 mmol/L (136-145) 05/07/25 04:16 Potassium 4.2 mmol/L (3.5-5.1) 05/07/25 04:16 Chloride 103 mmol/L (98-107) 05/07/25 04:16 Carbon Dioxide 29 mmol/L (22-29) 05/07/25 04:16 Anion Gap 14.2 (5-19) 05/07/25 04:16 BUN 13 mg/dL (8-23) 05/07/25 04:16 Creatinine 0.5 mg/dL (0.5-0.9) 05/07/25 04:16 GFR Calculation Not Reportable 05/07/25 04:16 Glucose 143 mg/dL (65-115) H 05/07/25 04:16 Calculated Osmolality 297 mOsm/kg (285-295) H 05/07/25 04:16 Lactic Acid 0.6 mmol/L (0.5-2.2) 05/04/25 10:25 Calcium 8.3 mg/dL (8.5-10.5) L 05/07/25 04:16 Total Bilirubin 0.2 mg/dL (0.15-1.2) 05/07/25 04:16 AST 14 U/L (0-32) 05/07/25 04:16 ALT 12 U/L (0-33) 05/07/25 04:16 Alkaline Phosphatase 46 U/L (35-105) 05/07/25 04:16 C-Reactive Protein 24.6 mg/L (0.0-4.9) H 05/04/25 10:25 NT-Pro-B Natriuret Pep 672 pg/mL (0-125) H 05/05/25 03:53 Total Protein 6.3 g/dL (6.6-8.7) L 05/07/25 04:16 Albumin 3.6 g/dL (3.5-5.2) 05/07/25 04:16 Globulin 2.7 g/dL (1.3-4.6) 05/07/25 04:16 Triglycerides 79 mg/dL (0-150) 05/04/25 10:25 Cholesterol 119 mg/dL (0-200) 05/04/25 10:25 LDL Cholesterol, Calc 66 mg/dL (50-129) 05/04/25 10:25 HDL Cholesterol 37 mg/dL (60-100) L 05/04/25 10:25 LDL/HDL Ratio 1.78 RATIO (0.00-3.22) 05/04/25 10:25 Cholesterol/HDL Ratio 3.22 mg/dL (0.0-4.40) 05/04/25 10:25 Procalcitonin 0.04 ng/mL (0-0.5) 05/04/25 10:25 TSH 0.37 uIU/mL (0.27-4.20) 05/04/25 10:25 Influenza A (PCR) Negative (Negative) 05/04/25 11:09 Influenza Type B (PCR) Negative (Negative) 05/04/25 11:09 RSV (PCR) Negative (Negative) 05/04/25 11:09 SARS-CoV-2 (PCR) Negative (Negative) 05/04/25 11:09 Vitals Last Vital Signs Temp 98.2 F 05/07/25 07:47 Pulse 66 05/07/25 07:47 Resp 17 05/07/25 07:47 BP 151/64 05/07/25 07:47 Pulse Ox 98 05/07/25 07:47 O2 Del Method Nasal Cannula 05/07/25 07:47 O2 Flow Rate 3 05/06/25 16:30 FiO2 3 05/07/25 07:25 Discharge Plan Discharge Patient Disposition: Home Condition: Stable Prescriptions: New nicotine (polacrilex) 4 mg Lozenge 4 mg mucous membrane Q2H PRN (Reason: Nicotine Cravings) 30 Days Qty: 24 0RF nicotine 21 mg/24 hr Patch 24 Hour 1 patch transdermal DAILY 30 Days Qty: 28 0RF doxycycline hyclate 100 mg capsule 100 mg PO BID 7 Days Qty: 14 0RF prednisone 10 mg tablet See Rx Instructions .ROUTE .COMPLEX Qty: 53 0RF Rx Instructions: 40mg(4tabs) daily for 5 days, 30mg(3tabs) daily for 5 days, 20mg(2tabs) for 5 days, 10mg for 5 days, 5mg(0.5) daily for 5 days Continued (DME) oxygen 2L via NC See Rx Instructions .Route .MEDSUPPLY Qty: 1 0RF Rx Instructions: As directed Prolia 60 mg/mL syringe 60 mg SUBCUT .q 6mo Qty: 1 0RF fluticasone furoate-vilanterol [Breo Ellipta] 200-25 mcg/dose blister with device 1 inh inhalation DAILY Qty: 60 5RF tiotropium bromide [Spiriva with HandiHaler] 18 mcg capsule, w/inhalation device 1 cap inhalation DAILY Qty: 60 5RF Rx Instructions: puncture 1 cap using device; one dose = 2 inhalations venlafaxine 75 mg capsule,extended release 24hr See Rx Instructions .ROUTE .COMPLEX Qty: 270 1RF Dose Instruction: TAKE TWO CAPSULES BY MOUTH AT NIGHT AND ONE CAPSULE DURING THE DAY Rx Instructions: TAKE TWO CAPSULES BY MOUTH AT NIGHT AND ONE CAPSULE DURING THE DAY. ergocalciferol (vitamin D2) 1,250 mcg (50,000 unit) capsule 1,250 mcg PO .weekly Qty: 12 0RF pregabalin 75 mg capsule 75 mg PO BID Qty: 60 0RF Rx Instructions: needs appointment hydrocodone-acetaminophen 10-325 mg tablet 1 tab PO Q6H MDD 4 daily PRN (Reason: Pain) cyclobenzaprine 10 mg tablet 10 mg PO TID ropinirole 1 mg tablet 1 mg PO BID trazodone 50 mg tablet 50 mg PO BEDTIME cetirizine 10 mg tablet 10 mg PO DAILY pravastatin 80 mg tablet 80 mg PO QPM dexlansoprazole 60 mg capsule,biphase delayed releas 60 mg PO DAILY Discharge Order = DC NOW: Discharge Order (Routine); Ordered 05/07/25 Ordered By: Donis Rojo Other Ambulatory Orders: DME: [facility] (Order) Location: None Selected Ordered By: Donis Rojo Referrals: Mayito Ramos MD [Physician, Pulmonology] - 1-3 days Discharge Diet: Cardiac Discharge Activity: Resume usual activity Patient Instructions: Opioid Safety, Patient Portal & Aneta Instructions Discharge Attestations Time Spent in Discharge Care*: greater than 30 min Quality Metrics Clinical Quality Measures [ No reported AMI, CVA or VTE this stay] Coding Level of Care Code 73594 Total time (in minutes) for Discharge: 45 Diagnoses Acute hypoxic respiratory failure J96.01 Acute respiratory distress R06.03 Pneumonia J18.9
[2025-05-07] MEDS: pantoprazole 40 mg SDV IVP (10:45)
[2025-05-07] MEDS: cefTRIAXone 1,000 mg SDV 1000 MG IVP (11:19)
== END 2025-05-07 13:30 | disposition home or self-care (01) | DRG 189 ==
LOC: ER 10:57 → ICU 11:40 → MEDSURG 05-06 17:09
PROVIDERS: Admitting Provider Family Medicine; Emergency Provider Family Medicine; PCP Nurse Practitioner Family; Visit Provider Family Medicine
DX: J80 Acute respiratory distress syndrome (principal); J18.9 Pneumonia, unspecified organism; J44.0 Chronic obstructive pulmonary disease with (acute) lower respiratory infection; F17.210 Nicotine dependence, cigarettes, uncomplicated; E78.5 Hyperlipidemia, unspecified; I10 Essential (primary) hypertension; Z90.49 Acquired absence of other specified parts of digestive tract; F41.9 Anxiety disorder, unspecified; F40.240 Claustrophobia
CPT/HCPCS: 36415; 36600; 71045; 71275; 80051; 80053; 80061; 82330; 82805; 83605; 83880; 84145; 84443; 85025; 86140; 87040; 87070; 87205; 87637; 93005; 94640; 94660; 94760; 96365; 96372; 96375; 97110; 97116; 97162; 97167; 97530; 99291; J0456; J0696; J1650; J2060; J2470; J2919; J7030; J7050; J7626; J9999

== ENCOUNTER → 2025-05-18 13:07 | Outpatient (BNVA) | payer MEDICARE, SELFPAY | PROVIDERS: PCP Nurse Practitioner Family; Visit Provider Internal Medicine | DX: J44.1 Chronic obstructive pulmonary disease with (acute) exacerbation (principal); R91.8 Other nonspecific abnormal finding of lung field; R59.0 Localized enlarged lymph nodes; Z99.81 Dependence on supplemental oxygen; Z87.891 Personal history of nicotine dependence; J44.9 Chronic obstructive pulmonary disease, unspecified | CPT/HCPCS: 99204; Q3014 ==

== ENCOUNTER 2025-05-22 14:11 | Oncology outpatient (recurring) (ONCR) | payer MEDICARE, SELFPAY ==
--- NOTE | 2025-05-22 14:30 | PETR_ITS ---
PROCEDURE INFORMATION: Exam: PET/CT Skull Base to Mid-thigh Exam date and time: 05/22/2025 3:17 PM Age: 69 years old Clinical indication: Symptoms: Mediastinal lymphedenopathy. Previously provided history of left lung cancer. LABS AND CLINICAL REPORTS: Glucose: 191 mg/dl Treatment strategy for malignancy (PET staging): Initial Staging (PI) TECHNIQUE: Imaging protocol: Following at least four-hour fasting and following the injection of radiopharmaceutical, low dose CT images were obtained. Then, PET images were obtained. Attenuation corrected images were constructed using the CT scan. Fused images of PET and CT were reviewed. The standardized uptake values (SUV) reported below are maximum values within a region of interest, expressed in gm/ml. Exam includes orbital meatal line to mid-thigh. SUV normalization method: BodyWeight Radiopharmaceutical: 10.39 mCi F-18 FDG (Fluorodeoxyglucose), IV. Time of imaging post radiopharmaceutical administration: 44 minutes Injection site: LEFT AC COMPARISON: CTA chest 05/04/2025, PT PET skull to thigh SUBS [id number] 08/22/2024 4:32 PM FINDINGS: Brain: Visualized brain has normal physiologic uptake. Pharynx: No abnormal uptake. Larynx: No abnormal uptake. Lungs, pleura and trachea: Previously noted posterior left lower lobe minimal residual cavitary nodularity measuring approximately 1.0 x 0.7 cm on series 202, image 86 demonstrates an SUV max 1.1 (previously 1.3). An anterior solid 5 mm left upper lobe nodule demonstrates an SUV max 1.4 on PET series 301, image 88. It measured 3-4 mm on the prior PET-CT with a previous SUV max 0.4. A left upper lobe calcified granuloma is present. Non radiotracer avid biapical pleural scarring is present. Moderate bilateral centrilobular emphysematous changes. Non radiotracer avid streaky density in the anterior aspect of the upper lobes and right middle lobe is compatible with scarring. Previously noted nodularity in the anterior inferior right middle lobe, and small nodular densities in the periphery of the right lower lobe on the prior CT of 05/04/2025 have resolved. Heart: Normal physiologic uptake. Mediastinal space: No abnormal uptake. Liver: No abnormal uptake. Gallbladder and biliary ducts: No abnormal uptake. Pancreas: No abnormal uptake. Spleen: No abnormal uptake. Calcified granulomas in the spleen are present. Adrenal glands: No abnormal uptake. Kidneys and ureters: Normal physiologic uptake. Stomach and bowel: There is physiologic appearing uptake in the stomach and bowel. Vasculature: No abnormal uptake. Multifocal regions of atherosclerotic calcification are identified. Mild prominence of the caliber of the pulmonary arteries is present. Lymph nodes: No abnormal uptake. Mildly prominent mediastinal and mother hilar lymph nodes are not as well delineated on the current CT compared with the recent CT of 05/04/2025 secondary to lack of intravenous contrast. No abnormal uptake in these regions is identified. No lymphadenopathy in the head, neck, abdomen, pelvis, and extremities. Skeleton: No abnormal uptake in the visualized axial and appendicular skeleton. Degenerative changes in the spine are present and there are bilateral L5 pars defects with grade 1 anterolisthesis of L5 on S1. Similar ovoid sclerotic density in the medial right iliac bone (series 202, image 192) is not radiotracer avid, likely related to a benign bone island. Soft tissues: No abnormal uptake in the visualized head, neck, chest, abdomen, pelvis, and extremities. METRICS: Mediastinal blood pool: SUV max 1.6, SUV mean 1.4 Liver uptake: SUV max 2.0, SUV mean 1.8 PET/PET skull to thigh SUBS [id number] IMPRESSION: 1. No evidence of radiotracer avid malignancy. 2. No evidence of radiotracer avid lymph nodes. Mild prominence of bilateral hilar and mediastinal lymph nodes is grossly similar compared with 05/04/2025. Deauville score: 2 3. Similar residual region of cavitary nodularity in the posterior left lower lobe with interval decrease in uptake, which remains less than mediastinal blood pool activity. 4. A small solid left upper lobe nodule is not radiotracer avid. Assessment of small nodules can be limited by PET-CT. 5. Interval resolution of nodularity in the right middle lobe and right lower lobe compared with 05/04/2025. 6. Prominence of the caliber of the pulmonary arteries is noted, which can be associated with pulmonary arterial hypertension. 7. The patient's serum glucose at the time of the examination with 191 mg/dL. There is no provided history of known diabetes mellitus. Correlation with clinical history is recommended. 8. Additional nonurgent findings as detailed above. COMMENTS: The patient weight utilized to calculate SUV values of 39.9 kg was verified from the technologist worksheet.
== END 2025-06-05 23:59 | disposition home or self-care (01) ==
LOC: ONCMED 14:14
PROVIDERS: PCP Nurse Practitioner Family; Visit Provider Radiology Radiation Oncology
DX: R91.8 Other nonspecific abnormal finding of lung field (principal); R59.0 Localized enlarged lymph nodes; R93.89 Abnormal findings on diagnostic imaging of other specified body structures; J84.10 Pulmonary fibrosis, unspecified; J98.4 Other disorders of lung; J43.2 Centrilobular emphysema; D73.89 Other diseases of spleen; I70.90 Unspecified atherosclerosis; M47.9 Spondylosis, unspecified; R93.7 Abnormal findings on diagnostic imaging of other parts of musculoskeletal system; M43.17 Spondylolisthesis, lumbosacral region
CPT/HCPCS: 78815; A9552

== ENCOUNTER 2025-06-04 09:05 | Outpatient (CLI) | payer MEDICARE, SELFPAY ==
[2025-06-04 09:34] VITALS: PULSE 87; RESP 18; O2SAT 91
== END 2025-06-04 09:06 | disposition home or self-care (01) ==
LOC: RT 09:06
PROVIDERS: PCP Nurse Practitioner Family; Visit Provider Internal Medicine
DX: J44.9 Chronic obstructive pulmonary disease, unspecified (principal)
CPT/HCPCS: 94060; 94726; 94729; J7613

== ENCOUNTER 2025-06-09 11:42 | Outpatient (CLI) | payer MEDICARE, SELFPAY ==
[2025-06-09 12:23] LABS: Hematocrit 37.0 % (36-47); Hemoglobin 12.10 g/dL (11.27-16.99); Mean Corpuscular HGB Conc 32.7 g/dL (30-55); Mean Corpuscular Hemoglobin 31.8 pg (27-33); Mean Corpuscular Volume 97.4 fl (85-98); Nucleated Red Blood Cells % 0 %; Platelet Count 237 10^3/cmm (157-399); Red Blood Count 3.80 10^6/uL (3.85-5.65); White Blood Count 10.37 10^3/uL (3.29-11.43)
[2025-06-09 12:47] LABS: Estmated Average Glucose 114; Hemoglobin A1C 5.6 % (4.0-6.0)
== END 2025-06-09 11:43 | disposition home or self-care (01) ==
LOC: LAB 11:43
PROVIDERS: Internal Medicine; PCP Nurse Practitioner Family; Visit Provider Nurse Practitioner Family
DX: J44.9 Chronic obstructive pulmonary disease, unspecified (principal); R73.9 Hyperglycemia, unspecified
CPT/HCPCS: 83036; 85025

== ENCOUNTER → 2025-07-13 10:06 | Outpatient (BNVA) | payer MEDICARE, SELFPAY | PROVIDERS: PCP Nurse Practitioner Family; Visit Provider Internal Medicine | DX: J44.1 Chronic obstructive pulmonary disease with (acute) exacerbation (principal); R91.8 Other nonspecific abnormal finding of lung field; R59.0 Localized enlarged lymph nodes; J98.4 Other disorders of lung; Z99.81 Dependence on supplemental oxygen; Z87.891 Personal history of nicotine dependence | CPT/HCPCS: 99214; Q3014 ==